=== PATIENT | female | born 1940 | race Caucasian/White ===

== ENCOUNTER → 2017-03-12 | Outpatient (CLI) | payer OTHER ==
[~2017-03-12] MED LIST: ASPI81TA21 PO; CALCTAB7 PO; LISI-725 PO; SIMV20TA2 PO; TRIA75TA53 PO
--- NOTE | 2017-03-12 12:53 | MAMMOGRAPHY REPORT ---
BILATERAL DIGITAL SCREENING MAMMOGRAM WITH CAD: 03/12/2017 CLINICAL HISTORY: Routine screening. Patient has no complaints. TECHNIQUE: Current study was also evaluated with a Computer Aided Detection (CAD) system. Bilatera l CC and MLO views were obtained. COMPARISON: Comparison is made to exams dated: 03/09/2016 mammogram, 03/07/2015 mammogram, 03/06/2014 mammogram, 02/27/2013 mammogram, 02/25/2012 mammogram, and 02/23/2011 mammogram - [facility]. BREAST COMPOSITION: The tissue of both breasts is almost entirely fatty. FINDINGS: No suspicious masses, calcifications, or areas of architectural distortion are noted in e ither breast. There has been no significant interval change compared to prior exams. IMPRESSION: ACR BI-RADS CATEGORY 1: NEGATIVE There is no mammographic evidence of malignancy. A 1 year screening mammogram is recommended. The p atient will receive written notification of the results. Approximately 10% of breast cancers are not detected with mammography. A negative mammographic repor t should not delay biopsy if a clinically suggestive mass is present. Nelly Butler M.D. /:03/12/2017 11:41:57 Certification Officer: Juju MARTINEZ(R)(M), [facility] letter sent: Normal 1/2 BI-RADS Code: ACR BI-RADS Category 1: Negative
== END | disposition home or self-care (01) ==
LOC: C.MAMM 11:01
PROVIDERS: ATTEND Obstetrics & Gynecology
DX: Z12.31 Encounter for screening mammogram for malignant neoplasm of breast (principal)

== ENCOUNTER → 2017-04-01 | Outpatient (CLI) | payer OTHER ==
[2017-04-01 14:33] LABS: BASO % 0.8 %; BASO ABS # 0.05 K/uL (0-0.2); COMPLETE YES; EOS % 3.6 %; HEMATOCRIT 36.9 % (37-47); IG% 0.2 %; LYMPH ABS # 1.48 K/uL (1.2-3.4); MEAN CELL VOLUME 87.6 fL (80-100); MEAN CORPUSCULAR HEMOGLOBIN 29.2 pg (25-34); MEAN CORPUSCULAR HGB CONC 33.3 g/dl (32-36); MEAN PLATELET VOLUME 9.5 fL (7.4-10.4); NEUT % 63.4 %; PLATELET COUNT 275 K/uL (130-400); RED BLOOD COUNT 4.21 M/uL (4.2-5.4); WHITE BLOOD COUNT 6.43 K/uL (4.8-10.8)
[2017-04-01 14:45] LABS: ALKALINE PHOSPHATASE 163 U/L (45-117); ALT/SGPT 36 U/L (12-78); AST/SGOT 21 U/L (15-37); BLOOD UREA NITROGEN 30 mg/dl (7-18); BUN/CREATININE RATIO 21.2 (10-20); CALCIUM 9.4 mg/dl (8.5-10.1); CARBON DIOXIDE 28 mmol/L (21-32); CHLORIDE 102 mmol/L (98-107); GLUCOSE 89 mg/dl (70-99); POTASSIUM 4.9 mmol/L (3.5-5.1); SODIUM 138 mmol/L (136-145)
[2017-04-01 15:20] LABS: CHOLESTEROL 150 mg/dl (0-200); CHOLESTEROL/HDL RATIO 3.1; HDL CHOLESTEROL 48 mg/dl; TRIGLYCERIDES 195 mg/dl (0-150); VERY LOW DENSITY LIPOPROT CALC 39 mg/dl
[2017-04-02 06:42] LABS: ESTIMATED AVERAGE GLUCOSE 131 mg/dl; HA1C FLAG Normal (Normal)
== END | disposition home or self-care (01) ==
LOC: C.LABSPEC 14:12
PROVIDERS: ATTEND Internal Medicine
DX: R73.9 Hyperglycemia, unspecified (principal); I10 Essential (primary) hypertension; E78.5 Hyperlipidemia, unspecified; E04.9 Nontoxic goiter, unspecified; E55.9 Vitamin D deficiency, unspecified

== ENCOUNTER → 2017-05-26 | Outpatient (CLI) | payer OTHER ==
[2017-05-26 11:26] LABS: URINE APPEARANCE CLEAR (CLEAR); URINE BILIRUBIN NEG (NEG); URINE COLOR YELLOW; URINE NITRITE NEG (NEG); URINE SPECIFIC GRAVITY 1.013 (1.000-1.030); UROBILINOGEN NEG (NEG)
[2017-05-26 11:28] LABS: MANUAL MICROSCOPIC REQUIRED? NO; REVIEW REQ? NO
== END | disposition home or self-care (01) ==
LOC: C.LABSPEC 10:48
PROVIDERS: ATTEND Obstetrics & Gynecology
DX: R39.9 Unspecified symptoms and signs involving the genitourinary system (principal); Z01.419 Encounter for gynecological examination (general) (routine) without abnormal findings

== ENCOUNTER → 2017-05-26 | Outpatient (CLI) | payer OTHER | END | disposition home or self-care (01) | LOC: C.PAPS 11:25 | PROVIDERS: ATTEND Obstetrics & Gynecology | DX: Z01.419 Encounter for gynecological examination (general) (routine) without abnormal findings (principal) ==

== ENCOUNTER → 2017-09-24 | Outpatient (CLI) | payer OTHER | END | disposition home or self-care (01) | LOC: C.LABSPEC 12:40 | PROVIDERS: ATTEND Internal Medicine | DX: Z12.11 Encounter for screening for malignant neoplasm of colon (principal) ==

== ENCOUNTER → 2017-10-01 | Outpatient (CLI) | payer OTHER ==
[2017-10-01 13:13] LABS: ESTIMATED AVERAGE GLUCOSE 131 mg/dl; HA1C FLAG Normal (Normal)
[2017-10-01 13:34] LABS: BLOOD UREA NITROGEN 31 mg/dl (7-18); BUN/CREATININE RATIO 20.8 (10-20); CALCIUM 9.8 mg/dl (8.5-10.1); CARBON DIOXIDE 27 mmol/L (21-32); CHLORIDE 102 mmol/L (98-107); CREATININE 1.48 mg/dl (0.60-1.20); GLUCOSE 97 mg/dl (70-99); POTASSIUM 4.4 mmol/L (3.5-5.1); SODIUM 136 mmol/L (136-145)
[2017-10-01 13:38] LABS: CHOLESTEROL 167 mg/dl (0-200); CHOLESTEROL/HDL RATIO 3.3; HDL CHOLESTEROL 50 mg/dl; TRIGLYCERIDES 218 mg/dl (0-150); VERY LOW DENSITY LIPOPROT CALC 44 mg/dl
== END | disposition home or self-care (01) ==
LOC: C.LABSPEC 12:38
PROVIDERS: ATTEND Internal Medicine
DX: R73.9 Hyperglycemia, unspecified (principal); I10 Essential (primary) hypertension; E78.5 Hyperlipidemia, unspecified; E55.9 Vitamin D deficiency, unspecified

== ENCOUNTER 2020-01-20 00:38 | Inpatient (IN) ==
[2020-01-20] MEDS ORDERED: ACETAMINOPHEN 1,000 MG/100 ML VIAL IV STA (00:46)
--- NOTE | 2020-01-20 00:50 | Emergency Department Note ---
History of Present Illness General Chief complaint: Fever Stated complaint: FEVER/COUGH Time Seen by Provider: 01/20/20 00:46 Source: patient, EMS, RN notes reviewed and old records reviewed Mode of arrival: EMS Limitations: no limitations History of Present Illness Provider complaint: fever, shortness of breath Onset (ago): day(s) 2 Location: chest Current Pain Intensity: 0 Associated symptoms: + denies other symptoms Treatments prior to arrival: other (Oxygen) This is an 79-year-old female who presents emergency department with fever of 2 days duration along with shortness of breath. The patient has been in quarantine with the rest of her family. Since that time the patient developed a fever along with altered mental status. Her family called EMS who arrived on scene to find the patient hypoxic 78% on room air. She was placed on oxygen which she is not normally on. Upon arrival to the emergency department the patient has no complaints. Home Medications Home Medications Medication Instructions Recorded Confirmed Type albuterol sulfate [Ventolin HFA] 1 - 2 puff INHALATION DAILY PRN 01/20/20 01/20/20 History amlodipine 2.5 mg PO DAILY 01/20/20 01/20/20 History lisinopril 20 mg PO DAILY 01/20/20 01/20/20 History metoprolol tartrate 50 mg PO BID 01/20/20 01/20/20 History simvastatin 20 mg PO HS 01/20/20 01/20/20 History triamterene-hydrochlorothiazid 1 tab PO DAILY 01/20/20 01/20/20 History Allergies Allergy/AdvReac Type Severity Reaction Status Date / Time amoxicillin AdvReac Hypotension Verified 01/20/20 01:40 Past Med/Surg History Social History Preferred Language: Yi Communication Ability: Effective Beliefs That Will Affect Care: None Current Living Situation: Spouse Other Information That Helps Us Care for You: No Feels Safe at Home: Yes Safety Concerns: Feels Safe At This Time Smoking Status: Unknown if ever smoked Hx Alcohol Use: No Hx Substance Use: No Review of Systems A total of 10 systems reviewed and were otherwise negative Physical Exam Vital Signs Vital Signs - 24 hr 01/20/20 00:38 01/20/20 00:40 01/20/20 00:46 Temperature 39.3 C H Temperature Source Oral Pulse Rate 103 H 103 H Respiratory Rate 23 27 H Blood Pressure 110/46 L Blood Pressure Mean 67 Pulse Oximetry 89 L 94 Oxygen Delivery Method Room Air Nasal Cannula Oxygen Flow Rate 2 Sepsis Recent Fever Within 48 Hours Yes Sepsis New/Unexplained Change in Mental Status Yes Sepsis Action Taken by Nursing Physician Notified Oxygen Flow Rate - Titration Pulse Oximetry Post Tiitration 01/20/20 00:55 01/20/20 01:00 01/20/20 01:30 Temperature Temperature Source Pulse Rate 133 H 164 H Respiratory Rate 29 H 26 H Blood Pressure 90/53 L Blood Pressure Mean 60 Pulse Oximetry 87 L 95 95 Oxygen Delivery Method Nasal Cannula Nasal Cannula Nasal Cannula Oxygen Flow Rate 2 4 4 Sepsis Recent Fever Within 48 Hours Sepsis New/Unexplained Change in Mental Status Sepsis Action Taken by Nursing Oxygen Flow Rate - Titration 4 Pulse Oximetry Post Tiitration 94 01/20/20 01:32 01/20/20 01:45 01/20/20 01:52 Temperature 38.6 C H Temperature Source Oral Pulse Rate 159 H 154 H Respiratory Rate 28 H 21 Blood Pressure 98/44 L Blood Pressure Mean 62 Pulse Oximetry 94 93 Oxygen Delivery Method Nasal Cannula Nasal Cannula Oxygen Flow Rate 4 4 Sepsis Recent Fever Within 48 Hours Sepsis New/Unexplained Change in Mental Status Sepsis Action Taken by Nursing Oxygen Flow Rate - Titration Pulse Oximetry Post Tiitration 01/20/20 02:15 01/20/20 02:30 01/20/20 02:33 Temperature Temperature Source Pulse Rate 135 H 145 H 125 H Respiratory Rate 26 H 25 H 25 H Blood Pressure 83/48 L Blood Pressure Mean 51 Pulse Oximetry 93 93 94 Oxygen Delivery Method Nasal Cannula Nasal Cannula Nasal Cannula Oxygen Flow Rate 4 4 4 Sepsis Recent Fever Within 48 Hours Sepsis New/Unexplained Change in Mental Status Sepsis Action Taken by Nursing Oxygen Flow Rate - Titration Pulse Oximetry Post Tiitration 01/20/20 02:36 01/20/20 02:45 01/20/20 03:01 Temperature 37.4 C Temperature Source Oral Pulse Rate 128 H 143 H Respiratory Rate 29 H 22 Blood Pressure 86/54 L Blood Pressure Mean 63 Pulse Oximetry 93 95 Oxygen Delivery Method Nasal Cannula Nasal Cannula Oxygen Flow Rate 4 4 Sepsis Recent Fever Within 48 Hours Sepsis New/Unexplained Change in Mental Status Sepsis Action Taken by Nursing Oxygen Flow Rate - Titration Pulse Oximetry Post Tiitration 01/20/20 03:15 01/20/20 03:18 01/20/20 03:30 Temperature Temperature Source Pulse Rate 123 H 131 H 124 H Respiratory Rate 32 H 34 H 33 H Blood Pressure 84/55 L Blood Pressure Mean 62 Pulse Oximetry 95 96 91 Oxygen Delivery Method Nasal Cannula Nasal Cannula Nasal Cannula Oxygen Flow Rate 4 4 4 Sepsis Recent Fever Within 48 Hours Sepsis New/Unexplained Change in Mental Status Sepsis Action Taken by Nursing Oxygen Flow Rate - Titration Pulse Oximetry Post Tiitration 01/20/20 03:31 Temperature Temperature Source Pulse Rate 136 H Respiratory Rate 28 H Blood Pressure 116/67 Blood Pressure Mean 89 Pulse Oximetry 93 Oxygen Delivery Method Nasal Cannula Oxygen Flow Rate 4 Sepsis Recent Fever Within 48 Hours Sepsis New/Unexplained Change in Mental Status Sepsis Action Taken by Nursing Oxygen Flow Rate - Titration Pulse Oximetry Post Tiitration GENERAL: Patient is a healthy-appearing well-nourished female HEAD: Normocephalic atraumatic EYES: Ocular movements intact pupils equal and react to light OROPHARYNX mucous membranes are moist no exudates present no erythema or edema present NECK: Supple no nuchal rigidity CHEST: Good equal expansion LUNGS: distant lung sounds CARDIAC: Normal S1 and S2 ABDOMEN: Soft nontender no guarding BACK: No CVA tenderness EXTREMITIES: No pain upon palpation normal muscle strength in all groups no clubbing cyanosis or edema NEURO: Patient is following commands is answering questions appropriately. Alert and oriented x3 Cranial Nerves 2-12 grossly intact Course Administered Medications Norepinephrine Bitartrate 4 mg (/ Dextrose) 254 mls @ 16.669 mls/hr IV .[id number] STA; Protocol Stop: 01/20/20 19:29 Last Admin: 01/20/20 04:20 Dose: 0.05 mcg/kg/min, 16.7 mls/hr Documented by: [id number] Cosigned by: [id number] Discontinued Medications Furosemide (Lasix) 40 mg IV NOW STA Stop: 01/20/20 03:50 Last Admin: 01/20/20 04:05 Dose: 40 mg Documented by: [id number] Acetaminophen (Ofirmev) 1,000 mg in 100 mls @ 400 mls/hr IV NOW STA Stop: 01/20/20 01:00 Last Infusion: 01/20/20 01:18 Dose: 0 mls/hr Documented by: [id number] Admin: 01/20/20 01:03 Dose: 400 mls/hr Documented by: [id number] Magnesium Sulfate/Dextrose (Magnesium Sulfate / D5w) 1 gm in 100 mls @ 100 mls/hr IV ONE ONE Stop: 01/20/20 01:54 Last Infusion: 01/20/20 02:00 Dose: 0 mls/hr Documented by: [id number] Admin: 01/20/20 01:03 Dose: 100 mls/hr Documented by: [id number] Sodium Chloride (Nss 1000ml) 1,000 mls @ 999 mls/hr IV .Q1H1M ONE Stop: 01/20/20 02:29 Last Infusion: 01/20/20 02:38 Dose: 0 mls/hr Documented by: [id number] Admin: 01/20/20 01:43 Dose: 999 mls/hr Documented by: [id number] Levofloxacin/Dextrose (Levaquin/D5w) 750 mg in 150 mls @ 100 mls/hr IV NOW STA Stop: 01/20/20 02:58 Last Infusion: 01/20/20 03:28 Dose: 0 mls/hr Documented by: [id number] Admin: 01/20/20 01:58 Dose: 100 mls/hr Documented by: [id number] Vancomycin HCl (Vancomycin Hcl) 1,000 mg in 270 mls @ 125 mls/hr IV NOW STA Stop: 01/20/20 03:38 Last Infusion: 01/20/20 04:00 Dose: 0 mls/hr Documented by: [id number] Admin: 01/20/20 01:48 Dose: 125 mls/hr Documented by: [id number] Cefepime HCl (Maxipime) 2,000 mg in 20 mls @ 5 mls/min IV NOW STA Stop: 01/20/20 01:32 Last Admin: 01/20/20 01:43 Dose: 5 mls/min Documented by: [id number] Sodium Chloride (Nss 1000ml) 1,000 mls @ 999 mls/hr IV .Q1H1M ONE Stop: 01/20/20 03:04 Last Infusion: 01/20/20 03:39 Dose: 0 mls/hr Documented by: [id number] Admin: 01/20/20 02:38 Dose: 999 mls/hr Documented by: [id number] Sodium Chloride (Nss 1000ml) 500 mls @ 999 mls/hr IV .Q31M ONE Stop: 01/20/20 03:01 Last Infusion: 01/20/20 03:41 Dose: 0 mls/hr Documented by: [id number] Admin: 01/20/20 02:54 Dose: 750 mls/hr Documented by: [id number] Sodium Chloride (Nss 1000ml) 250 mls @ 999 mls/hr IV .Q16M ONE Stop: 01/20/20 02:47 Last Infusion: 01/20/20 03:36 Dose: 0 mls/hr Documented by: [id number] Admin: 01/20/20 03:06 Dose: 500 mls/hr Documented by: [id number] Metoprolol Tartrate (Lopressor) 5 mg IV Q5M PRN PRN Reason: Tachycardia Stop: 02/19/20 03:48 Last Admin: 01/20/20 04:10 Dose: 5 mg Documented by: [id number] Critical Care Time I have personally spent greater than 90 minutes of critical care time in the direct management of this patient. This includes bedside care, interpretation of diagnostic studies, and testing, discussion with consultants, patient, and family members, and other required patient management activities. This 90 minutes is in excess of all separately billable procedures. Medical Decision Making Differential Diagnosis Sepsis, UTI, pneumonia, metabolic, electrolyte abnormalities, cardiac sources, intracerebral event, toxicologic, neurologic, as well as other pathologies. Medical Records Attestation: I reviewed the patient's medical records. Home Medications Current Medication List: was personally reviewed by me Laboratory Data Attestation: I reviewed the patient's lab results. Result diagrams: 01/20/20 00:48 01/20/20 00:48 Lab Results 01/20/20 01/20/20 01/20/20 Range/Units 00:48 00:48 00:48 WBC 7.13 (4.8-10.8) K/uL RBC 3.96 L (4.2-5.4) M/uL Hgb 11.8 L (12.0-16.0) g/dL Hct 35.1 L (37-47) % MCV 88.6 (80-100) fL MCH 29.8 (25-34) pg MCHC 33.6 (32-36) g/dL RDW Std Deviation 45.3 (36.4-46.3) fL RDW Coeff of Anastasiya 13.8 (11.5-14.5) % Plt Count 200 (130-400) K/uL MPV 9.3 (7.4-10.4) fL Immature Gran % (Auto) 0.1 % Neut % (Auto) 81.0 % Lymph % (Auto) 14.0 % [place] % (Auto) 4.6 % Eos % (Auto) 0.0 % Baso % (Auto) 0.3 % Immature Gran # (Auto) 0.01 (0.00-0.02) K/uL Neut # (Auto) 5.77 (1.4-6.5) K/uL Lymph # (Auto) 1.00 L (1.2-3.4) K/uL [place] # (Auto) 0.33 (0.11-0.59) K/uL Eos # (Auto) 0.00 (0-0.5) K/uL Baso # (Auto) 0.02 (0-0.2) K/uL PT 11.4 (9.0-12.0) Seconds INR 1.1 (0.9-1.1) APTT 23.0 (21.0-31.0) Seconds PTT Ratio 0.8 Sodium 136 (136-145) mmol/L Potassium 4.3 (3.5-5.1) mmol/L Chloride 107 (98-107) mmol/L Carbon Dioxide 19 L (21-32) mmol/L Anion Gap 10.0 (3-11) BUN 49 H (7-18) mg/dl Creatinine 2.86 H (0.6-1.2) mg/dl Est Cr Clr Drug Dosing 17.2 ml/min Est GFR ( Amer) 17.2 Est GFR (Non-Af Amer) 14.8 BUN/Creatinine Ratio 17.1 (10-20) Glucose 149 H (70-99) mg/dl Lactate (0.4-2.0) mmol/L Calcium 9.7 (8.5-10.1) mg/dl Magnesium 1.5 L (1.8-2.4) mg/dl Total Bilirubin 0.6 (0.2-1) mg/dl AST 165 H (15-37) U/L ALT 68 (12-78) U/L Alkaline Phosphatase 166 H (45-117) U/L Total Creatine Kinase 6071 H (26-192) U/L CK-MB (CK-2) 14.1 H (0.5-3.6) ng/ml CK/CKMB % Calc 0.2 (0-3.0) Troponin I < 0.015 (0-0.045) ng/ml NT-Pro-B Natriuret Pep 390 (0-1800) pg/ml Total Protein 7.5 (6.4-8.2) gm/dl Albumin 3.7 (3.4-5.0) gm/dl Globulin 3.8 (2.5-4.0) gm/dl Albumin/Globulin Ratio 1.0 (0.9-2) Procalcitonin (0-0.5) ng/ml Random Cortisol mcg/dl Urine Color Urine Appearance (Clear) Urine pH (4.5-7.5) Ur Specific [employer] (1.000-1.030) Urine Protein (Negative) Urine Glucose (UA) (Negative) Urine Ketones (Negative) Urine Blood (Negative) Urine Nitrite (Negative) Urine Bilirubin (Negative) Urine Urobilinogen (Negative) Ur Leukocyte Esterase (Negative) Urine WBC (Auto) (0-5) /hpf Urine RBC (Auto) (0-4) /hpf U Hyaline Cast (Auto) (0-5) /lpf U Epithel Cells (Auto) (0-5) /lpf Urine Bacteria (Auto) (Negative) Granular Casts (0) /lpf Adenovirus (PCR) (NotDetected) B. pertussis DNA (PCR) (NotDetected) B.parapertussis DNA PCR (NotDetected) C. pneumoniae DNA (PCR) (NotDetected) Coronavirus OC43 (PCR) (NotDetected) Coronavirus HKU1 (PCR) (NotDetected) Coronavirus 229E (PCR) (NotDetected) Coronavirus NL63 (PCR) (NotDetected) Human Metapneumovir PCR (NotDetected) Influenza Type A (PCR) (Neg) Influenza Type B (PCR) (Neg) M. pneumoniae (PCR) (NotDetected) Parainfluenza 1 (PCR) (NotDetected) Parainfluenza 2 (PCR) (NotDetected) Parainfluenza 3 (PCR) (NotDetected) Parainfluenza 4 (PCR) (NotDetected) RSV (PCR) (NotDetected) Entero/Rhino (PCR) (NotDetected) 01/20/20 01/20/20 01/20/20 Range/Units 00:48 00:48 00:48 WBC (4.8-10.8) K/uL RBC (4.2-5.4) M/uL Hgb (12.0-16.0) g/dL Hct (37-47) % MCV (80-100) fL MCH (25-34) pg MCHC (32-36) g/dL RDW Std Deviation (36.4-46.3) fL RDW Coeff of Anastasiya (11.5-14.5) % Plt Count (130-400) K/uL MPV (7.4-10.4) fL Immature Gran % (Auto) % Neut % (Auto) % Lymph % (Auto) % [place] % (Auto) % Eos % (Auto) % Baso % (Auto) % Immature Gran # (Auto) (0.00-0.02) K/uL Neut # (Auto) (1.4-6.5) K/uL Lymph # (Auto) (1.2-3.4) K/uL [place] # (Auto) (0.11-0.59) K/uL Eos # (Auto) (0-0.5) K/uL Baso # (Auto) (0-0.2) K/uL PT (9.0-12.0) Seconds INR (0.9-1.1) APTT (21.0-31.0) Seconds PTT Ratio Sodium (136-145) mmol/L Potassium (3.5-5.1) mmol/L Chloride (98-107) mmol/L Carbon Dioxide (21-32) mmol/L Anion Gap (3-11) BUN (7-18) mg/dl Creatinine (0.6-1.2) mg/dl Est Cr Clr Drug Dosing ml/min Est GFR ( Amer) Est GFR (Non-Af Amer) BUN/Creatinine Ratio (10-20) Glucose (70-99) mg/dl Lactate 2.6 H* (0.4-2.0) mmol/L Calcium (8.5-10.1) mg/dl Magnesium (1.8-2.4) mg/dl Total Bilirubin (0.2-1) mg/dl AST (15-37) U/L ALT (12-78) U/L Alkaline Phosphatase (45-117) U/L Total Creatine Kinase (26-192) U/L CK-MB (CK-2) (0.5-3.6) ng/ml CK/CKMB % Calc (0-3.0) Troponin I (0-0.045) ng/ml NT-Pro-B Natriuret Pep (0-1800) pg/ml Total Protein (6.4-8.2) gm/dl Albumin (3.4-5.0) gm/dl Globulin (2.5-4.0) gm/dl Albumin/Globulin Ratio (0.9-2) Procalcitonin 1.50 H (0-0.5) ng/ml Random Cortisol 73.09 mcg/dl Urine Color Urine Appearance (Clear) Urine pH (4.5-7.5) Ur Specific [employer] (1.000-1.030) Urine Protein (Negative) Urine Glucose (UA) (Negative) Urine Ketones (Negative) Urine Blood (Negative) Urine Nitrite (Negative) Urine Bilirubin (Negative) Urine Urobilinogen (Negative) Ur Leukocyte Esterase (Negative) Urine WBC (Auto) (0-5) /hpf Urine RBC (Auto) (0-4) /hpf U Hyaline Cast (Auto) (0-5) /lpf U Epithel Cells (Auto) (0-5) /lpf Urine Bacteria (Auto) (Negative) Granular Casts (0) /lpf Adenovirus (PCR) (NotDetected) B. pertussis DNA (PCR) (NotDetected) B.parapertussis DNA PCR (NotDetected) C. pneumoniae DNA (PCR) (NotDetected) Coronavirus OC43 (PCR) (NotDetected) Coronavirus HKU1 (PCR) (NotDetected) Coronavirus 229E (PCR) (NotDetected) Coronavirus NL63 (PCR) (NotDetected) Human Metapneumovir PCR (NotDetected) Influenza Type A (PCR) (Neg) Influenza Type B (PCR) (Neg) M. pneumoniae (PCR) (NotDetected) Parainfluenza 1 (PCR) (NotDetected) Parainfluenza 2 (PCR) (NotDetected) Parainfluenza 3 (PCR) (NotDetected) Parainfluenza 4 (PCR) (NotDetected) RSV (PCR) (NotDetected) Entero/Rhino (PCR) (NotDetected) 01/20/20 01/20/20 01/20/20 Range/Units 00:55 00:55 02:47 WBC (4.8-10.8) K/uL RBC (4.2-5.4) M/uL Hgb (12.0-16.0) g/dL Hct (37-47) % MCV (80-100) fL MCH (25-34) pg MCHC (32-36) g/dL RDW Std Deviation (36.4-46.3) fL RDW Coeff of Anastasiya (11.5-14.5) % Plt Count (130-400) K/uL MPV (7.4-10.4) fL Immature Gran % (Auto) % Neut % (Auto) % Lymph % (Auto) % [place] % (Auto) % Eos % (Auto) % Baso % (Auto) % Immature Gran # (Auto) (0.00-0.02) K/uL Neut # (Auto) (1.4-6.5) K/uL Lymph # (Auto) (1.2-3.4) K/uL [place] # (Auto) (0.11-0.59) K/uL Eos # (Auto) (0-0.5) K/uL Baso # (Auto) (0-0.2) K/uL PT (9.0-12.0) Seconds INR (0.9-1.1) APTT (21.0-31.0) Seconds PTT Ratio Sodium (136-145) mmol/L Potassium (3.5-5.1) mmol/L Chloride (98-107) mmol/L Carbon Dioxide (21-32) mmol/L Anion Gap (3-11) BUN (7-18) mg/dl Creatinine (0.6-1.2) mg/dl Est Cr Clr Drug Dosing ml/min Est GFR ( Amer) Est GFR (Non-Af Amer) BUN/Creatinine Ratio (10-20) Glucose (70-99) mg/dl Lactate 2.0 (0.4-2.0) mmol/L Calcium (8.5-10.1) mg/dl Magnesium (1.8-2.4) mg/dl Total Bilirubin (0.2-1) mg/dl AST (15-37) U/L ALT (12-78) U/L Alkaline Phosphatase (45-117) U/L Total Creatine Kinase (26-192) U/L CK-MB (CK-2) (0.5-3.6) ng/ml CK/CKMB % Calc (0-3.0) Troponin I (0-0.045) ng/ml NT-Pro-B Natriuret Pep (0-1800) pg/ml Total Protein (6.4-8.2) gm/dl Albumin (3.4-5.0) gm/dl Globulin (2.5-4.0) gm/dl Albumin/Globulin Ratio (0.9-2) Procalcitonin (0-0.5) ng/ml Random Cortisol mcg/dl Urine Color Urine Appearance (Clear) Urine pH (4.5-7.5) Ur Specific [employer] (1.000-1.030) Urine Protein (Negative) Urine Glucose (UA) (Negative) Urine Ketones (Negative) Urine Blood (Negative) Urine Nitrite (Negative) Urine Bilirubin (Negative) Urine Urobilinogen (Negative) Ur Leukocyte Esterase (Negative) Urine WBC (Auto) (0-5) /hpf Urine RBC (Auto) (0-4) /hpf U Hyaline Cast (Auto) (0-5) /lpf U Epithel Cells (Auto) (0-5) /lpf Urine Bacteria (Auto) (Negative) Granular Casts (0) /lpf Adenovirus (PCR) Not Detected (NotDetected) B. pertussis DNA (PCR) Not Detected (NotDetected) B.parapertussis DNA PCR Not Detected (NotDetected) C. pneumoniae DNA (PCR) Not Detected (NotDetected) Coronavirus OC43 (PCR) Not Detected (NotDetected) Coronavirus HKU1 (PCR) Not Detected (NotDetected) Coronavirus 229E (PCR) Not Detected (NotDetected) Coronavirus NL63 (PCR) Not Detected (NotDetected) Human Metapneumovir PCR Not Detected (NotDetected) Influenza Type A (PCR) Neg for Influ A Not Detected (Neg) Influenza Type B (PCR) Neg for Influ B Not Detected (Neg) M. pneumoniae (PCR) Not Detected (NotDetected) Parainfluenza 1 (PCR) Not Detected (NotDetected) Parainfluenza 2 (PCR) Not Detected (NotDetected) Parainfluenza 3 (PCR) Not Detected (NotDetected) Parainfluenza 4 (PCR) Not Detected (NotDetected) RSV (PCR) Not Detected (NotDetected) Entero/Rhino (PCR) Not Detected (NotDetected) 01/20/20 Range/Units 03:30 WBC (4.8-10.8) K/uL RBC (4.2-5.4) M/uL Hgb (12.0-16.0) g/dL Hct (37-47) % MCV (80-100) fL MCH (25-34) pg MCHC (32-36) g/dL RDW Std Deviation (36.4-46.3) fL RDW Coeff of Anastasiya (11.5-14.5) % Plt Count (130-400) K/uL MPV (7.4-10.4) fL Immature Gran % (Auto) % Neut % (Auto) % Lymph % (Auto) % [place] % (Auto) % Eos % (Auto) % Baso % (Auto) % Immature Gran # (Auto) (0.00-0.02) K/uL Neut # (Auto) (1.4-6.5) K/uL Lymph # (Auto) (1.2-3.4) K/uL [place] # (Auto) (0.11-0.59) K/uL Eos # (Auto) (0-0.5) K/uL Baso # (Auto) (0-0.2) K/uL PT (9.0-12.0) Seconds INR (0.9-1.1) APTT (21.0-31.0) Seconds PTT Ratio Sodium (136-145) mmol/L Potassium (3.5-5.1) mmol/L Chloride (98-107) mmol/L Carbon Dioxide (21-32) mmol/L Anion Gap (3-11) BUN (7-18) mg/dl Creatinine (0.6-1.2) mg/dl Est Cr Clr Drug Dosing ml/min Est GFR ( Amer) Est GFR (Non-Af Amer) BUN/Creatinine Ratio (10-20) Glucose (70-99) mg/dl Lactate (0.4-2.0) mmol/L Calcium (8.5-10.1) mg/dl Magnesium (1.8-2.4) mg/dl Total Bilirubin (0.2-1) mg/dl AST (15-37) U/L ALT (12-78) U/L Alkaline Phosphatase (45-117) U/L Total Creatine Kinase (26-192) U/L CK-MB (CK-2) (0.5-3.6) ng/ml CK/CKMB % Calc (0-3.0) Troponin I (0-0.045) ng/ml NT-Pro-B Natriuret Pep (0-1800) pg/ml Total Protein (6.4-8.2) gm/dl Albumin (3.4-5.0) gm/dl Globulin (2.5-4.0) gm/dl Albumin/Globulin Ratio (0.9-2) Procalcitonin (0-0.5) ng/ml Random Cortisol mcg/dl Urine Color Yellow Urine Appearance Cloudy A (Clear) Urine pH 5.0 (4.5-7.5) Ur Specific [employer] 1.019 (1.000-1.030) Urine Protein Negative (Negative) Urine Glucose (UA) Negative (Negative) Urine Ketones Negative (Negative) Urine Blood 2+ H (Negative) Urine Nitrite Negative (Negative) Urine Bilirubin Negative (Negative) Urine Urobilinogen Negative (Negative) Ur Leukocyte Esterase Negative (Negative) Urine WBC (Auto) 1-5 (0-5) /hpf Urine RBC (Auto) 0-4 (0-4) /hpf U Hyaline Cast (Auto) 10-30 H (0-5) /lpf U Epithel Cells (Auto) 20-30 H (0-5) /lpf Urine Bacteria (Auto) 1+ H (Negative) Granular Casts 1-5 H (0) /lpf Adenovirus (PCR) (NotDetected) B. pertussis DNA (PCR) (NotDetected) B.parapertussis DNA PCR (NotDetected) C. pneumoniae DNA (PCR) (NotDetected) Coronavirus OC43 (PCR) (NotDetected) Coronavirus HKU1 (PCR) (NotDetected) Coronavirus 229E (PCR) (NotDetected) Coronavirus NL63 (PCR) (NotDetected) Human Metapneumovir PCR (NotDetected) Influenza Type A (PCR) (Neg) Influenza Type B (PCR) (Neg) M. pneumoniae (PCR) (NotDetected) Parainfluenza 1 (PCR) (NotDetected) Parainfluenza 2 (PCR) (NotDetected) Parainfluenza 3 (PCR) (NotDetected) Parainfluenza 4 (PCR) (NotDetected) RSV (PCR) (NotDetected) Entero/Rhino (PCR) (NotDetected) Imaging Data Attestation: I personally reviewed and interpreted this imaging study as follows: My Impression: 1 view of the chest was interpreted by me shows a infiltrate at the right lower lobe. A repeat chest x-ray is concerning for increasing pulmonary edema ECG Data Attestation: I personally reviewed and interpreted this ECG as follows: Indication: + altered mental status Rate (beats per minute): 106 Rhythm: + sinus tachycardia ECG Intervals/blocks: + Normal QT-c (401) ECG [place]: + Normal ECG ST segments: + ST depression (Lateral) Comparison ECG Date: no prior available Additional Comments: Repeat EKG shows sinus tachycardia with premature supraventricular complex, ST depressions in the lateral leads QTC is 438 ventricular rate is 154 normal axis Blood Pressure Blood Pressure Findings: Low blood pressure MDM Narrative This is an 79-year-old female who presents the emergency department complaining of fever. Upon arrival to the emergency department the patient appears to be septic. Her lactate is elevated. She is hypoxic. She does not have an elevation in her white blood cell count however became hypotensive and tachycardic. Due to this she was given 30 mL's per kilogram of fluid. She does not have a recent Covid exposure and has been at home for the past 2 weeks. However her bio fire test is negative therefore a gould test was sent. The patient remained hypotensive in the emergency department and began coughing up large amounts of pus therefore she was given Lasix along with Lopressor. Repeat examination revealed improvement the patient's symptoms. The patient was started on cefepime Levaquin vancomycin. I did discuss the case with both the intensive care as well as the hospitalist service who agreed to admit the patient. Patient is in agreement with the treatment plan. Impression & Plan Fever, Hypoxia, Acute hypotension Discharge Plan Visit Data Chief Complaint: Fever Stated Complaint: FEVER/COUGH ED Provider: Sanya Hooks Discharge Problem: Fever, Hypoxia, Acute hypotension Discharge Instructions Interventions: ED Discharge Assessment Last Done: 01/20/20 04:02 Discharge Problem: Fever Qualifiers: Fever type: unspecified Qualified Code(s): R50.9 - Fever, unspecified
[2020-01-20] MEDS ORDERED: MAGNESIUM SULFATE / D5W 1 GM/100 ML BAG IV ONE (00:55)
[2020-01-20 01:07] LABS: Basophils # (auto) 0.02 K/uL (0-0.2); Basophils % (auto) 0.3 %; Hematocrit (blood only) 35.1 % (37-47); Hemoglobin 11.8 g/dL (12.0-16.0); Immature Granulocytes # (auto) 0.01 K/uL (0.00-0.02); Immature Granulocytes % (auto) 0.1 %; Mean Corpuscular Hemoglobin 29.8 pg (25-34); Mean Corpuscular Hgb Conc 33.6 g/dL (32-36); Mean Corpuscular Volume 88.6 fL (80-100); Mean Platelet Volume 9.3 fL (7.4-10.4); Monocytes # (auto) 0.33 K/uL (0.11-0.59); Monocytes % (auto) 4.6 %; Neutrophils # (auto) 5.77 K/uL (1.4-6.5); Platelet Count 200 K/uL (130-400); RDW Coefficient of Variation 13.8 % (11.5-14.5); RDW Standard Deviation 45.3 fL (36.4-46.3); Red Blood Count 3.96 M/uL (4.2-5.4); White Blood Count 7.13 K/uL (4.8-10.8)
[2020-01-20 01:16] LABS: INR 1.1 (0.9-1.1); Partial Thromboplastin Ratio 0.8; Prothrombin Time 11.4 Seconds (9.0-12.0)
[2020-01-20 01:25] LABS: Alanine Aminotransferase 68 U/L (12-78); Albumin Level 3.7 gm/dl (3.4-5.0); Aspartate Aminotransferase 165 U/L (15-37); BUN Creatinine Ratio 17.1 (10-20); Blood Urea Nitrogen 49 mg/dl (7-18); Calcium 9.7 mg/dl (8.5-10.1); Carbon Dioxide 19 mmol/L (21-32); Chloride 107 mmol/L (98-107); Creatinine Clr Calc Pharmacy 17.2 ml/min; Est GFR (African American) 17.2; Est GFR (Non-African American) 14.8; Glucose 149 mg/dl (70-99); Magnesium 1.5 mg/dl (1.8-2.4); Potassium 4.3 mmol/L (3.5-5.1); Sodium 136 mmol/L (136-145)
[2020-01-20] MEDS ORDERED: LEVOFLOXACIN/D5W 750 MG/150 ML BAG IV STA (01:29)
[2020-01-20] MEDS ORDERED: SODIUM CHLORIDE 0.9% 1000ML 1,000 ML IV ONE ×2 (01:29→02:04)
[2020-01-20] MEDS ORDERED: CEFEPIME 2,000 MG/20 ML VIAL IV STA (01:29)
[2020-01-20] MEDS ORDERED: VANCOMYCIN HCL 1,000 MG/270 ML BAG IV STA (01:29)
[2020-01-20] MEDS ORDERED: VANCOMYCIN CONSULT ACTIVE PRN ×2 (01:29→04:45)
[2020-01-20 01:40] LABS: Alkaline Phosphatase 166 U/L (45-117); Bilirubin,Total 0.6 mg/dl (0.2-1); Creatine Kinase 6071 U/L (26-192); Creatine Kinase MB 14.1 ng/ml (0.5-3.6); Globulin 3.8 gm/dl (2.5-4.0); Total Protein 7.5 gm/dl (6.4-8.2); Troponin I < 0.015 ng/ml (0-0.045)
[2020-01-20 01:55] LABS: Influenza A virus by PCR Neg for Influ A (Neg); Influenza B virus by PCR Neg for Influ B (Neg)
[2020-01-20 02:13] LABS: Adenovirus PCR Not Detected (NotDetected); Bordetella parapertussis PCR Not Detected (NotDetected); Bordetella pertussis PCR Not Detected (NotDetected); Chlamydia pneumoniae PCR Not Detected (NotDetected); Coronavirus 229E PCR Not Detected (NotDetected); Coronavirus HKU1 PCR Not Detected (NotDetected); Coronavirus NL63 PCR Not Detected (NotDetected); Coronavirus OC43PCR Not Detected (NotDetected); Human Metapneumovirus PCR Not Detected (NotDetected); Influenza A PCR Not Detected (NotDetected); Influenza B PCR Not Detected (NotDetected); Mycoplasma pneumoniae PCR Not Detected (NotDetected); Parainfluenza Virus 1 PCR Not Detected (NotDetected); Parainfluenza Virus 2 PCR Not Detected (NotDetected); Parainfluenza Virus 3 PCR Not Detected (NotDetected); Parainfluenza Virus 4 PCR Not Detected (NotDetected); Respiratory Syncytial VirusPCR Not Detected (NotDetected); Rhinovirus/Enterovirus PCR Not Detected (NotDetected)
[2020-01-20] MEDS ORDERED: SODIUM CHLORIDE 0.9% 1000ML 500 ML IV ONE (02:31)
[2020-01-20] MEDS ORDERED: SODIUM CHLORIDE 0.9% 1000ML 250 ML IV ONE (02:32)
[2020-01-20] MEDS ORDERED: METOPROLOL TARTRATE 1 MG/ML VIAL IV PRN (03:49)
[2020-01-20] MEDS ORDERED: FUROSEMIDE 40 MG/4 ML VIAL IV STA (03:49)
[2020-01-20 03:51] LABS: NT Pro B Type Natriuretic Pept 390 pg/ml (0-1800)
[2020-01-20 03:56] LABS: iSTAT Arterial Blood Gas HCO3 17 meg/L (19-24); iSTAT Arterial Blood Gas pCO2 37 mmHg (35-46); iSTAT Arterial Blood Gas pH 7.27 (7.35-7.45); iSTAT Arterial Blood Gas pO2 72 mmHg (80-95); iSTAT Carbon Dioxide 18 mmol/L (24-31); iSTAT Hematocrit 26 % (37-47); iSTAT Hemoglobin 8.8 g/dl (12.0-16.0); iSTAT Potassium 3.7 mmol/L (3.3-5.0); iSTAT Sodium 139 mmol/L (135-144)
[2020-01-20] MEDS ORDERED: AMIODARONE / D5W 150 MG/100 ML BAG IV STA (04:03)
[2020-01-20] MEDS ORDERED: STAT IV Infusion **Titration per Protocol STA ×2 (04:03)
[2020-01-20] MEDS ORDERED: AMIODARONE IV BOLUS & DRIP IV STA (04:03)
[2020-01-20] MEDS ORDERED: 0.2 MICRON FILTER SET 1 EA IV ONE (04:03)
[2020-01-20] MEDS ORDERED: NOREPINEPHRINE (Adult STAT Only) 4 MG in D5W 250 ML IV STA (04:15)
[2020-01-20 04:25] LABS: Appearance Urine Cloudy (Clear); Bilirubin Urine Negative (Negative); Blood Urine 2+ (Negative); Color Urine Yellow; Epithelial Cell Urine Auto 20-30 /lpf (0-5); Glucose Urine UA Negative (Negative); Ketones Urine Negative (Negative); Leukocyte Esterase Urine Negative (Negative); Nitrite Urine Negative (Negative); Protein Urine Negative (Negative); RBC Urine Automated 0-4 /hpf (0-4); Specific Gravity Urine 1.019 (1.000-1.030); Urobilinogen Urine Negative (Negative)
[2020-01-20] MEDS ORDERED: VANCOMYCIN HCL 750 MG in SODIUM CHLORIDE 0.9% 250 ML IV ONE (04:45)
[2020-01-20] MEDS: NOREPINEPHRINE BIT INJ 8 MG in DEXTROSE 5% 500 ML IV SCH (04:45)
[2020-01-20] MEDS ORDERED: ICU PROTOCOL FOR HYPERGLYCEMIA PRN (04:45)
[2020-01-20] MEDS ORDERED: AMIODARONE 450 MG in D5W 250ML IN *POLYOLEFIN BAG* 241 ML IV SCH ×2 (05:00→11:00)
--- NOTE | 2020-01-20 05:07 | Critical Care Consultation ---
Date of Consultation January 20, 2020 Assessment & Plan (1) Admitted to intensive care unit: Reason Critically Ill: 79-year-old female with acute hypoxic respiratory failure with tachycardia and profound hypotension requiring chemical cardioversion and vasopressor support. NEURO - * CAM ICU: NEGATIVE CARDIAC/VASCULAR - * A. fib with RVR: * Responded well to a total of 5 mg IV metoprolol and 2 separate 2.5 mg pushes. * Converted to normal sinus. * Initially ordered amiodarone which can be held at this time. * Required addition of norepinephrine for hypotension. * Likely contributing to patient's symptoms of shortness of breath and concerning developing infiltrative changes on chest x-ray. * Monitor on telemetry. RESPIRATORY - * Acute hypoxic respiratory failure: * Presents with shortness of breath and hypoxia over the last 48 hours. * Patient significantly febrile on presentation. * Concerning infiltrative changes noted in the right middle lobe. * Progressively worsening of rapid period of time which is certainly of concern given current state of pandemic situation. * Supplemental O2 as needed. * ABG demonstrates respiratory acidosis. GI/NUTRITION - * N.p.o. at this time while on pressors. RENAL/LYTES - * Presumed acute kidney injury: * Received aggressive IV fluid resuscitation in the emergency department. * Judicious use of IV fluids and what appears to be patient who is a degree of volume overloaded. * Patient may actually benefit from volume after she is cardioverted to a normal sinus. * Replace electrolytes as needed. - * Tron[place]o in place - Strict I&Os. ENDO - * No history of diabetes. * BSGs per unit protocol. ISS --> gtt per unit policy. HEME - * Stable H&H. ID - * Sepsis from likely pulmonary source: * Patient presenting with fever, hypoxia, and infiltrative changes on chest x-ray. * Chest x-ray does appear to favor initially a RIGHT basilar infiltrative change, however this did rapidly progressed to associated pulmonary edema. * No reported history of vomiting or recent history of aspiration. * Covered appropriately with antibiotics to this point. * Respiratory PCR negative. * Patient certainly is at low risk for COVID-19 infection as she has had no known recent exposures and has not left her house for 3 weeks. * Will certainly see how her pulmonary status improves or changes after diuresis and initiation of antibiotics. LINES/IV ACCESS - * PIVs x2 * Tron[place]o catheter DVT PROPHYLAXIS - * Heparin * SCDs I have personally spent 45 minutes of critical care time in the direct management of this patient. This is a life/limb threatening event. This includes time spent evaluating patient, direct bedside care, chart review, placing orders, interpretation of diagnostic studies, discussion with consultants, patient, and family members, as well as other required patient management activities. This time is exclusive of all separately billable procedures, and teaching time and separate from and in addition to any other critical care service time. Thank you for allowing us to participate in the care of this patient. Please refer to my attending physician's documentation for any further recommendations. (2) Pneumonia: (3) Acute hypotension: (4) Hypoxia: (5) Fever: (6) Tachycardia: (7) Sepsis: Supervising Physician Co-Signing Physician Notes Patient seen and chart reviewed. Discussed with critical care KAZ. Agree with assessment and plan as noted. 79-year-old female admitted with A. fib and RVR and hypoxemia with fevers. Appears to be consistent with pneumonia. She is being ruled out for coronavirus infection. May have had some diastolic dysfunction exacerbated by her rapid heart rate. She required vasopressors but these are rapidly being weaned off. Plan on continuing antibiotics and following up on results of serological evaluation and response to therapy. When she is off pressors, she can be transferred out of the ICU to the floor. She did present with acute kidney injury and metabolic acidosis. Creatinine is improving. Continue to follow. History of Present Illness Attending Physician: Shelby Vanessa, History of Present Illness Patient is an 79-year-old female with significant past medical history of hypertension and hyperlipidemia who presented to the emergency department via EMS for evaluation of worsening cough and shortness of breath for the last 48 hours. Upon arrival, the patient was noted to be hypotensive, tachycardic, and febrile. She received weight appropriate dose of resuscitative crystalloid fluids. She was hypoxic on room air in the 70s. She did respond to supplemental oxygen therapy. Heart rate was in the 140s. Patient has had no recent travel. She states that she has not left her house for the last 3 weeks. She denies any sick contacts, particularly individuals exposed to COVID-19. She denies any complaints of headaches, body aches, anosmia, dizziness, lig htheadedness, chest pain, palpitations, pleuritic pain, hemoptysis, nausea, or vomiting. She denies any abdominal pain. She denies any recent sick contacts. Allergies Allergy/AdvReac Type Severity Reaction Status Date / Time amoxicillin AdvReac Hypotension Verified 01/20/20 01:40 Home Medications Home Medications Medication Instructions Recorded Confirmed Type albuterol sulfate [Ventolin HFA] 1 - 2 puff INHALATION DAILY PRN 01/20/20 01/20/20 History amlodipine 2.5 mg PO DAILY 01/20/20 01/20/20 History lisinopril 20 mg PO DAILY 01/20/20 01/20/20 History metoprolol tartrate 50 mg PO BID 01/20/20 01/20/20 History simvastatin 20 mg PO HS 01/20/20 01/20/20 History triamterene-hydrochlorothiazid 1 tab PO DAILY 01/20/20 01/20/20 History Patient History Medical History Dyslipidemia Hypertension Social History Preferred Language: Finnish Communication Ability: Effective Beliefs That Will Affect Care: None Current Living Situation: Spouse Feels Safe at Home: Yes Smoking Status: Unknown if ever smoked Hx Alcohol Use: No Hx Substance Use: No Review of Systems Review of Systems: A complete 10 point review of systems was reviewed with the patient with pertinent positives and negatives as per history of present illness. All else were negative. Physical Exam Physical Exam: VITAL SIGNS - Vital signs and nursing notes were reviewed. GENERAL - 79-year-old female appearing her stated age who is mild respiratory distress. Communicates well with provider and answers questions appropriately. SKIN - Without rashes. HEAD - NC/AT. EYES - PERRL with EOMI bilaterally. Sclera anicteric. Palpebral conjunctiva pink and moist with no injection noted. EARS - No deformities of external structures noted on gross examination bilaterally. NOSE - Midline and without cyanosis. No epistaxis or purulent drainage noted. MOUTH/OROPHARYNX - Without perioral cyanosis. Buccal mucosa pink and moist and without leukoplakia. NECK - Neck with FROM. Supple to palpation. No nuchal rigidity. LUNGS -tachypneic. Coarse breath sounds appreciated RIGHT greater than left. Upper airway noises with gurgling from significant secretions. CARDIAC - RRR with S1/S2. No murmur, rubs, or gallops appreciated. ABDOMEN - Abdominal contour obese without pulsations or visible masses. BS normoactive all four quadrants. No tenderness, palpable masses, hepatosplenomegaly, or ascites noted. EXTREMITIES - No clubbing or peripheral cyanosis. No pretibial edema present. +3/5 radial and dorsalis pedis pulses palpated throughout. +5/5 strength noted in UE/LE bilaterally. NEUROLOGIC - Cranial nerves II through XII grossly intact. Sensory intact to light touch throughout. PSYCH - A&Ox3 and cooperates fully with examiner. Pt is very pleasant and interacts well with examiner. Results & Data Results & Data ([facility]) Vital Signs (Past 12 Hours) Vital Signs Temp Pulse Resp BP Pulse Ox Pulse Ox 01/20/20 04:48 90 01/20/20 04:14 91 H 25 H 85/50 L 93 01/20/20 04:12 91 H 27 H 82/48 L 93 01/20/20 04:10 125 H 21 77/58 L 93 01/20/20 04:08 90 29 H 90/52 L 95 01/20/20 04:07 93 H 28 H 90/52 L 93 01/20/20 04:05 112 H 34 H 96/68 L 93 01/20/20 04:04 102 H 28 H 79/50 L 93 01/20/20 04:03 141 H 29 H 79/53 L 93 01/20/20 04:02 37.5 C 149 H 29 H 76/51 L 93 01/20/20 04:01 128 H 28 H 95 01/20/20 03:57 139 H 30 H 94/55 L 95 01/20/20 03:44 125 H 28 H 125/73 95 01/20/20 03:31 136 H 28 H 116/67 93 01/20/20 03:30 124 H 33 H 91 01/20/20 03:18 131 H 34 H 84/55 L 96 01/20/20 03:15 123 H 32 H 95 01/20/20 03:01 143 H 22 86/54 L 95 01/20/20 02:45 128 H 29 H 93 01/20/20 02:36 37.4 C 01/20/20 02:33 125 H 25 H 83/48 L 94 01/20/20 02:30 145 H 25 H 93 01/20/20 02:15 135 H 26 H 93 01/20/20 01:52 38.6 C H 01/20/20 01:45 154 H 21 98/44 L 93 01/20/20 01:32 159 H 28 H 94 01/20/20 01:30 164 H 26 H 90/53 L 95 01/20/20 01:00 133 H 29 H 95 01/20/20 00:55 87 L 01/20/20 00:46 103 H 27 H 01/20/20 00:40 94 01/20/20 00:38 39.3 C H 103 H 23 110/46 L 89 L Coding Level of Care Code Critical Care 1st 30-74 mins Diagnoses Admitted to intensive care unit Z78.9 Pneumonia J18.9 Acute hypotension I95.9 Hypoxia R09.02 Fever R50.9 Fever type: unspecified Tachycardia R00.0 Sepsis A41.9 Sepsis acute organ dysfunction status: unspecified Sepsis type: sepsis due to unspecified organism Time Spent (min) 45 (1) Fever Fever type: unspecified Qualified Code(s): R50.9 - Fever, unspecified (2) Sepsis Sepsis acute organ dysfunction status: unspecified Sepsis type: sepsis due to unspecified organism Qualified Code(s): A41.9 - Sepsis, unspecified organism
--- NOTE | 2020-01-20 05:23 | History & Physical Report ---
Date of Service January 20, 2020 Assessment & Plan (1) Sepsis: 79yo C female presenting with sepsis, febrile/tachycardic/tachypneic/hypoxic requiring supplemental O2. Patient with elevated lactic acid and procalcitonin on admission labs as well as elevated AST, CK and mild lymphopenia. Biofire performed in ER negative to include negative influenza. SARS-CoV test pending. UA does not suggest infection. Blood cultures sent. Initial CXR with possible RLL airspace opacity, seems to have worsened on repeat. Possibly secondary to CHF in setting of tachycardia vs progression of infectious/inflammatory process Patient continues to be hypotensive despite 2L IV NSS. BP presently 85/50 1. Neuro - no focal deficits -continue to monitor 2. CV - tachycardic, hypotensive in setting of presumed infection, possibly Covid-19 -Patient given IV Metoprolol and Lasix in the ER with improvement in HR. BP remains low -Levophed as needed to maintain MAP > 65 -Hold antihypertensive agents 3. Pulm - patient with hypoxic respiratory failure requiring supplemental O2. ?infectious/inflammatory process vs element of CHF -Continue supplemental O2 4. GI - no active issues 5. - Elevated BUN, Cr and CK -IVF as above -Repeat labs -Avoid nephrotoxic agents -Renal dosing where needed 6. Heme - Normochromic/normocytic anemia with Hgb=11.8, Hct=35.1. No leukocytosis but mild lymphopenia -Continue to monitor CBC 7. ID - Presumed sepsis, uncertain source -Follow cultures -Covid-19 testing pending. Patient is to be placed in a negative pressure isolation room. Contact and Airborne precautions -Vancomycin, Aztreonam for empiric coverage (patient has Amoxicillin listed as an allergy with reaction being hypotension) 8. Endo - No active issues 9. F/E/N - patient received IVF in the ER, IV Mg x 1 gm given. NPO for now Ppx - Heparin 5000 u TID Code - Conditional Dispo - Admit to MICU, rule out Covid-19 (2) Hypertension: (3) Dyslipidemia: (4) Tachycardia: Admission and Anticipated Discharge Date Admission Date: January 20, 2020 History of Present Illness Chief Complaint: SOB, fever Primary Care Provider: Paresh Myers MD 79yo C female with history of HTN/HLP presenting with SOB, fever and cough x 2 days. Patient has not traveled. No sick contacts, no known exposure to Covid- 19. EMS reports hypoxic 78% on room air when the arrived. Improvement with supplemental O2 While in the ER she was febrile, tachycardic, hypotensive, tachypneic and hypoxic requiring supplemental O2 BioFire panel and Covid testing sent Remainder of history obtained by ICU team ER Course: Tylenol, Cefepime, Vancomycin, Levaquin, Magnesium x 1gm, NSS x 2L Allergies Allergy/AdvReac Type Severity Reaction Status Date / Time amoxicillin AdvReac Hypotension Verified 01/20/20 01:40 Home Medications Home Medications Medication Instructions Recorded Confirmed Type albuterol sulfate [Ventolin HFA] 1 - 2 puff INHALATION DAILY PRN 01/20/20 01/20/20 History amlodipine 2.5 mg PO DAILY 01/20/20 01/20/20 History lisinopril 20 mg PO DAILY 01/20/20 01/20/20 History metoprolol tartrate 50 mg PO BID 01/20/20 01/20/20 History simvastatin 20 mg PO HS 01/20/20 01/20/20 History triamterene-hydrochlorothiazid 1 tab PO DAILY 01/20/20 01/20/20 History Past Med/Surg History Medical History (Updated 01/20/20 @ 05:05 by Shelby Vanessa DO) Dyslipidemia Hypertension Social History Preferred Language: Mohawk Communication Ability: Effective Beliefs That Will Affect Care: None Current Living Situation: Spouse Other Information That Helps Us Care for You: No Feels Safe at Home: Yes Safety Concerns: Feels Safe At This Time Smoking Status: Unknown if ever smoked Hx Alcohol Use: No Hx Substance Use: No Review of Systems Review of Systems: Other Physical Exam Physical Exam: Exam performed by ICU staff Results & Data Results & Data ([facility]) Vital Signs (Past 12 Hours) Vital Signs Temp Pulse Resp BP Pulse Ox Pulse Ox 01/20/20 04:48 90 01/20/20 04:14 91 H 25 H 85/50 L 93 01/20/20 04:12 91 H 27 H 82/48 L 93 01/20/20 04:10 125 H 21 77/58 L 93 01/20/20 04:08 90 29 H 90/52 L 95 01/20/20 04:07 93 H 28 H 90/52 L 93 01/20/20 04:05 112 H 34 H 96/68 L 93 01/20/20 04:04 102 H 28 H 79/50 L 93 01/20/20 04:03 141 H 29 H 79/53 L 93 01/20/20 04:02 37.5 C 149 H 29 H 76/51 L 93 01/20/20 04:01 128 H 28 H 95 01/20/20 03:57 139 H 30 H 94/55 L 95 01/20/20 03:44 125 H 28 H 125/73 95 01/20/20 03:31 136 H 28 H 116/67 93 01/20/20 03:30 124 H 33 H 91 01/20/20 03:18 131 H 34 H 84/55 L 96 01/20/20 03:15 123 H 32 H 95 01/20/20 03:01 143 H 22 86/54 L 95 01/20/20 02:45 128 H 29 H 93 01/20/20 02:36 37.4 C 01/20/20 02:33 125 H 25 H 83/48 L 94 01/20/20 02:30 145 H 25 H 93 01/20/20 02:15 135 H 26 H 93 01/20/20 01:52 38.6 C H 01/20/20 01:45 154 H 21 98/44 L 93 01/20/20 01:32 159 H 28 H 94 01/20/20 01:30 164 H 26 H 90/53 L 95 01/20/20 01:00 133 H 29 H 95 01/20/20 00:55 87 L 01/20/20 00:46 103 H 27 H 01/20/20 00:40 94 01/20/20 00:38 39.3 C H 103 H 23 110/46 L 89 L Laboratory Results Lab Results 01/20/20 01/20/20 01/20/20 Range/Units 00:48 00:48 00:48 WBC 7.13 (4.8-10.8) K/uL RBC 3.96 L (4.2-5.4) M/uL Hgb 11.8 L (12.0-16.0) g/dL POC Hgb (12.0-16.0) g/dl Hct 35.1 L (37-47) % POC Hct (37-47) % MCV 88.6 (80-100) fL MCH 29.8 (25-34) pg MCHC 33.6 (32-36) g/dL RDW Std Deviation 45.3 (36.4-46.3) fL RDW Coeff of Anastasiya 13.8 (11.5-14.5) % Plt Count 200 (130-400) K/uL MPV 9.3 (7.4-10.4) fL Immature Gran % (Auto) 0.1 % Neut % (Auto) 81.0 % Lymph % (Auto) 14.0 % [place] % (Auto) 4.6 % Eos % (Auto) 0.0 % Baso % (Auto) 0.3 % Immature Gran # (Auto) 0.01 (0.00-0.02) K/uL Neut # (Auto) 5.77 (1.4-6.5) K/uL Lymph # (Auto) 1.00 L (1.2-3.4) K/uL [place] # (Auto) 0.33 (0.11-0.59) K/uL Eos # (Auto) 0.00 (0-0.5) K/uL Baso # (Auto) 0.02 (0-0.2) K/uL PT 11.4 (9.0-12.0) Seconds INR 1.1 (0.9-1.1) APTT 23.0 (21.0-31.0) Seconds PTT Ratio 0.8 POC pH (7.35-7.45) POC pCO2 (35-46) mmHg POC pO2 (80-95) mmHg POC HCO3 (19-24) julianne/L POC Total CO2 (24-31) mmol/L POC Base Excess (-9-1.8) julianne/L POC Sodium (135-144) mmol/L Sodium 136 (136-145) mmol/L POC Potassium (3.3-5.0) mmol/L Potassium 4.3 (3.5-5.1) mmol/L Chloride 107 (98-107) mmol/L Carbon Dioxide 19 L (21-32) mmol/L Anion Gap 10.0 (3-11) BUN 49 H (7-18) mg/dl Creatinine 2.86 H (0.6-1.2) mg/dl Est Cr Clr Drug Dosing 17.2 ml/min Est GFR ( Amer) 17.2 Est GFR (Non-Af Amer) 14.8 BUN/Creatinine Ratio 17.1 (10-20) Glucose 149 H (70-99) mg/dl Lactate (0.4-2.0) mmol/L Calcium 9.7 (8.5-10.1) mg/dl Magnesium 1.5 L (1.8-2.4) mg/dl Total Bilirubin 0.6 (0.2-1) mg/dl AST 165 H (15-37) U/L ALT 68 (12-78) U/L Alkaline Phosphatase 166 H (45-117) U/L Total Creatine Kinase 6071 H (26-192) U/L CK-MB (CK-2) 14.1 H (0.5-3.6) ng/ml CK/CKMB % Calc 0.2 (0-3.0) Troponin I < 0.015 (0-0.045) ng/ml NT-Pro-B Natriuret Pep 390 (0-1800) pg/ml Total Protein 7.5 (6.4-8.2) gm/dl Albumin 3.7 (3.4-5.0) gm/dl Globulin 3.8 (2.5-4.0) gm/dl Albumin/Globulin Ratio 1.0 (0.9-2) Procalcitonin (0-0.5) ng/ml Random Cortisol mcg/dl Urine Color Urine Appearance (Clear) Urine pH (4.5-7.5) Ur Specific Margaret (1.000-1.030) Urine Protein (Negative) Urine Glucose (UA) (Negative) Urine Ketones (Negative) Urine Blood (Negative) Urine Nitrite (Negative) Urine Bilirubin (Negative) Urine Urobilinogen (Negative) Ur Leukocyte Esterase (Negative) Adenovirus (PCR) (NotDetected) B. pertussis DNA (PCR) (NotDetected) B.parapertussis DNA PCR (NotDetected) C. pneumoniae DNA (PCR) (NotDetected) Coronavirus OC43 (PCR) (NotDetected) Coronavirus HKU1 (PCR) (NotDetected) Coronavirus 229E (PCR) (NotDetected) Coronavirus NL63 (PCR) (NotDetected) Human Metapneumovir PCR (NotDetected) Influenza Type A (PCR) (Neg) Influenza Type B (PCR) (Neg) M. pneumoniae (PCR) (NotDetected) Parainfluenza 1 (PCR) (NotDetected) Parainfluenza 2 (PCR) (NotDetected) Parainfluenza 3 (PCR) (NotDetected) Parainfluenza 4 (PCR) (NotDetected) RSV (PCR) (NotDetected) Entero/Rhino (PCR) (NotDetected) 01/20/20 01/20/20 01/20/20 Range/Units 00:48 00:48 00:48 WBC (4.8-10.8) K/uL RBC (4.2-5.4) M/uL Hgb (12.0-16.0) g/dL POC Hgb (12.0-16.0) g/dl Hct (37-47) % POC Hct (37-47) % MCV (80-100) fL MCH (25-34) pg MCHC (32-36) g/dL RDW Std Deviation (36.4-46.3) fL RDW Coeff of Anastasiya (11.5-14.5) % Plt Count (130-400) K/uL MPV (7.4-10.4) fL Immature Gran % (Auto) % Neut % (Auto) % Lymph % (Auto) % [place] % (Auto) % Eos % (Auto) % Baso % (Auto) % Immature Gran # (Auto) (0.00-0.02) K/uL Neut # (Auto) (1.4-6.5) K/uL Lymph # (Auto) (1.2-3.4) K/uL [place] # (Auto) (0.11-0.59) K/uL Eos # (Auto) (0-0.5) K/uL Baso # (Auto) (0-0.2) K/uL PT (9.0-12.0) Seconds INR (0.9-1.1) APTT (21.0-31.0) Seconds PTT Ratio POC pH (7.35-7.45) POC pCO2 (35-46) mmHg POC pO2 (80-95) mmHg POC HCO3 (19-24) julianne/L POC Total CO2 (24-31) mmol/L POC Base Excess (-9-1.8) julianne/L POC Sodium (135-144) mmol/L Sodium (136-145) mmol/L POC Potassium (3.3-5.0) mmol/L Potassium (3.5-5.1) mmol/L Chloride (98-107) mmol/L Carbon Dioxide (21-32) mmol/L Anion Gap (3-11) BUN (7-18) mg/dl Creatinine (0.6-1.2) mg/dl Est Cr Clr Drug Dosing ml/min Est GFR ( Amer) Est GFR (Non-Af Amer) BUN/Creatinine Ratio (10-20) Glucose (70-99) mg/dl Lactate 2.6 H* (0.4-2.0) mmol/L Calcium (8.5-10.1) mg/dl Magnesium (1.8-2.4) mg/dl Total Bilirubin (0.2-1) mg/dl AST (15-37) U/L ALT (12-78) U/L Alkaline Phosphatase (45-117) U/L Total Creatine Kinase (26-192) U/L CK-MB (CK-2) (0.5-3.6) ng/ml CK/CKMB % Calc (0-3.0) Troponin I (0-0.045) ng/ml NT-Pro-B Natriuret Pep (0-1800) pg/ml Total Protein (6.4-8.2) gm/dl Albumin (3.4-5.0) gm/dl Globulin (2.5-4.0) gm/dl Albumin/Globulin Ratio (0.9-2) Procalcitonin 1.50 H (0-0.5) ng/ml Random Cortisol 73.09 mcg/dl Urine Color Urine Appearance (Clear) Urine pH (4.5-7.5) Ur Specific Margaret (1.000-1.030) Urine Protein (Negative) Urine Glucose (UA) (Negative) Urine Ketones (Negative) Urine Blood (Negative) Urine Nitrite (Negative) Urine Bilirubin (Negative) Urine Urobilinogen (Negative) Ur Leukocyte Esterase (Negative) Adenovirus (PCR) (NotDetected) B. pertussis DNA (PCR) (NotDetected) B.parapertussis DNA PCR (NotDetected) C. pneumoniae DNA (PCR) (NotDetected) Coronavirus OC43 (PCR) (NotDetected) Coronavirus HKU1 (PCR) (NotDetected) Coronavirus 229E (PCR) (NotDetected) Coronavirus NL63 (PCR) (NotDetected) Human Metapneumovir PCR (NotDetected) Influenza Type A (PCR) (Neg) Influenza Type B (PCR) (Neg) M. pneumoniae (PCR) (NotDetected) Parainfluenza 1 (PCR) (NotDetected) Parainfluenza 2 (PCR) (NotDetected) Parainfluenza 3 (PCR) (NotDetected) Parainfluenza 4 (PCR) (NotDetected) RSV (PCR) (NotDetected) Entero/Rhino (PCR) (NotDetected) 01/20/20 01/20/20 01/20/20 Range/Units 00:55 00:55 02:47 WBC (4.8-10.8) K/uL RBC (4.2-5.4) M/uL Hgb (12.0-16.0) g/dL POC Hgb (12.0-16.0) g/dl Hct (37-47) % POC Hct (37-47) % MCV (80-100) fL MCH (25-34) pg MCHC (32-36) g/dL RDW Std Deviation (36.4-46.3) fL RDW Coeff of Anastasiya (11.5-14.5) % Plt Count (130-400) K/uL MPV (7.4-10.4) fL Immature Gran % (Auto) % Neut % (Auto) % Lymph % (Auto) % [place] % (Auto) % Eos % (Auto) % Baso % (Auto) % Immature Gran # (Auto) (0.00-0.02) K/uL Neut # (Auto) (1.4-6.5) K/uL Lymph # (Auto) (1.2-3.4) K/uL [place] # (Auto) (0.11-0.59) K/uL Eos # (Auto) (0-0.5) K/uL Baso # (Auto) (0-0.2) K/uL PT (9.0-12.0) Seconds INR (0.9-1.1) APTT (21.0-31.0) Seconds PTT Ratio POC pH (7.35-7.45) POC pCO2 (35-46) mmHg POC pO2 (80-95) mmHg POC HCO3 (19-24) julianne/L POC Total CO2 (24-31) mmol/L POC Base Excess (-9-1.8) julianne/L POC Sodium (135-144) mmol/L Sodium (136-145) mmol/L POC Potassium (3.3-5.0) mmol/L Potassium (3.5-5.1) mmol/L Chloride (98-107) mmol/L Carbon Dioxide (21-32) mmol/L Anion Gap (3-11) BUN (7-18) mg/dl Creatinine (0.6-1.2) mg/dl Est Cr Clr Drug Dosing ml/min Est GFR ( Amer) Est GFR (Non-Af Amer) BUN/Creatinine Ratio (10-20) Glucose (70-99) mg/dl Lactate 2.0 (0.4-2.0) mmol/L Calcium (8.5-10.1) mg/dl Magnesium (1.8-2.4) mg/dl Total Bilirubin (0.2-1) mg/dl AST (15-37) U/L ALT (12-78) U/L Alkaline Phosphatase (45-117) U/L Total Creatine Kinase (26-192) U/L CK-MB (CK-2) (0.5-3.6) ng/ml CK/CKMB % Calc (0-3.0) Troponin I (0-0.045) ng/ml NT-Pro-B Natriuret Pep (0-1800) pg/ml Total Protein (6.4-8.2) gm/dl Albumin (3.4-5.0) gm/dl Globulin (2.5-4.0) gm/dl Albumin/Globulin Ratio (0.9-2) Procalcitonin (0-0.5) ng/ml Random Cortisol mcg/dl Urine Color Urine Appearance (Clear) Urine pH (4.5-7.5) Ur Specific Margaret (1.000-1.030) Urine Protein (Negative) Urine Glucose (UA) (Negative) Urine Ketones (Negative) Urine Blood (Negative) Urine Nitrite (Negative) Urine Bilirubin (Negative) Urine Urobilinogen (Negative) Ur Leukocyte Esterase (Negative) Adenovirus (PCR) Not Detected (NotDetected) B. pertussis DNA (PCR) Not Detected (NotDetected) B.parapertussis DNA PCR Not Detected (NotDetected) C. pneumoniae DNA (PCR) Not Detected (NotDetected) Coronavirus OC43 (PCR) Not Detected (NotDetected) Coronavirus HKU1 (PCR) Not Detected (NotDetected) Coronavirus 229E (PCR) Not Detected (NotDetected) Coronavirus NL63 (PCR) Not Detected (NotDetected) Human Metapneumovir PCR Not Detected (NotDetected) Influenza Type A (PCR) Neg for Influ A Not Detected (Neg) Influenza Type B (PCR) Neg for Influ B Not Detected (Neg) M. pneumoniae (PCR) Not Detected (NotDetected) Parainfluenza 1 (PCR) Not Detected (NotDetected) Parainfluenza 2 (PCR) Not Detected (NotDetected) Parainfluenza 3 (PCR) Not Detected (NotDetected) Parainfluenza 4 (PCR) Not Detected (NotDetected) RSV (PCR) Not Detected (NotDetected) Entero/Rhino (PCR) Not Detected (NotDetected) 01/20/20 01/20/20 Range/Units 03:30 03:40 WBC (4.8-10.8) K/uL RBC (4.2-5.4) M/uL Hgb (12.0-16.0) g/dL POC Hgb 8.8 L (12.0-16.0) g/dl Hct (37-47) % POC Hct 26 L (37-47) % MCV (80-100) fL MCH (25-34) pg MCHC (32-36) g/dL RDW Std Deviation (36.4-46.3) fL RDW Coeff of Anastasiya (11.5-14.5) % Plt Count (130-400) K/uL MPV (7.4-10.4) fL Immature Gran % (Auto) % Neut % (Auto) % Lymph % (Auto) % [place] % (Auto) % Eos % (Auto) % Baso % (Auto) % Immature Gran # (Auto) (0.00-0.02) K/uL Neut # (Auto) (1.4-6.5) K/uL Lymph # (Auto) (1.2-3.4) K/uL [place] # (Auto) (0.11-0.59) K/uL Eos # (Auto) (0-0.5) K/uL Baso # (Auto) (0-0.2) K/uL PT (9.0-12.0) Seconds INR (0.9-1.1) APTT (21.0-31.0) Seconds PTT Ratio POC pH 7.27 L (7.35-7.45) POC pCO2 37 (35-46) mmHg POC pO2 72 L (80-95) mmHg POC HCO3 17 L (19-24) julianne/L POC Total CO2 18 L (24-31) mmol/L POC Base Excess -10.0 L (-9-1.8) julianne/L POC Sodium 139 (135-144) mmol/L Sodium (136-145) mmol/L POC Potassium 3.7 (3.3-5.0) mmol/L Potassium (3.5-5.1) mmol/L Chloride (98-107) mmol/L Carbon Dioxide (21-32) mmol/L Anion Gap (3-11) BUN (7-18) mg/dl Creatinine (0.6-1.2) mg/dl Est Cr Clr Drug Dosing ml/min Est GFR ( Amer) Est GFR (Non-Af Amer) BUN/Creatinine Ratio (10-20) Glucose (70-99) mg/dl Lactate (0.4-2.0) mmol/L Calcium (8.5-10.1) mg/dl Magnesium (1.8-2.4) mg/dl Total Bilirubin (0.2-1) mg/dl AST (15-37) U/L ALT (12-78) U/L Alkaline Phosphatase (45-117) U/L Total Creatine Kinase (26-192) U/L CK-MB (CK-2) (0.5-3.6) ng/ml CK/CKMB % Calc (0-3.0) Troponin I (0-0.045) ng/ml NT-Pro-B Natriuret Pep (0-1800) pg/ml Total Protein (6.4-8.2) gm/dl Albumin (3.4-5.0) gm/dl Globulin (2.5-4.0) gm/dl Albumin/Globulin Ratio (0.9-2) Procalcitonin (0-0.5) ng/ml Random Cortisol mcg/dl Urine Color Yellow Urine Appearance Cloudy A (Clear) Urine pH 5.0 (4.5-7.5) Ur Specific Margaret 1.019 (1.000-1.030) Urine Protein Negative (Negative) Urine Glucose (UA) Negative (Negative) Urine Ketones Negative (Negative) Urine Blood 2+ H (Negative) Urine Nitrite Negative (Negative) Urine Bilirubin Negative (Negative) Urine Urobilinogen Negative (Negative) Ur Leukocyte Esterase Negative (Negative) Adenovirus (PCR) (NotDetected) B. pertussis DNA (PCR) (NotDetected) B.parapertussis DNA PCR (NotDetected) C. pneumoniae DNA (PCR) (NotDetected) Coronavirus OC43 (PCR) (NotDetected) Coronavirus HKU1 (PCR) (NotDetected) Coronavirus 229E (PCR) (NotDetected) Coronavirus NL63 (PCR) (NotDetected) Human Metapneumovir PCR (NotDetected) Influenza Type A (PCR) (Neg) Influenza Type B (PCR) (Neg) M. pneumoniae (PCR) (NotDetected) Parainfluenza 1 (PCR) (NotDetected) Parainfluenza 2 (PCR) (NotDetected) Parainfluenza 3 (PCR) (NotDetected) Parainfluenza 4 (PCR) (NotDetected) RSV (PCR) (NotDetected) Entero/Rhino (PCR) (NotDetected) Diagnostic Findings CXR initially with some possible RLL airspace disease. Repeat CXR from 03:35 with progression of bilateral airspace disease ECG Additional Comments: ST with PACs Code Status & VTE Plan Code Status Conditional code VTE Prophylaxis Plan VTE Prophylaxis will be ordered: Yes PG Care Time/CCT Total # of Minutes Spent Total Time Spent with Patient: Total time spent is greater than 50% in coordination of care (as documented) at patient's floor/unit and/or counseling patient: Coding Level of Care Code 09310 Initial Inpt Care Lvl 3 Diagnoses Sepsis A41.9 Sepsis type: sepsis due to unspecified organism Sepsis acute organ dysfunction status: unspecified Hypertension I10 Dyslipidemia E78.5 Tachycardia R00.0 (1) Sepsis Sepsis type: sepsis due to unspecified organism Sepsis acute organ dysfunction status: unspecified Qualified Code(s): A41.9 - Sepsis, unspecified organism
[2020-01-20 05:29] LABS: Bacteria Urine Automated 1+ (Negative)
[2020-01-20 06:46] LABS: Hematocrit (blood only) 31.9 % (37-47); Hemoglobin 10.6 g/dL (12.0-16.0); Mean Corpuscular Hemoglobin 29.4 pg (25-34); Mean Corpuscular Hgb Conc 33.2 g/dL (32-36); Mean Corpuscular Volume 88.6 fL (80-100); Mean Platelet Volume 9.1 fL (7.4-10.4); Nucleated RBC # (auto) 0.07 K/uL (0-0); Nucleated RBC % (auto) 0.8 %; Platelet Count 212 K/uL (130-400); RDW Coefficient of Variation 13.9 % (11.5-14.5); White Blood Count 8.77 K/uL (4.8-10.8)
[2020-01-20 06:53] LABS: Base Excess ABG -5.9 mEq/L (-9-1.8); HCO3 ABG 18 mmol/L (19-24); Oxygen Saturation ABG 94.6 % (90-95); PCO2 ABG 30 mmHg (35-46); PO2 ABG 73 mmHg (80-95)
--- NOTE | 2020-01-20 06:54 | XRay Report ---
XR chest 1V portable CLINICAL HISTORY: 79 years-old Female presenting with SEPSIS. TECHNIQUE: Portable upright AP view of the chest was obtained. COMPARISON: None. FINDINGS: The patient is slightly [place] rotated. Atherosclerosis of the aortic arch. Cardiac silhouette mildly en larged. Minimal reticular and hazy opacities at the right lung base and minimally on the left. No lar ge effusion or pneumothorax. Degenerative changes of the thoracic spine. Degenerative changes of the glenohumeral joints. Upper abdomen normal. IMPRESSION: 1. Minimal reticular and hazy bibasilar opacities greater on the right. This could represent atelect asis/scarring, aspiration, or infectious infiltrates/pneumonia. ACT 112: Negative or not required by law. Electronically signed by: Mike Almonte M.D. 01/20/2020 6:52 AM
[2020-01-20 06:56] LABS: Allen Test Pos (Pos)
[2020-01-20] MEDS: HEPARIN SOD 5,000 UNIT/0.5 ML VIAL SQ SCH ×3 (06:57→21:11)
[2020-01-20 07:11] LABS: Basophils # (auto) 0.02 K/uL (0-0.2); Basophils % (auto) 0.2 %; Immature Granulocytes # (auto) 0.02 K/uL (0.00-0.02); Immature Granulocytes % (auto) 0.2 %; Lymphocytes # (auto) 0.78 K/uL (1.2-3.4); Lymphocytes % (auto) 8.9 %; Monocytes % (auto) 9.1 %; Neutrophils # (auto) 7.15 K/uL (1.4-6.5); Neutrophils % (auto) 81.6 %
[2020-01-20 07:13] LABS: D Dimer 4990 ug/L FEU (0-500)
[2020-01-20 07:17] LABS: BUN Creatinine Ratio 17.6 (10-20); Bilirubin Direct 0.3 mg/dl (0-0.2); Calcium 8.3 mg/dl (8.5-10.1); Creatinine Clr Calc Pharmacy 19.2 ml/min; Est GFR (Non-African American) 17.3; Potassium 3.7 mmol/L (3.5-5.1)
[2020-01-20 07:32] LABS: Bilirubin,Total 0.6 mg/dl (0.2-1); Thyroid Stimulating Hormone 0.408 uIu/ml (0.300-4.500); Total Protein 6.6 gm/dl (6.4-8.2)
[2020-01-20] MEDS: AZTREONAM 1,000 MG in DEXTROSE 5% 100 ML IV SCH ×2 (08:06→20:07)
--- NOTE | 2020-01-20 08:08 | XRay Report ---
XR chest 1V portable CLINICAL HISTORY: 79 years-old Female presenting with hypoxia, volume overload, flulike symptoms. TECHNIQUE: Portable upright AP view of the chest was obtained. COMPARISON: 01/20/2020 at 1:17 AM. FINDINGS: Atherosclerosis of the aortic arch. Cardiac silhouette enlarged. Interval increase in vascular promin ence. Interstitial prominence also increased. Increased bibasilar hazy opacities, which are now confl uent, right greater than left. No large effusion or pneumothorax. Degenerative changes of the thoraci c spine. Degenerative changes of the left glenohumeral joint. Upper abdomen normal. IMPRESSION: 1. Cardiomegaly with worsening volume overload and congestive change. 2. Interval worsening of bibasilar infiltrates, which could represent edema, aspiration, or multifoc al atypical pneumonia. Follow-up recommended. ACT 112: Negative or not required by law. Electronically signed by: Mike Almonte M.D. 01/20/2020 8:06 AM
[2020-01-20] MEDS ORDERED: AMIODARONE RATE CHANGE ONE (10:04)
--- NOTE | 2020-01-20 10:16 | Electrocardiogram Report ---
Test Reason : Blood Pressure : / mmHG Vent. Rate : 106 BPM Atrial Rate : 106 BPM P-R Int : 128 ms QRS Dur : 070 ms QT Int : 302 ms P-R-T Axes : 040 023 029 degrees QTc Int : 401 ms Sinus tachycardia Junctional ST depression, probably normal Borderline ECG No previous ECGs available Confirmed by Martin Titus ([id number]) on 01/20/2020 10:15:36 AM Referred By: REFERRED SELF Confirmed By:Martin Titus
--- NOTE | 2020-01-20 11:11 | Pharmacy Report ---
Pharmacy Abx Dose Short Note - Date of Service January 20, 2020 - Assessment & Plan Assessment/Plan 79 year old F started on Vancomycin empirically for possible sepsis secondary to pulmonary source. Given LD of 1750mg (20mg/kg) x1. No previous renal data to determine baseline renal function. Currently estimated 1/2 life is >24 hours. Ordered Random level with AM labs tomorrow to help assess dosing. MRSA swab negative. Pharmacy will continue to follow and will adjust dose/frequency as necessary. Thank you.
[2020-01-20] MEDS: ACETAMINOPHEN 325 MG TAB PO PRN (11:57)
[2020-01-20] MEDS ORDERED: METOPROLOL TARTRATE 1 MG/ML VIAL IV STA (23:55)
[2020-01-20] MEDS ORDERED: METOPROLOL TARTRATE 1 MG/ML VIAL IV ONE (23:58)
[2020-01-21] MEDS ORDERED: METOPROLOL TARTRATE 1 MG/ML VIAL IV STA ×4 (00:06→00:46)
[2020-01-21] MEDS ORDERED: SODIUM CHLORIDE 0.9% 1000ML 250 ML IV ONE ×2 (00:16→00:26)
[2020-01-21] MEDS: ACETAMINOPHEN 325 MG TAB PO PRN ×2 (00:32→18:07)
[2020-01-21] MEDS ORDERED: STAT IV Infusion **Titration per Protocol STA (00:52)
[2020-01-21] MEDS ORDERED: AMIODARONE IV BOLUS & DRIP IV STA (00:52)
[2020-01-21] MEDS ORDERED: 0.2 MICRON FILTER SET 1 EA IV ONE (00:52)
[2020-01-21] MEDS ORDERED: AMIODARONE / D5W 150 MG/100 ML BAG IV STA (00:52)
[2020-01-21 01:01] LABS: Basophils # (auto) 0.02 K/uL (0-0.2); Basophils % (auto) 0.4 %; Eosinophils # (auto) 0.05 K/uL (0-0.5); Hemoglobin 9.9 g/dL (12.0-16.0); Immature Granulocytes # (auto) 0.01 K/uL (0.00-0.02); Immature Granulocytes % (auto) 0.2 %; Lymphocytes # (auto) 1.01 K/uL (1.2-3.4); Lymphocytes % (auto) 19.2 %; Mean Corpuscular Hemoglobin 30.1 pg (25-34); Mean Corpuscular Hgb Conc 34.1 g/dL (32-36); Mean Corpuscular Volume 88.1 fL (80-100); Mean Platelet Volume 9.3 fL (7.4-10.4); Monocytes # (auto) 0.52 K/uL (0.11-0.59); Monocytes % (auto) 9.9 %; Neutrophils # (auto) 3.64 K/uL (1.4-6.5); Neutrophils % (auto) 69.3 %; Nucleated RBC # (auto) 0.38 K/uL (0-0); Nucleated RBC % (auto) 7.3 %; Platelet Count 155 K/uL (130-400); RDW Coefficient of Variation 14.1 % (11.5-14.5); RDW Standard Deviation 46.1 fL (36.4-46.3); Red Blood Count 3.29 M/uL (4.2-5.4); White Blood Count 5.25 K/uL (4.8-10.8)
[2020-01-21 01:20] LABS: Albumin Level 2.7 gm/dl (3.4-5.0); BUN Creatinine Ratio 20.9 (10-20); Calcium 8.5 mg/dl (8.5-10.1); Creatinine Clr Calc Pharmacy 21.8 ml/min; Est GFR (African American) 23.3; Est GFR (Non-African American) 20.1; Magnesium 1.7 mg/dl (1.8-2.4); Potassium 3.5 mmol/L (3.5-5.1)
[2020-01-21] MEDS ORDERED: POTASSIUM CHLORIDE 20 MEQ TABCR PO STA (01:20)
[2020-01-21] MEDS ORDERED: MAGNESIUM SULFATE / D5W 1 GM/100 ML BAG IV ONE (01:20)
[2020-01-21 01:26] LABS: Polychromasia 1+
[2020-01-21] MEDS: POTASSIUM CHLORIDE / WTR 10 MEQ/100 ML PLCT IV SCH ×2 (01:44→02:49)
--- NOTE | 2020-01-21 01:51 | Communication Note ---
Date of Service: January 21, 2020 Was approached by nursing staff and informed the patient had flipped into A. fib with a rapid rate into the 140s. Given the current state of pandemic and as we are continuing to actively rule out this patient for COVID-19 infection, I did assess the patient in the from the anteroom. Patient remained saturating well on room air. She appears asymptomatic. Blood pressure is tolerable in the 120s systolically. Patient responded well to IV metoprolol yesterday. She received escalating doses of IV metoprolol per my direction. I did treat the patient with small 250 mL boluses of normal saline as the patient has had little to no p.o. intake and little to no fluids and has appeared to diuresis a moderate amount. This coupled with her state of sinus rhythm for several hours throughout the day, question of the patient does have degree of hypovolemia. After 500 cc of normal saline with a total of 10 mg IV metoprolol, the patient did have a decline in her blood pressure into the low 80s with maps just above 60. At this point, I was not comfortable providing increasing doses of metoprolol as having seen yesterday morning, the patient did become significantly hypotensive requiring addition of levo fed. At this point, I did elect to place the patient on amiodarone for rate control as she maintained heart rates in the 120s to occasional 130s. While she remained relatively hemodynamically stable, the patient is likely experiencing diastolic failure with acute changes in her heart rate. Because of this, I did feel that it was prudent to rate control the patient is close to normal as possible. Patient did have improvement with amiodarone as well as electrolyte replacement. Patient has levo fed to use if necessary. Otherwise, the patient has done well and is now rate controlled with great oxygen saturations on room air. I have personally spent 42 minutes of critical care time in the direct management of this patient. This is a life/limb threatening event. This includes time spent evaluating patient, direct bedside care, chart review, placing orders, interpretation of diagnostic studies, discussion with consultants, patie nt, and family members, as well as other required patient management activities. This time is exclusive of all separately billable procedures, and teaching time and separate from and in addition to any other critical care service time. Coding Level of Care Code Critical Care 1st 30-74 mins Time Spent (min) 42
[2020-01-21 02:07] LABS: Bilirubin Direct 0.2 mg/dl (0-0.2); Bilirubin,Total 0.4 mg/dl (0.2-1); Phosphorus 2.6 mg/dl (2.5-4.9); Total Protein 6.3 gm/dl (6.4-8.2)
[2020-01-21] MEDS: AMIODARONE 450 MG in D5W 250ML IN *POLYOLEFIN BAG* 241 ML IV SCH ×2 (02:23→10:51)
[2020-01-21] MEDS: HEPARIN SOD 5,000 UNIT/0.5 ML VIAL SQ SCH ×2 (05:13→13:06)
[2020-01-21] MEDS ORDERED: AMIODARONE RATE CHANGE ONE (06:52)
[2020-01-21] MEDS: AZTREONAM 1,000 MG in DEXTROSE 5% 100 ML IV SCH ×2 (08:35→20:46)
--- NOTE | 2020-01-21 08:43 | XRay Report ---
XR chest 1V portable CLINICAL HISTORY: f/u COMPARISON STUDY: Chest radiograph January 20, 2020 3:35 AM. FINDINGS: Patient is rotated. Small right and trace left pleural effusions are noted. Bibasilar opaci ties persist. Interstitial thickening has slightly improved. Widening of the right paratracheal strip e is unchanged. This is likely due to vessels. There is mild cardiomegaly. 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 There is no pneumothorax. IMPRESSION: 1. Small right and trace left pleural effusions with bibasilar opacities that may reflect pneumonia o r atelectasis. Radiographic follow-up is recommended. 2. Mild improvement in pulmonary edema. ACT 112: Negative or not required by law. Electronically signed by: John Bishop M.D. 01/21/2020 8:41 AM
--- NOTE | 2020-01-21 09:58 | Electrocardiogram Report ---
Test Reason : Blood Pressure : / mmHG Vent. Rate : 118 BPM Atrial Rate : 118 BPM P-R Int : 154 ms QRS Dur : 070 ms QT Int : 274 ms P-R-T Axes : 083 025 044 degrees QTc Int : 384 ms Sinus tachycardia The first four beats may be a short run of atrial tachycardia Confirmed by Martin Titus ([id number]) on 01/21/2020 9:58:07 AM Referred By: REFERRED SELF Confirmed By:Martin Titus
[2020-01-21] MEDS ORDERED: DIGOXIN 250 MCG in SYRINGE 9 ML IV ONE ×2 (10:30→14:30)
--- NOTE | 2020-01-21 10:56 | Critical Care Progress Note ---
Date of Service January 21, 2020 Assessment & Plan (1) Admitted to intensive care unit: Reason Critically Ill: 79-year-old female with acute hypoxic respiratory failure with tachycardia respiratory distress and hypotension Reason Critically Ill: 79-year-old female with acute hypoxic respiratory failure with tachycardia and profound hypotension requiring chemical cardioversion and vasopressor support. Recommendations: NEURO - CAM ICU: NEGATIVE CARDIAC/VASCULAR - Hypotension now resolved. Atrial fibrillation with rapid ventricular response. On amiodarone. Cardiology consultation obtained. Defer additional management to them in the hospitalist service. Defer anticoagulation to hospitalist and cardiology RESPIRATORY - Hypoxemic respiratory failure: Now resolved. Incentive spirometry as tolerated GI/NUTRITION - Defer to hospitalist service. RENAL/LYTES - Serum creatinine slightly better today. Continue to follow closely - [place] in place - Strict I&Os. ENDO - Glycemic control per protocol HEME - Stable H&H. ID - Presumptive pneumonia. Blood cultures pending. No sputum culture obtained. White count was normal. Procalcitonin was elevated on presentation is now increased over 75. Currently on aztreonam. White count remains normal. LINES/IV ACCESS - PIVs x2 [place] catheter DVT PROPHYLAXIS - Heparin SCDs Discussed with the hospitalist service. The patient appears appropriately to transfer back to their service and out of the ICU. Will sign off at this point time. Feel free to contact us if we can be of additional assistance. (2) Pneumonia: (3) Hypoxia: Admission and Anticipated Discharge Date Admission Date: January 20, 2020 Subjective Patient developed A. fib with RVR. Initiated on amiodarone. Received a few doses of metoprolol and small IV fluid bolus. No significant progressive respiratory issues. Review of Systems Review of Systems: See Dr. Rubi's note Physical Exam Physical Exam: Deferred as we are conserving PPE. Please refer to exam by Dr. Rubi Results & Data Results & Data ([facility]) Vital Signs (Past 12 Hours) Vital Signs Temp Pulse Pulse Resp BP BP Pulse Ox 01/21/20 10:25 134 H 01/21/20 08:00 36.9 C 60 120 H 20 121/62 95 01/21/20 04:00 36.4 C L 60 27 H 105/57 L 94 01/21/20 03:45 59 L 24 94 01/21/20 03:30 57 L 23 93/45 L 94 01/21/20 03:15 62 22 93 01/21/20 03:00 68 32 H 98/49 L 95 01/21/20 02:45 68 21 94 01/21/20 02:30 62 17 93/48 L 94 01/21/20 02:15 62 21 94 01/21/20 02:01 65 22 95/46 L 93 01/21/20 02:00 64 24 93 01/21/20 01:52 69 25 H 132/66 93 01/21/20 01:45 78 31 H 93 01/21/20 01:35 75 27 H 90/43 L 91 01/21/20 01:30 69 25 H 87/48 L 90 01/21/20 01:29 74 24 96/52 L 91 01/21/20 01:25 91 H 25 H 99/50 L 91 01/21/20 01:20 104 H 26 H 90/59 L 91 01/21/20 01:16 112 H 26 H 93 01/21/20 01:14 123 H 25 H 99/63 L 92 01/21/20 01:00 104 H 23 94/66 L 92 01/21/20 00:56 115 H 01/21/20 00:55 120 H 01/21/20 00:54 116 H 24 92/66 L 93 01/21/20 00:50 115 H 27 H 95/56 L 93 01/21/20 00:45 126 H 28 H 92 01/21/20 00:43 115 H 24 110/61 93 01/21/20 00:40 113 H 23 101/59 L 93 01/21/20 00:30 113 H 22 101/64 92 01/21/20 00:26 125 H 01/21/20 00:25 133 H 01/21/20 00:23 114 H 24 99/68 L 93 01/21/20 00:18 134 H 29 H 95/71 L 93 01/21/20 00:15 120 H 26 H 93 01/21/20 00:11 37.7 C H 139 H 25 H 104/65 93 01/21/20 00:04 111 H 23 117/62 94 01/21/20 00:00 150 H 24 112/63 92 01/20/20 23:45 79 24 92 01/20/20 23:30 76 24 129/50 L 94 01/20/20 23:15 77 24 94 01/20/20 23:00 74 24 110/49 L 93 Laboratory Results 01/21/20 00:36 01/21/20 00:36 Diagnostic Findings Chest x-ray from today was independently reviewed. There is some hazy opacity atelectasis of the bilateral bases. Lung volumes are slightly low. Coding Level of Care Code 07638 Subseq Hosp Care Lvl 2 Diagnoses Admitted to intensive care unit Z78.9 Pneumonia J18.9 Hypoxia R09.02
--- NOTE | 2020-01-21 14:05 | Hospitalist Progress Note ---
Date of Service January 21, 2020 Assessment & Plan (1) Atrial fibrillation: new onset, difficult to control HR in the 160's at times blood pressure very sensitive to metoprolol IV, caused hypotension now on Amiodarone drip added Digoxin 250mcg IV x 2 doses today, plan for low dose PO tomorrow will start Eliquis 2.5mg BID for anticoagulation will get echo once she is out of COVID isolation to preserve PPE will consult cardiology once out of isolation, discussed with Dr. Lane today (2) Sepsis: due to right lower lobe pneumonia WBC normal, no fever, less cough, less dyspnea, no longer hypoxic continue Aztreonam due to long list of allergies blood cultures, urine culture with no growth keep on PCU due to atrial fibrillation (3) Pneumonia: infiltrate in right lower lobe felt to be bacterial infection, responding well to Aztreonam coughing up purulent sputum, less amount and less frequency breathing comfortably on room air COVID testing sent, still pending, want to remove precautions as soon as po ssible no clear risk factors for COVID (4) Fever: resolved, due to bacterial pneumonia resolved with treatment (5) Hypoxia: acute hypoxic respiratory failure, resolved with treatment breathing room air comfortably (6) Acute hypotension: due to dehydration, sepsis, likely atrial fibrillation with RVR was also driving some hypotension due to poor filling off of Levophed on 01/20 BP preserved (7) Chronic kidney disease: stage III or IV, unsure of baseline Cr has come down from 2.5 to 2.2 since admission eating and drinking well, no further IV fluids monitor UO dose medications appropriately (8) Hypertension: (9) Dyslipidemia: Admission and Anticipated Discharge Date Admission Date: January 20, 2020 Subjective patient had atrial fibrillation with RVR over night, she did not have any symptoms HR up into the 160's at times, given 2 separate 250mL boluses, little improvement BP was low, still on Levophed Bolused with Amiodarone and then drip started, some improvement in HR this morning then back into the 160's patient with no symptoms, no chest pain, no dyspnea, no palpitations she confirms no history of atrial fibrillation respiratory mcleod, her symptoms are improving, she is coughing up phlegm but less amounts, less frequent breathing much better, off of oxygen, no fever reviewed risk factors for COVID 19, she has been at home for three weeks, no exposure to known COVID case or person who traveled COVID results still pending, will check again this afternoon reviewed labs, WBC 5k, Hb 9.9, plts 155k, Cr down a little at 2.22, electrolytes stable discussed with Dr. Renner, now that she is off of Levophed he will sign off discussed with Dr. Lane over the phone, for her HR he suggested loading with Digoxin 250mcg twice today, check levels can start PO tomorrow morning she has been quite sensitive to metoprolol causing hypotension she is eating and drinking well, says she feels "great! I can whistle again" Review of Systems Review of Systems: All systems reviewed & are unremarkable except as noted in HPI & below Constitutional: + fatigue and + weakness; no fever, no chills and no sweats Respiratory: + cough, + dyspnea on exertion and + sputum production; no dyspnea, no hemoptysis and no wheezing Cardiovascular: no chest pain, no palpitations, no syncope and no edema Gastrointestinal: no abdominal pain, no nausea, no vomiting, no constipation and no diarrhea/loose stools Genitourinary: + problem reported ([place] in place) Physical Exam Constitutional: WD/WN, vitals as above Eyes: PERRL, conjunctivae normal, anicteric sclerae ENMT: external ear and nose normal, oropharynx normal Neck: trachea midline, no thyromegaly Respiratory: normal respiratory effort and + cough; no respiratory distress Auscultation: + crackles (right base); no rhonchi and no wheezes Cardiovascular: Rate/Rhythm: + tachycardic and + irregularly irregular Heart Sounds: normal S1 and normal S2; no murmur Extremities: normal capillary refill; no edema Gastrointestinal (Abdomen): normal bowel sounds, soft, nontender, no hepatosplenomegaly Musculoskeletal: Head/Neck/Chest: normocephalic and head atraumatic Extremities: + abnormal strength (weakness in legs); no cyanosis, no clubbing and no petechiae Skin: no rashes, warm and dry Neurologic: patellar DTR's 2+ bilat, sensation intact and PERRL, EOMI, accommodation nl, no face palsy, no dysarthria Psychiatric: A+Ox3, euthymic affect Lymphatic: no cervical or axillary lymphadenopathy Results & Data Results & Data ([facility]) Vital Signs (Past 12 Hours) Vital Signs Temp Pulse Pulse Resp BP BP Pulse Ox 01/21/20 12:00 37.5 C 112 H 25 H 107/45 L 93 01/21/20 10:25 134 H 01/21/20 10:00 36.8 C 138 H 20 106/39 L 95 01/21/20 08:00 36.9 C 60 120 H 20 121/62 95 01/21/20 04:00 36.4 C L 60 27 H 105/57 L 94 01/21/20 03:45 59 L 24 94 01/21/20 03:30 57 L 23 93/45 L 94 01/21/20 03:15 62 22 93 01/21/20 03:00 68 32 H 98/49 L 95 01/21/20 02:45 68 21 94 01/21/20 02:30 62 17 93/48 L 94 01/21/20 02:15 62 21 94 Laboratory Results Laboratory Results - last 24 hr 01/20/20 01/20/20 01/21/20 14:00 14:00 00:36 WBC 5.25 RBC 3.29 L Hgb 9.9 L Hct 29.0 L MCV 88.1 MCH 30.1 MCHC 34.1 RDW Std Deviation 46.1 RDW Coeff of Anastasiya 14.1 Plt Count 155 MPV 9.3 Immature Gran % (Auto) 0.2 Neut % (Auto) 69.3 Lymph % (Auto) 19.2 [place] % (Auto) 9.9 Eos % (Auto) 1.0 Baso % (Auto) 0.4 Immature Gran # (Auto) 0.01 Neut # (Auto) 3.64 Lymph # (Auto) 1.01 L [place] # (Auto) 0.52 Eos # (Auto) 0.05 Baso # (Auto) 0.02 Absolute Nucleated RBC 0.38 H Nucleated RBC % (auto) 7.3 Polychromasia 1+ Sodium Potassium Chloride Carbon Dioxide Anion Gap BUN Creatinine Est Cr Clr Drug Dosing Est GFR ( Amer) Est GFR (Non-Af Amer) BUN/Creatinine Ratio Glucose Calcium Phosphorus Magnesium Total Bilirubin Direct Bilirubin AST ALT Alkaline Phosphatase Total Creatine Kinase Total Protein Albumin Procalcitonin Ur Random Creatinine 96.2 Ur Random Sodium 43 01/21/20 01/21/20 00:36 00:36 WBC RBC Hgb Hct MCV MCH MCHC RDW Std Deviation RDW Coeff of Anastasiya Plt Count MPV Immature Gran % (Auto) Neut % (Auto) Lymph % (Auto) [place] % (Auto) Eos % (Auto) Baso % (Auto) Immature Gran # (Auto) Neut # (Auto) Lymph # (Auto) Oxford # (Auto) Eos # (Auto) Baso # (Auto) Absolute Nucleated RBC Nucleated RBC % (auto) Polychromasia Sodium 139 Potassium 3.5 Chloride 108 H Carbon Dioxide 21 Anion Gap 10.0 BUN 46 H Creatinine 2.22 H D Est Cr Clr Drug Dosing 21.8 Est GFR ( Amer) 23.3 Est GFR (Non-Af Amer) 20.1 BUN/Creatinine Ratio 20.9 H Glucose 100 H Calcium 8.5 Phosphorus 2.6 Magnesium 1.7 L Total Bilirubin 0.4 Direct Bilirubin 0.2 AST 137 H ALT 75 Alkaline Phosphatase 145 H Total Creatine Kinase 2984 H Total Protein 6.3 L Albumin 2.7 L Procalcitonin 75.11 H Ur Random Creatinine Ur Random Sodium Microbiology 01/20/20 03:30 Urine,Clean Catch Urine Culture - Preliminary No growth - Less than 1,000 colonies/mL, Final report to follow. 01/20/20 00:48 Blood Aerobic Blood Culture - Preliminary No growth in Aerobic bottle after 24 hours. 01/20/20 00:48 Blood Anaerobic Blood Culture - Preliminary No growth in Anaerobic bottle after 24 hours. 01/20/20 00:48 Blood Aerobic Blood Culture - Preliminary No growth in Aerobic bottle after 24 hours. 01/20/20 00:48 Blood Anaerobic Blood Culture - Preliminary No growth in Anaerobic bottle after 24 hours. Medications Administered Current Inpatient Medications Acetaminophen (Tylenol) 650 mg PO Q4H PRN PRN Reason: Fever Stop: 02/19/20 11:40 Last Admin: 01/21/20 00:32 Dose: 650 mg Documented by: Heparin Sodium (Porcine) (Heparin Sodium (Porcine)) 5,000 units SQ Q8 JANY Stop: 02/19/20 05:59 Last Admin: 01/21/20 13:06 Dose: 5,000 units Documented by: Norepinephrine Bitartrate 8 mg (/ Dextrose) 508 mls @ 0 mls/hr IV .Q0M JANY; Protocol Stop: 02/19/20 06:29 Last Titration: 01/21/20 07:45 Dose: 0 mcg/kg/min, 0 mls/hr Documented by: Aztreonam 1,000 mg/ Dextrose 110 mls @ 100 mls/hr IV Q12H [facility]; Protocol Stop: 01/22/20 08:59 Last Infusion: 01/21/20 09:41 Dose: Infused Documented by: Amiodarone HCl 450 mg/ (Dextrose) 250 mls @ 33.333 mls/hr IV .Q7H30M JANY; Protocol Stop: 02/20/20 01:01 Last Admin: 01/21/20 10:51 Dose: 0.5 mg/min, 16.7 mls/hr Documented by: Digoxin 250 mcg/ Syringe 10 mls @ 2 mls/min IV TODAY@1430 ONE Stop: 01/21/20 14:34 Miscellaneous (Icu Protocol For Hyperglycemia) 1 ea N/A PRN PRN; Protocol PRN Reason: Hyperglycemia Protocol Stop: 01/22/20 04:44 PG Care Time/CCT Total # of Minutes Spent Total Time Spent with Patient: Total time spent is greater than 50% in coordination of care (as documented) at patient's floor/unit and/or counseling patient: Coding Level of Care Code 09260 Subseq Hosp Care Lvl 3 Diagnoses Atrial fibrillation I48.91 Sepsis A41.9 Sepsis type: sepsis due to unspecified organism Sepsis acute organ dysfunction status: unspecified Pneumonia J18.9 Fever R50.9 Fever type: unspecified Hypoxia R09.02 Acute hypotension I95.9 Chronic kidney disease N18.9 Hypertension I10 Dyslipidemia E78.5 (1) Sepsis Sepsis type: sepsis due to unspecified organism Sepsis acute organ dysfunction status: unspecified Qualified Code(s): A41.9 - Sepsis, unspecified organism (2) Fever Fever type: unspecified Qualified Code(s): R50.9 - Fever, unspecified
[2020-01-21] MEDS: APIXABAN 2.5 MG TAB PO SCH (20:45)
[2020-01-21] MEDS: ACETAMINOPHEN 500 MG TAB PO SCH (20:46)
[2020-01-22] MEDS: AMIODARONE 450 MG in D5W 250ML IN *POLYOLEFIN BAG* 241 ML IV SCH ×4 (01:02→15:17)
[2020-01-22] MEDS: NOREPINEPHRINE BIT INJ 8 MG in DEXTROSE 5% 500 ML IV SCH ×7 (07:02→07:50)
[2020-01-22 07:13] LABS: Creatinine Clr Calc Pharmacy 28.8 ml/min; Est GFR (African American) 33.4; Est GFR (Non-African American) 28.8
[2020-01-22] MEDS: APIXABAN 2.5 MG TAB PO SCH ×2 (07:38→20:56)
[2020-01-22] MEDS: ACETAMINOPHEN 325 MG TAB PO PRN (09:13)
[2020-01-22] MEDS: AZTREONAM 1,000 MG in DEXTROSE 5% 100 ML IV SCH (09:31)
--- NOTE | 2020-01-22 10:56 | Cardiology Consultation ---
Date of Consultation January 22, 2020 Assessment & Plan (1) Atrial fibrillation: She continues to have brief episodes of paroxysmal atrial fibrillation, the rate is somewhat variable but overall reasonably well controlled. She does not seem to be aware of whether she is in it or not, including on admission when the rate was very fast. It is possible it is related to her acute presentation but is also possible that she has atrial fibrillation. We will need to do some type of monitoring to confirm that what she has improved. In the meantime we will need to treat it with rate control and anticoagulation. I agree with the current treatment of intravenous amiodarone, it seems to be working relatively well at the moment. (2) Anticoagulant long-term use: I agree with the use of anticoagulation, I agree with the use of Eliquis and I would dose it based on her kidney function (based on her weight she would be on the higher dose, based on her age on the lower dose, if her creatinine is over 1.5 we should use a lower dose, if it improves to less than 1.5 should she should be on the higher dose. Historically, going back as far as 2016, her creatinine is right around 1.5 so she may end up staying on the lower dose. Once we determine whether she has asymptomatic atrial fibrillation ongoing basis we can determine whether to continue it over the long run. History of Present Illness Attending Physician: Meghana Jennings MD History of Present Illness This is an 79-year-old woman who presents with sepsis, she presented hypotensive and tachycardic and in hypoxic respiratory failure for which she required oxygen. She was also observed to go in and out of atrial fibrillation which initially was very rapid, 160 bpm at times. Metoprolol caused hypotension and she was started on amiodarone. She was also started on Eliquis at a reduced dose due to age and kidney function. I did not go into examine her due to the COVID-19 isolation, however I was able to talk to her on the intercom. She has no knowledge of having atrial fibrillation in the past, or any other cardiac abnormality other than a heart murmur when she was young. Here she is not aware of the atrial fibrillation, she knows she has it because she has been told but she does not feel it in terms of palpitations or other symptoms. Allergies Allergy/AdvReac Type Severity Reaction Status Date / Time Penicillins Allergy Unknown Verified 01/22/20 08:56 Sulfa (Sulfonamide Allergy Unknown Verified 01/22/20 08:56 Antibiotics) amoxicillin AdvReac Hypotension Verified 01/22/20 07:55 Home Medications Home Medications Medication Instructions Recorded Confirmed Type Aspirin Enteric Coated (Ecotrin Or 81 mg PO DAILY #0 tab 04/07/12 History Generic) CALCIUM CARBONATE-VITAMIN D W/ 1 tab PO DAILY #0 tab 04/07/12 History (CALTRATE 600 PLUS) LISINOPRIL (ZESTRIL) 20 mg PO DAILY #0 tab 04/07/12 History SIMVASTATIN (ZOCOR) 20 mg PO QPM #0 tab 04/07/12 History Triamterene/Hctz (Maxzide 1 tab PO DAILY #0 tab 04/07/12 History 75MG/50MG) albuterol sulfate [Ventolin HFA] 1 - 2 puff INHALATION DAILY PRN 01/20/20 01/20/20 History amlodipine 2.5 mg PO DAILY 01/20/20 01/20/20 History lisinopril 20 mg PO DAILY 01/20/20 01/20/20 History metoprolol tartrate 50 mg PO BID 01/20/20 01/20/20 History simvastatin 20 mg PO HS 01/20/20 01/20/20 History triamterene-hydrochlorothiazid 1 tab PO DAILY 01/20/20 01/20/20 History Patient History Medical History Dyslipidemia Hypertension Social History Preferred Language: [place] Communication Ability: Effective Beliefs That Will Affect Care: None Current Living Situation: Spouse Feels Safe at Home: Yes Smoking Status: Unknown if ever smoked Hx Alcohol Use: No Hx Substance Use: No Review of Systems Review of Systems: All systems reviewed & are unremarkable except as noted in HPI & below Physical Exam Physical Exam: Exam was not performed due to the presence of COVID-19 isolation Results & Data ([place]) Vital Signs (Past 12 Hours) Vital Signs Temp Pulse Pulse Pulse Resp BP BP 01/22/20 09:00 37.7 C H 88 18 125/52 L 01/22/20 08:00 37.4 C 84 93 H 20 135/62 01/22/20 07:00 37.4 C 82 18 136/67 01/22/20 05:31 68 20 101/53 L 01/22/20 05:30 63 19 01/22/20 05:15 76 26 H 01/22/20 05:00 86 25 H 114/61 01/22/20 04:45 77 20 01/22/20 04:30 68 20 126/59 L 01/22/20 04:15 75 18 01/22/20 04:00 82 26 H 110/57 L 01/22/20 03:45 74 17 01/22/20 03:30 86 16 118/59 L 01/22/20 03:15 73 24 01/22/20 03:00 64 20 115/54 L 01/22/20 02:45 91 H 23 01/22/20 02:30 90 21 108/53 L 01/22/20 02:15 65 21 01/22/20 02:00 63 18 104/60 01/22/20 01:45 82 27 H 01/22/20 01:30 82 21 121/53 L 01/22/20 01:15 73 26 H 01/22/20 01:00 77 25 H 112/56 L 01/22/20 00:45 79 21 01/22/20 00:30 89 28 H 105/54 L 01/22/20 00:15 77 23 01/22/20 00:00 84 24 112/54 L 01/21/20 23:45 82 25 H 01/21/20 23:30 77 19 102/49 L 01/21/20 23:15 81 24 01/21/20 23:00 68 21 104/47 L Pulse Ox Pulse Ox 01/22/20 09:00 95 01/22/20 08:00 94 01/22/20 07:00 95 01/22/20 05:31 97 01/22/20 05:30 96 01/22/20 05:15 98 01/22/20 05:00 95 01/22/20 04:45 95 01/22/20 04:30 95 01/22/20 04:15 94 01/22/20 04:00 96 95 01/22/20 03:45 96 01/22/20 03:30 95 01/22/20 03:15 96 01/22/20 03:00 97 01/22/20 02:45 94 01/22/20 02:30 96 01/22/20 02:15 94 01/22/20 02:00 96 01/22/20 01:45 93 01/22/20 01:30 93 01/22/20 01:15 93 01/22/20 01:00 95 01/22/20 00:45 96 01/22/20 00:30 95 01/22/20 00:15 94 01/22/20 00:00 95 01/21/20 23:45 94 01/21/20 23:30 95 01/21/20 23:15 94 01/21/20 23:00 92 Laboratory Results Comprehensive Metabolic Panel 01/22/20 Range/Units 06:32 Creatinine 1.65 H D (0.6-1.2) mg/dl Intake and Output 01/21/20 01/22/20 01/22/20 22:59 06:59 14:59 Intake Total 150 / 1166.745 445.670 / 1166.745 110 / 110 Output Total 1150 / 3450 1150 / 3450 Balance -1000 / -2283.255 -704.330 / -2283.255 110 / 110 Intake: IV 445.670 / 626.745 110 / 110 Cordarone 450 mg In Dextrose 5% 335.670 / 400.243 Polyolefin Container 241 ml @ 1 MG/MIN 33.333 mls/hr IV . Q7H30M JANY Rx#:[id number] Azactam 1,000 mg In D5 100 ml @ 110 / 220 110 / 110 100 mls/hr IV Q12H JANY Rx#: [id number] Levophed Inj 8 mg In D5w 500 ml 0 / 0 @ 0 MCG/KG/MIN IV .Q0M JANY Rx# :[id number] Oral 150 / 540 Output: Urine Amount (Catheter) 1150 / 3450 1150 / 3450 [place]/Indwelling 1150 / 3450 1150 / 3450 Other: Weight 81.7 kg Diagnostic Findings Her presenting electrocardiogram on January 20, 2020 at a little after midnight showed sinus tachycardia at 106 bpm, she did have some upsloping ST depression. A repeat electrocardiogram done just a few minutes later shows predominantly sinus rhythm although the initial part of the tracing shows a rapid atrial fibrillation with a heart rate of over 200 bpm for [address] depression is present. An echocardiogram will be performed once her COVID-19 status is defined. PG Care Time/CCT Total # of Minutes Spent Total Time Spent with Patient: Total time spent is greater than 50% in coordination of care (as documented) at patient's floor/unit and/or counseling patient: Coding Level of Care Code 86627 Initial Inpt Care Lvl 2 Diagnoses Atrial fibrillation I48.91 Anticoagulant long-term use Z79.01
--- NOTE | 2020-01-22 11:34 | Hospitalist Progress Note ---
Date of Service January 22, 2020 Assessment & Plan (1) Atrial fibrillation: -new onset, difficult to control HR in the 160's at times blood pressure very sensitive to metoprolol IV, caused hypotension now on Amiodarone drip and loaded with digoxin--> much improved-continue both for now -started Eliquis 2.5mg BID for anticoagulation -will consider echo once she is out of COVID isolation to preserve PPE -appreciate Cardiology consult -continue tele monitoring (2) Sepsis: due to right lower lobe pneumonia WBC normal, no fever, less cough, less dyspnea, no longer hypoxic Overall much improved Received Vanco x 2 doses and Azactam since admission MRSA swab negative and Vanco dcd -convert to IV cefepime for coverage of Pseudomaonas, Gram positive, and gram neg PNA blood cultures, urine culture with no growth keep on PCU due to atrial fibrillation (3) Pneumonia: Infiltrate in right lower lobe felt to be bacterial infection given Procal up to 75, responding well to Aztreonam and vanco--> convert to IV Cefepime as above coughing up less purulent sputum breathing comfortably on room air COVID testing sent and now returned as NEGATIVE remove precautions no clear risk factors for COVID -added albuterol INH prn (4) Hypertension: BPs were low, now improved with rate control -holding home Dyazide, lisinopril, and metoprolol (5) Dyslipidemia: holding home statin for rhabdo (6) Fever: resolved, due to bacterial pneumonia resolved with treatment (7) Hypoxia: acute hypoxic respiratory failure, resolved with treatment breathing room air comfortably (8) Acute hypotension: due to dehydration, sepsis, likely atrial fibrillation with RVR was also driving some hypotension due to poor filling off of Levophed on 01/20 BP now much improved (9) Chronic kidney disease: stage III Cr has come down from 2.5 to 2.2 now down to 1.65 since admission which is her baseline eating and drinking well, no further IV fluids monitor UO dose medications appropriately (10) Rhabdomyolysis: CK 6000 on admission and now trending downward, secondary to acute infection? Follow CK in AM po hydration (11) DVT prophylaxis: Eliquis Dispo-continued stay-downgrade from ICU status to PCU status Admission and Anticipated Discharge Date Admission Date: January 20, 2020 Subjective Pt feeling so much better today. Reports she has no further SOB, very minimal cough, no longer coughing up brown sputum. She continues to go in and out of Afib/flutter with rates to the 150s briefly but overall much improved rates and amount of burden of Afib since yesterday. Denies chest pain, nausea, no abd pain. Discussed her case with Cardiology Review of Systems Review of Systems: All systems reviewed & are unremarkable except as noted in HPI & below Physical Exam Constitutional: WD/WN, vitals as above Eyes: + anicteric sclerae ENMT: external ear and nose normal, oropharynx normal Neck: trachea midline, no thyromegaly Respiratory: Auscultation: + diminished lung sounds (at right lower lung field); no crackles and no wheezes Cardiovascular: Rate/Rhythm: regular rate and + irregularly irregular Heart Sounds: no murmur Extremities: no edema Chest (Breasts): Chest: normal inspection of chest Gastrointestinal (Abdomen): normal bowel sounds, soft, nontender, no hepatosplenomegaly Musculoskeletal: Extremities: extremities normal to inspection; no cyanosis and no clubbing Skin: no rashes, warm and dry Neurologic: moves all extremities and awake; no focal motor deficits Psychiatric: A+Ox3, euthymic affect Lymphatic: no lymphedema Results & Data Results & Data ([facility]) Vital Signs (Past 12 Hours) Vital Signs Temp Pulse Pulse Pulse Resp BP BP 01/22/20 09:00 37.7 C H 88 18 125/52 L 01/22/20 08:00 37.4 C 84 93 H 20 135/62 01/22/20 07:00 37.4 C 82 18 136/67 01/22/20 05:31 68 20 101/53 L 01/22/20 05:30 63 19 01/22/20 05:15 76 26 H 01/22/20 05:00 86 25 H 114/61 01/22/20 04:45 77 20 01/22/20 04:30 68 20 126/59 L 01/22/20 04:15 75 18 01/22/20 04:00 82 26 H 110/57 L 01/22/20 03:45 74 17 01/22/20 03:30 86 16 118/59 L 01/22/20 03:15 73 24 01/22/20 03:00 64 20 115/54 L 04/06/20 02:45 91 H 23 01/22/20 02:30 90 21 108/53 L 01/22/20 02:15 65 21 01/22/20 02:00 63 18 104/60 01/22/20 01:45 82 27 H 01/22/20 01:30 82 21 121/53 L 01/22/20 01:15 73 26 H 01/22/20 01:00 77 25 H 112/56 L 01/22/20 00:45 79 21 01/22/20 00:30 89 28 H 105/54 L 01/22/20 00:15 77 23 01/22/20 00:00 84 24 112/54 L 01/21/20 23:45 82 25 H Pulse Ox Pulse Ox 01/22/20 09:00 95 01/22/20 08:00 94 01/22/20 07:00 95 01/22/20 05:31 97 01/22/20 05:30 96 01/22/20 05:15 98 01/22/20 05:00 95 01/22/20 04:45 95 01/22/20 04:30 95 01/22/20 04:15 94 01/22/20 04:00 96 95 01/22/20 03:45 96 01/22/20 03:30 95 01/22/20 03:15 96 01/22/20 03:00 97 01/22/20 02:45 94 01/22/20 02:30 96 01/22/20 02:15 94 01/22/20 02:00 96 01/22/20 01:45 93 01/22/20 01:30 93 01/22/20 01:15 93 01/22/20 01:00 95 01/22/20 00:45 96 01/22/20 00:30 95 01/22/20 00:15 94 01/22/20 00:00 95 01/21/20 23:45 94 Laboratory Results 01/22/20 01/20/20 Range/Units 06:32 00:55 Creatinine 1.65 H D (0.6-1.2) mg/dl Est Cr Clr Drug Dosing 28.8 ml/min Est GFR ( Amer) 33.4 Est GFR (Non-Af Amer) 28.8 Coronavirus (PCR) NOT DETECTED (NOT DETECTED) COVID-19 Pt Symptomatic YES COVID-19 Source NASOPHARYNGEAL SARS Virus RNA (PCR) NEGATIVE (NEGATIVE) SARS-CoV-2 RNA (RT-PCR) NEGATIVE (NEGATIVE) PG Care Time/CCT Total # of Minutes Spent Total Time Spent with Patient: Total time spent is greater than 50% in coordination of care (as documented) at patient's floor/unit and/or counseling patient: Coding Level of Care Code 55824 Subseq Hosp Care Lvl 3 Diagnoses Atrial fibrillation I48.91 Sepsis A41.9 Sepsis acute organ dysfunction status: unspecified Sepsis type: sepsis due to unspecified organism Pneumonia J18.9 Hypertension I10 Dyslipidemia E78.5 Fever R50.9 Fever type: unspecified Hypoxia R09.02 Acute hypotension I95.9 Chronic kidney disease N18.9 Rhabdomyolysis M62.82 DVT prophylaxis Z29.9 (1) Fever Fever type: unspecified Qualified Code(s): R50.9 - Fever, unspecified (2) Sepsis Sepsis acute organ dysfunction status: unspecified Sepsis type: sepsis due to unspecified organism Qualified Code(s): A41.9 - Sepsis, unspecified organism
[2020-01-22] MEDS ORDERED: ALBUTEROL HFA 8 GM INHALER INH PRN (12:50)
[2020-01-22] MEDS: DOCUSATE SODIUM 100 MG CAP PO SCH ×2 (13:27→20:56)
[2020-01-22] MEDS ORDERED: CEFDINIR 300 MG CAP PO SCH (13:30)
[2020-01-22] MEDS ORDERED: CEFEPIME 2,000 MG in SYRINGE 7.5 ML IV SCH (14:00)
[2020-01-22] MEDS: DIGOXIN 0.125 MG TAB PO SCH (15:00)
[2020-01-22 15:14] LABS: COVID-19 Patient Symptomatic? YES; PAN-SARS Coronavirus RNA NEGATIVE (NEGATIVE); SARS CoV2 RNA (COVID-19) NEGATIVE (NEGATIVE); SARS Coronavirus RNA Source NASOPHARYNGEAL
[2020-01-22] MEDS: ACETAMINOPHEN 500 MG TAB PO SCH (20:56)
[2020-01-23] MEDS: AMIODARONE 450 MG in D5W 250ML IN *POLYOLEFIN BAG* 241 ML IV SCH ×2 (06:26→07:41)
[2020-01-23 06:28] LABS: Basophils # (auto) 0.03 K/uL (0-0.2); Basophils % (auto) 0.5 %; Eosinophils % (auto) 3.2 %; Hematocrit (blood only) 30.2 % (37-47); Immature Granulocytes # (auto) 0.06 K/uL (0.00-0.02); Lymphocytes # (auto) 1.18 K/uL (1.2-3.4); Lymphocytes % (auto) 18.8 %; Mean Corpuscular Hemoglobin 29.3 pg (25-34); Mean Corpuscular Hgb Conc 33.1 g/dL (32-36); Mean Corpuscular Volume 88.6 fL (80-100); Monocytes # (auto) 0.45 K/uL (0.11-0.59); Monocytes % (auto) 7.2 %; Neutrophils # (auto) 4.36 K/uL (1.4-6.5); Neutrophils % (auto) 69.3 %; Platelet Count 208 K/uL (130-400); RDW Coefficient of Variation 14.4 % (11.5-14.5); RDW Standard Deviation 46.8 fL (36.4-46.3); Red Blood Count 3.41 M/uL (4.2-5.4); White Blood Count 6.28 K/uL (4.8-10.8)
[2020-01-23 07:01] LABS: Albumin Level 2.7 gm/dl (3.4-5.0); BUN Creatinine Ratio 22.4 (10-20); Calcium 8.9 mg/dl (8.5-10.1); Est GFR (African American) 43.3; Est GFR (Non-African American) 37.4; Magnesium 1.7 mg/dl (1.8-2.4); Potassium 3.4 mmol/L (3.5-5.1)
[2020-01-23 07:04] LABS: Albumin Globulin Ratio 0.7 (0.9-2); Bilirubin,Total 0.4 mg/dl (0.2-1); Globulin 4.1 gm/dl (2.5-4.0); Total Protein 6.8 gm/dl (6.4-8.2)
[2020-01-23] MEDS: APIXABAN 2.5 MG TAB PO SCH (07:37)
[2020-01-23] MEDS: DOCUSATE SODIUM 100 MG CAP PO SCH ×2 (07:37→20:06)
--- NOTE | 2020-01-23 08:21 | Cardiology Progress Note ---
Date of Service January 23, 2020 Assessment & Plan (1) Atrial fibrillation: She has had resolution of her arrhythmia over the last 24 hours, whether this is due to amiodarone accumulation or improvement following her illness is not clear. Since she was asymptomatic with that I am concerned that perhaps she has a background history of atrial fibrillation and we will need to exclude that in the future. Although there are several approaches that could be taken I would recommend discontinuation of amiodarone now and continued monitoring while she is here in the hospital and probably for a month as an outpatient unless she has recurrent atrial fibrillation. If she has recurrent atrial fibrillation with discontinuation of the amiodarone that I would probably assume that it has been present in the past. That is assuming that her cardiac ultrasound (which we can now get) is unremarkable. I am going to continue her digoxin for now and I am going to add a beta-yann for rate control as noted below under hypertension, she was on this at home. (2) Anticoagulant long-term use: I agree with the use of anticoagulation, I agree with the use of Eliquis and I would dose it based on her kidney function which has now improved so that her creatinine is less than 1.5. Given her weight and her improved creatinine she should be on the 5 mg dose. I would continue anticoagulation until we are confident that she does not have atrial fibrillation. I will increase her dose today to the 5 mg twice a day dose. (3) Hypertension: She has a history of hypertension but here her blood pressure was not elevated initially, probably due to her illness. Her blood pressure has been elevated over the last 24 hours, probably consistent with her improvement. She is on amlodipine, lisinopril and metoprolol tartrate at home as well as Dyazide. Here she is not on blood pressure medications. I suspect she will need them. I am going to restart her metoprolol which will help with rate control if she goes back into atrial fibrillation. Admission and Anticipated Discharge Date Admission Date: January 20, 2020 Subjective Now that the patient is off of COVID-19 isolation I was able to interview her in person and examined her. She confirms that she has no history of atrial fibrillation but also confirms that she did not feel it here in the hospital when she had it. She is familiar with atrial fibrillation as her mother had it, her mother was a nurse. Currently she feels quite well. She is feeling better than on admission, she is not having palpitations, she remains on amiodarone. Physical Exam Physical Exam: Constitutional: Alert, cooperative and in no distress. HEENT: Unremarkable Neck: No jugular venous distention, carotid pulses are normal and equal bilaterally without bruits. Pulmonary: Clear to auscultation bilaterally. Cardiac: Regular rhythm with no murmur, gallop or rub. Abdomen: Soft, nontender with normal bowel sounds. Extremities: No edema. Distal pulses intact. Neurologic: No focal findings. Gait is steady. Skin: No rash, ecchymoses or petechiae. Results & Data ([facility]) Vital Signs (Past 12 Hours) Vital Signs Temp Pulse Pulse Pulse Resp BP Pulse Ox 01/23/20 08:00 73 01/23/20 07:39 36.7 C 70 19 150/76 H 96 01/23/20 04:05 36.7 C 73 147/69 H 94 01/23/20 00:00 69 01/22/20 23:36 36.6 C 71 18 153/72 H 95 Laboratory Results Cardiac Enzymes 01/23/20 Range/Units 05:58 AST 145 H (15-37) U/L CBC 01/23/20 Range/Units 05:58 WBC 6.28 (4.8-10.8) K/uL RBC 3.41 L (4.2-5.4) M/uL Hgb 10.0 L (12.0-16.0) g/dL Hct 30.2 L (37-47) % Plt Count 208 (130-400) K/uL Neut # (Auto) 4.36 (1.4-6.5) K/uL Lymph # (Auto) 1.18 L (1.2-3.4) K/uL [place] # (Auto) 0.45 (0.11-0.59) K/uL Eos # (Auto) 0.20 (0-0.5) K/uL Baso # (Auto) 0.03 (0-0.2) K/uL Comprehensive Metabolic Panel 01/23/20 Range/Units 05:58 Sodium 139 (136-145) mmol/L Potassium 3.4 L (3.5-5.1) mmol/L Chloride 106 (98-107) mmol/L Carbon Dioxide 25 (21-32) mmol/L BUN 30 H (7-18) mg/dl Creatinine 1.33 H D (0.6-1.2) mg/dl Glucose 95 (70-99) mg/dl Calcium 8.9 (8.5-10.1) mg/dl AST 145 H (15-37) U/L ALT 158 H (12-78) U/L Alkaline Phosphatase 258 H (45-117) U/L Total Protein 6.8 (6.4-8.2) gm/dl Albumin 2.7 L (3.4-5.0) gm/dl Intake and Output 01/22/20 01/23/20 01/23/20 22:59 06:59 14:59 Intake Total 487.218 / 1527.218 350 / 1527.218 20.875 / 20.875 Output Total 601 / 1051 450 / 1051 Balance -113.782 / 476.218 -100 / 476.218 20.875 / 20.875 Intake: IV 137.218 / 497.218 250 / 497.218 20.875 / 20.875 Cordarone 450 mg In Dextrose 5% 137.218 / 387.218 250 / 387.218 20.875 / 20.875 Polyolefin Container 241 ml @ 1 MG/MIN 33.333 mls/hr IV . Q7H30M [facility] Rx#:[id number] Oral 350 / 1030 100 / 1030 Output: Urine Amount (Catheter) 600 / 1050 450 / 1050 [place]/Indwelling 600 / 1050 450 / 1050 # Bowel Movements Other: Weight 82.7 kg Diagnostic Findings Telemetry: Sinus rhythm, no atrial fibrillation in about 24 hours. PG Care Time/CCT Total # of Minutes Spent Total Time Spent with Patient: Total time spent is greater than 50% in coordination of care (as documented) at patient's floor/unit and/or counseling patient: Coding Level of Care Code 17987 Subseq Hosp Care Lvl 3 Diagnoses Atrial fibrillation I48.91 Anticoagulant long-term use Z79.01 Hypertension I10
[2020-01-23] MEDS: CEFEPIME 2,000 MG in SYRINGE 7.5 ML IV SCH ×2 (08:45→20:12)
[2020-01-23] MEDS ORDERED: APIXABAN 2.5 MG TAB PO ONE (09:00)
[2020-01-23] MEDS ORDERED: POTASSIUM CHLORIDE 20 MEQ TABCR PO ONE (09:00)
--- NOTE | 2020-01-23 10:05 | XRay Report ---
XR chest 2V PA/lateral CLINICAL HISTORY: Pneumonia. Follow-up examination. COMPARISON STUDY: 01/31/2020 FINDINGS: The cardiac and mediastinal contours remain stable. There are improving bibasilar airspace opacities. Trace pleural effusions are suspected. There is no failure. Arthritic changes are present within the shoulders.[ IMPRESSION: 1. Persistent but improving bibasilar airspace opacities 2. No evidence of failure 3. Trace pleural effusions ACT 112: Negative or not required by law. Electronically signed by: Tom Holly M.D. 01/23/2020 10:04 AM
[2020-01-23] MEDS: METOPROLOL TARTRATE 50 MG TAB PO SCH ×2 (10:07→20:07)
--- NOTE | 2020-01-23 10:42 | Hospitalist Progress Note ---
Date of Service January 23, 2020 Assessment & Plan (1) Atrial fibrillation: -new onset, difficult to control HR in the 160's at times blood pressure very sensitive to metoprolol IV, caused hypotension requiring levophed for 24 hours Secondary to acute illness but is not aware of her arrhythmia so may be occurring outside of the hospital now resolved and remains in NSR since starting on Amiodarone drip and loaded with digoxin -started Eliquis for anticoagulation and now that renal function is improved--> increased today to 5mg po bid -dc IV amiodarone as per Cardio rec -continue po digoxin -will now check echo as she is out of COVID isolation -appreciate Cardiology consult -continue tele monitoring and if has recurrent Afib either here or on outpt 1 month event monitor, then would reinstitute amiodarone (2) Sepsis: due to right lower lobe pneumonia WBC normal, no further fever, almost resolved cough, hypoxia resolved Overall much improved Received Vanco x 2 doses and Azactam since admission, then hanged to Cefepime on 01/21 for coverage of gram negative PNA--> Pseudomaonas, Gram positive, and gram neg PNA MRSA swab negative and Vanco dcd blood cultures, urine culture with no growth CXR 01/22 significantly improved with decreasing infiltrates and effusion keep on PCU due to atrial fibrillation -Procal coming down to 22 today from 75 (3) Pneumonia: Infiltrate in right lower lobe as above COVID testing sent and now returned as NEGATIVE -continued albuterol INH prn (4) Hypertension: BPs were low requiring levophed, now improved with rate/rhythm control -continue holding home Dyazide, lisinopril -now restarting home metoprolol 50mg po bid (5) Dyslipidemia: holding home statin for rhabdo (6) Fever: resolved, due to bacterial pneumonia resolved with treatment (7) Hypoxia: acute hypoxic respiratory failure, resolved with treatment breathing room air comfortably (8) Acute hypotension: due to dehydration, sepsis, likely atrial fibrillation with RVR was also driving some hypotension due to poor filling off of Levophed on 01/20 BP now much improved (9) Chronic kidney disease: stage III Cr has come down from 2.5 to 1.33 since admission which is her baseline eating and drinking well, no further IV fluids monitor UO dose medications appropriately -dc [place] today (10) Rhabdomyolysis: CK 6000 on admission and now continues to be trending downward to 683, secondary to acute infection? Follow CK in AM po hydration continues AST/ALT also elevated which may be from rhabdo-follow LFTs (11) Elevated LFTs: AST/ALT/Alk phos all elevated but stable to improved from previous Could be from rhabdo, sepsis -follow LFTs (12) DVT prophylaxis: Eliquis Dispo-continued stay on PCU status PT/OT evals today, may be ready for discharge in the next 1-2 days Admission and Anticipated Discharge Date Admission Date: January 20, 2020 Anticipated date of discharge: 01/24/20 Subjective Feeling "great." Denies any SOB, no CP. Only very minimal cough. Denies headache or lightheadedness, no abd pain, no nausea, no diarrhea. having normal BMs. Appetite is good. Tele with NSR since yesterday, much improved, no further Afib/flutter. Review of Systems Review of Systems: All systems reviewed & are unremarkable except as noted in HPI & below Physical Exam Constitutional: WD/WN, vitals as above Eyes: + anicteric sclerae ENMT: external ear and nose normal, oropharynx normal Neck: trachea midline, no thyromegaly Respiratory: Auscultation: lungs clear to auscultation bilaterally; no crackles, no rhonchi and no wheezes Cardiovascular: RRR, no murmur, no edema Chest (Breasts): Chest: normal inspection of chest Gastrointestinal (Abdomen): normal bowel sounds, soft, nontender, no hepatosplenomegaly Musculoskeletal: Extremities: extremities normal to inspection; no cyanosis and no clubbing Skin: no rashes, warm and dry Neurologic: moves all extremities and awake; no focal motor deficits Psychiatric: A+Ox3, euthymic affect Lymphatic: no lymphedema Results & Data Results & Data ([facility]) Vital Signs (Past 12 Hours) Vital Signs Temp Pulse Pulse Pulse Resp BP Pulse Ox 01/23/20 08:00 73 01/23/20 07:39 36.7 C 70 19 150/76 H 96 01/23/20 04:05 36.7 C 73 147/69 H 94 01/23/20 00:00 69 01/22/20 23:36 36.6 C 71 18 153/72 H 95 Laboratory Results 01/23/20 01/23/20 01/23/20 Range/Units 05:58 05:58 05:58 WBC 6.28 (4.8-10.8) K/uL RBC 3.41 L (4.2-5.4) M/uL Hgb 10.0 L (12.0-16.0) g/dL Hct 30.2 L (37-47) % MCV 88.6 (80-100) fL MCH 29.3 (25-34) pg MCHC 33.1 (32-36) g/dL RDW Std Deviation 46.8 H (36.4-46.3) fL RDW Coeff of Anastasiya 14.4 (11.5-14.5) % Plt Count 208 (130-400) K/uL MPV 9.0 (7.4-10.4) fL Immature Gran % (Auto) 1.0 % Neut % (Auto) 69.3 % Lymph % (Auto) 18.8 % [place] % (Auto) 7.2 % Eos % (Auto) 3.2 % Baso % (Auto) 0.5 % Immature Gran # (Auto) 0.06 H (0.00-0.02) K/uL Neut # (Auto) 4.36 (1.4-6.5) K/uL Lymph # (Auto) 1.18 L (1.2-3.4) K/uL [place] # (Auto) 0.45 (0.11-0.59) K/uL Eos # (Auto) 0.20 (0-0.5) K/uL Baso # (Auto) 0.03 (0-0.2) K/uL Sodium 139 (136-145) mmol/L Potassium 3.4 L (3.5-5.1) mmol/L Chloride 106 (98-107) mmol/L Carbon Dioxide 25 (21-32) mmol/L Anion Gap 8.0 (3-11) BUN 30 H (7-18) mg/dl Creatinine 1.33 H D (0.6-1.2) mg/dl Est Cr Clr Drug Dosing 36.0 ml/min Est GFR ( Amer) 43.3 Est GFR (Non-Af Amer) 37.4 BUN/Creatinine Ratio 22.4 H (10-20) Glucose 95 (70-99) mg/dl Calcium 8.9 (8.5-10.1) mg/dl Magnesium 1.7 L (1.8-2.4) mg/dl Total Bilirubin 0.4 (0.2-1) mg/dl AST 145 H (15-37) U/L ALT 158 H (12-78) U/L Alkaline Phosphatase 258 H (45-117) U/L Total Creatine Kinase 683 H (26-192) U/L Total Protein 6.8 (6.4-8.2) gm/dl Albumin 2.7 L (3.4-5.0) gm/dl Globulin 4.1 H (2.5-4.0) gm/dl Albumin/Globulin Ratio 0.7 L (0.9-2) Procalcitonin 22.25 H (0-0.5) ng/ml Coronavirus (PCR) (NOT DETECTED) COVID-19 Pt Symptomatic COVID-19 Source SARS Virus RNA (PCR) (NEGATIVE) SARS-CoV-2 RNA (RT-PCR) (NEGATIVE) 01/20/20 Range/Units 00:55 WBC (4.8-10.8) K/uL RBC (4.2-5.4) M/uL Hgb (12.0-16.0) g/dL Hct (37-47) % MCV (80-100) fL MCH (25-34) pg MCHC (32-36) g/dL RDW Std Deviation (36.4-46.3) fL RDW Coeff of Anastasiya (11.5-14.5) % Plt Count (130-400) K/uL MPV (7.4-10.4) fL Immature Gran % (Auto) % Neut % (Auto) % Lymph % (Auto) % [place] % (Auto) % Eos % (Auto) % Baso % (Auto) % Immature Gran # (Auto) (0.00-0.02) K/uL Neut # (Auto) (1.4-6.5) K/uL Lymph # (Auto) (1.2-3.4) K/uL [place] # (Auto) (0.11-0.59) K/uL Eos # (Auto) (0-0.5) K/uL Baso # (Auto) (0-0.2) K/uL Sodium (136-145) mmol/L Potassium (3.5-5.1) mmol/L Chloride (98-107) mmol/L Carbon Dioxide (21-32) mmol/L Anion Gap (3-11) BUN (7-18) mg/dl Creatinine (0.6-1.2) mg/dl Est Cr Clr Drug Dosing ml/min Est GFR ( Amer) Est GFR (Non-Af Amer) BUN/Creatinine Ratio (10-20) Glucose (70-99) mg/dl Calcium (8.5-10.1) mg/dl Magnesium (1.8-2.4) mg/dl Total Bilirubin (0.2-1) mg/dl AST (15-37) U/L ALT (12-78) U/L Alkaline Phosphatase (45-117) U/L Total Creatine Kinase (26-192) U/L Total Protein (6.4-8.2) gm/dl Albumin (3.4-5.0) gm/dl Globulin (2.5-4.0) gm/dl Albumin/Globulin Ratio (0.9-2) Procalcitonin (0-0.5) ng/ml Coronavirus (PCR) NOT DETECTED (NOT DETECTED) COVID-19 Pt Symptomatic YES COVID-19 Source NASOPHARYNGEAL SARS Virus RNA (PCR) NEGATIVE (NEGATIVE) SARS-CoV-2 RNA (RT-PCR) NEGATIVE (NEGATIVE) Diagnostic Findings CXR image personally reviewed and agree with the following report: XR chest 2V PA/lateral CLINICAL HISTORY: Pneumonia. Follow-up examination. COMPARISON STUDY: 01/31/2020 FINDINGS: The cardiac and mediastinal contours remain stable. There are improving bibasilar airspace opacities. Trace pleural effusions are suspected. There is no failure. Arthritic changes are present within the shoulders.[ IMPRESSION: 1. Persistent but improving bibasilar airspace opacities 2. No evidence of failure 3. Trace pleural effusions PG Care Time/CCT Total # of Minutes Spent Total Time Spent with Patient: Total time spent is greater than 50% in coordination of care (as documented) at patient's floor/unit and/or counseling patient: Coding Level of Care Code 12708 Subseq Hosp Care Lvl 3 Diagnoses Atrial fibrillation I48.91 Sepsis A41.9 Sepsis type: sepsis due to unspecified organism Sepsis acute organ dysfunction status: unspecified Pneumonia J18.9 Hypertension I10 Dyslipidemia E78.5 Fever R50.9 Fever type: unspecified Hypoxia R09.02 Acute hypotension I95.9 Chronic kidney disease N18.9 Rhabdomyolysis M62.82 Elevated LFTs R79.89 DVT prophylaxis Z29.9 (1) Sepsis Sepsis type: sepsis due to unspecified organism Sepsis acute organ dysfunction status: unspecified Qualified Code(s): A41.9 - Sepsis, unspecified organism (2) Fever Fever type: unspecified Qualified Code(s): R50.9 - Fever, unspecified
[2020-01-23] MEDS: MAGNESIUM SULFATE / D5W 1 GM/100 ML BAG IV SCH ×2 (11:20→12:04)
--- NOTE | 2020-01-23 14:15 | XCELERA ---
[id number] \\[id number]
[2020-01-23] MEDS: DIGOXIN 0.125 MG TAB PO SCH (16:01)
[2020-01-23] MEDS: ACETAMINOPHEN 500 MG TAB PO SCH (20:07)
[2020-01-23] MEDS: APIXABAN 5 MG TABLET PO SCH (20:07)
[2020-01-24 06:31] LABS: Basophils # (auto) 0.03 K/uL (0-0.2); Basophils % (auto) 0.5 %; Eosinophils # (auto) 0.28 K/uL (0-0.5); Eosinophils % (auto) 4.3 %; Hematocrit (blood only) 30.8 % (37-47); Hemoglobin 10.3 g/dL (12.0-16.0); Immature Granulocytes # (auto) 0.16 K/uL (0.00-0.02); Immature Granulocytes % (auto) 2.5 %; Lymphocytes # (auto) 1.45 K/uL (1.2-3.4); Lymphocytes % (auto) 22.5 %; Mean Corpuscular Hemoglobin 29.4 pg (25-34); Mean Corpuscular Hgb Conc 33.4 g/dL (32-36); Mean Platelet Volume 8.9 fL (7.4-10.4); Monocytes # (auto) 0.69 K/uL (0.11-0.59); Monocytes % (auto) 10.7 %; Neutrophils # (auto) 3.84 K/uL (1.4-6.5); Neutrophils % (auto) 59.5 %; Platelet Count 228 K/uL (130-400); RDW Coefficient of Variation 14.4 % (11.5-14.5); RDW Standard Deviation 46.2 fL (36.4-46.3); White Blood Count 6.45 K/uL (4.8-10.8)
[2020-01-24 07:11] LABS: Albumin Level 2.6 gm/dl (3.4-5.0); BUN Creatinine Ratio 25.9 (10-20); Bilirubin Direct 0.1 mg/dl (0-0.2); Calcium 9.2 mg/dl (8.5-10.1); Creatinine Clr Calc Pharmacy 40.6 ml/min; Est GFR (African American) 50.1; Est GFR (Non-African American) 43.2; Potassium 3.8 mmol/L (3.5-5.1)
[2020-01-24 07:14] LABS: Bilirubin,Total 0.5 mg/dl (0.2-1); Total Protein 6.8 gm/dl (6.4-8.2)
[2020-01-24] MEDS: APIXABAN 5 MG TABLET PO SCH (07:39)
[2020-01-24] MEDS: DOCUSATE SODIUM 100 MG CAP PO SCH (07:39)
[2020-01-24] MEDS: METOPROLOL TARTRATE 50 MG TAB PO SCH (07:39)
--- NOTE | 2020-01-24 08:32 | Cardiology Progress Note ---
Date of Service January 24, 2020 Assessment & Plan (1) Atrial fibrillation: She has had resolution of her arrhythmia over the last several days but was amiodarone for a number of days. That was discontinued yesterday and generally arrhythmias returned quite quickly since she was only on it for a few days and did not receive a proper loading dose. I suspect therefore that she does not have much of an atrial fibrillation burden at this point, but I still cannot exclude the possibility that she has it from time to time. I think we do need to monitor for atrial fibrillation. She has not had a stroke so I do not think an implantable loop recorder is necessary, I am going to start with an event recorder which we can send to her home. I will see her (assuming the office is open) in about 6 weeks and we can review the results of that and decide if any further evaluation or treatment is necessary. She is on her outpatient dose of metoprolol, I do not know how effective that is going to be for rate control until she has episodes of atrial fibrillation, which she may not. I am going to discontinue her digoxin however. (2) Anticoagulant long-term use: I agree with the use of anticoagulation for the moment, she clearly had atrial fibrillation on initial presentation and may have it as a background. Until we have excluded that I would continue anticoagulation unless she has a problem with it. I agree with the use of Eliquis and I would dose it based on her kidney function which has now improved so that her creatinine is less than 1.5. Given her weight and her improved creatinine she should be on the 5 mg dose. (3) Hypertension: She has a history of hypertension but here her blood pressure was not elevated initially, probably due to her illness. Her blood pressure has been elevated over the last 48 hours, probably consistent with her improvement. She is on amlodipine, lisinopril and metoprolol tartrate at home as well as Dyazide. Here she is back on her outpatient metoprolol. I suspect she will need some of her additional outpatient medications Admission and Anticipated Discharge Date Admission Date: January 20, 2020 Anticipated date of discharge: 01/24/20 Subjective She is feeling well today, she is sitting at her bedside and does not have any specific complaints. She would like to go home. Physical Exam Physical Exam: Constitutional: Alert, cooperative and in no distress. HEENT: Unremarkable Neck: No jugular venous distention, carotid pulses are normal and equal bilaterally without bruits. Pulmonary: Clear to auscultation bilaterally. Cardiac: Regular rhythm with no murmur, gallop or rub. Abdomen: Soft, nontender with normal bowel sounds. Extremities: No edema. Distal pulses intact. Neurologic: No focal findings. Gait is steady. Skin: No rash, ecchymoses or petechiae. Results & Data ([facility]) Vital Signs (Past 12 Hours) Vital Signs Temp Pulse Pulse Pulse Resp BP Pulse Ox 01/24/20 08:00 67 01/24/20 07:04 36.6 C 68 22 157/64 H 97 01/24/20 03:43 36.6 C 70 19 152/71 H 96 01/24/20 00:08 36.8 C 60 18 151/67 H 95 01/24/20 00:00 55 L Laboratory Results Cardiac Enzymes 01/24/20 Range/Units 06:16 AST 103 H (15-37) U/L CBC 01/24/20 Range/Units 06:16 WBC 6.45 (4.8-10.8) K/uL RBC 3.50 L (4.2-5.4) M/uL Hgb 10.3 L (12.0-16.0) g/dL Hct 30.8 L (37-47) % Plt Count 228 (130-400) K/uL Neut # (Auto) 3.84 (1.4-6.5) K/uL Lymph # (Auto) 1.45 (1.2-3.4) K/uL Karnes # (Auto) 0.69 H (0.11-0.59) K/uL Eos # (Auto) 0.28 (0-0.5) K/uL Baso # (Auto) 0.03 (0-0.2) K/uL Comprehensive Metabolic Panel 01/24/20 Range/Units 06:16 Sodium 138 (136-145) mmol/L Potassium 3.8 (3.5-5.1) mmol/L Chloride 107 (98-107) mmol/L Carbon Dioxide 26 (21-32) mmol/L BUN 31 H (7-18) mg/dl Creatinine 1.18 (0.6-1.2) mg/dl Glucose 92 (70-99) mg/dl Calcium 9.2 (8.5-10.1) mg/dl Direct Bilirubin 0.1 (0-0.2) mg/dl AST 103 H (15-37) U/L ALT 137 H (12-78) U/L Alkaline Phosphatase 272 H (45-117) U/L Total Protein 6.8 (6.4-8.2) gm/dl Albumin 2.6 L (3.4-5.0) gm/dl Intake and Output 01/23/20 01/24/20 01/24/20 22:59 06:59 14:59 Intake Total 550 / 1514.845 200 / 1514.845 Output Total 100 / 401 1 / 401 Balance 450 / 1113.845 199 / 1113.845 Intake: Oral 550 / 1280 200 / 1280 Output: Urine 100 / 100 # Bowel Movements Other: # Unmeasured Voids 1 Weight 83.1 kg Diagnostic Findings Telemetry: I reviewed telemetry, she is reported to have atrial fibrillation however every episode I looked at is clearly artifact (her heart rate does not change, the baseline is wavy and looks like atrial fibrillation but the ventricular response does not). Yesterday she had periods of sinus rhythm with frequent premature atrial beats and brief (2 or 3 beats) runs of atrial tachycardia. I do not believe she has had atrial fibrillation since discontinuation of amiodarone. ECG 01/23/2020: Normal, NSR Echo 01/23/2020: Normal, LVEF normal, no valve disease PG Care Time/CCT Total # of Minutes Spent Total Time Spent with Patient: Total time spent is greater than 50% in coordination of care (as documented) at patient's floor/unit and/or counseling patient: Coding Level of Care Code 36367 Subseq Hosp Care Lvl 3 Diagnoses Atrial fibrillation I48.91 Anticoagulant long-term use Z79.01 Hypertension I10
[2020-01-24] MEDS ORDERED: POTASSIUM CHLORIDE 20 MEQ TABCR PO STA (08:34)
[2020-01-24] MEDS ORDERED: lisinopriL 20 MG TAB PO SCH (09:00)
[2020-01-24] MEDS: CEFEPIME 2,000 MG in SYRINGE 7.5 ML IV SCH (09:07)
--- NOTE | 2020-01-24 11:22 | Discharge Summary ---
Date of Service January 24, 2020 Admission HPI Per Admitting Provider 79yo C female with history of HTN/HLP presenting with SOB, fever and cough x 2 days. Patient has not traveled. No sick contacts, no known exposure to Covid- 19. EMS reports hypoxic 78% on room air when the arrived. Improvement with supplemental O2 While in the ER she was febrile, tachycardic, hypotensive, tachypneic and hypoxic requiring supplemental O2 Bio[employer] panel and Covid testing sent Remainder of history obtained by ICU team ER Course: Tylenol, Cefepime, Vancomycin, Levaquin, Magnesium x 1gm, NSS x 2L Principal Diagnosis Pneumonia, Sepsis, Rapid atrial fibrillation Acute respiratory failure with hypoxia Discharge Exam Constitutional WD/WN, vitals as above Eyes + anicteric sclerae ENMT external ear and nose normal, oropharynx normal Neck trachea midline, no thyromegaly Respiratory Auscultation: lungs clear to auscultation bilaterally; no crackles, no rhonchi and no wheezes Cardiovascular RRR, no murmur, no edema Extremities: no edema Chest (Breasts) Chest: normal inspection of chest Gastrointestinal (Abdomen) normal bowel sounds, soft, nontender, no hepatosplenomegaly Musculoskeletal Extremities: extremities normal to inspection; no cyanosis and no clubbing Skin no rashes, warm and dry Neurologic moves all extremities and awake; no focal motor deficits Psychiatric A+Ox3, euthymic affect Lymphatic no lymphedema Discharge Data Allergies Allergy/AdvReac Type Severity Reaction Status Date / Time Penicillins Allergy Unknown Verified 01/22/20 08:56 Sulfa (Sulfonamide Allergy Unknown Verified 01/22/20 08:56 Antibiotics) amoxicillin AdvReac Hypotension Verified 01/22/20 07:55 Consultations 01/20/20 01:42 ED Decision to Admit Stat 01/20/20 04:45 Consult Case Management - Discharge Planning Routine Consult Spotter Driver Routine 01/22/20 09:20 Consult Cardiology Routine Ordered Studies CXR x 4 ECHO Hospital Course (1) Atrial fibrillation: -new onset, difficult to control initially HR in the 160's initially blood pressure was very sensitive to metoprolol IV, caused hypotension requiring levophed for 24 hours Secondary to acute illness but is not aware of her arrhythmia so may be occurring outside of the hospital now resolved and remains in NSR since starting on Amiodarone drip and loaded with digoxin -started Eliquis for anticoagulation -continue 5mg po bid -dcd IV amiodarone as per Cardio rec -also placed on po digoxin however Cardiology decided to also discontinue this prior upon discharge -ECHO with normal LVEF and no significant valvular abnormalities -appreciate Cardiology consult -plan is for outpatient 30 day event monitor after discharge to assess Afib burden--> if has recurrent Afib, then would reinstitute amiodarone po as outpt as per Cardiology -needs outpatient f/u with Cardiology in 6 weeks as per their notes -continue home dose of metoprolol (2) Sepsis: due to right lower lobe pneumonia WBC normal, no further fever, cough, hypoxia resolved Overall much improved Received Vanco x 2 doses and Azactam since admission, then hanged to Cefepime on 01/21 for coverage of gram negative PNA--> Pseudomaonas, Gram positive, and gram neg PNA MRSA swab negative and Vanco dcd blood cultures, urine culture with no growth CXR 01/22 significantly improved with decreasing infiltrates and effusion -Procal continued to trend downward from 75 D/c to home to finish out a course of po cefdinir -follow CXR in 4 weeks to ensure resolution (3) Pneumonia: Infiltrate in right lower lobe as above COVID testing sent and now returned as NEGATIVE -continued albuterol INH prn (4) Hypertension: BPs were low requiring levophed, now improved with rate/rhythm control -ok to restart home Dyazide, lisinopril on discharge -continue home metoprolol 50mg po bid (5) Dyslipidemia: held home statin for rhabdo--> ok to restart (6) Fever: resolved, due to bacterial pneumonia resolved with treatment (7) Hypoxia: acute hypoxic respiratory failure, resolved with treatment breathing room air comfortably (8) Acute hypotension: due to dehydration, sepsis, likely atrial fibrillation with RVR was also driving some hypotension due to poor filling off of Levophed on 01/20 BP now much improved (9) Chronic kidney disease: stage III Cr has come down from 2.5 to 1.1 since admission which is her baseline eating and drinking well, no further IV fluids dose medications appropriately (10) Rhabdomyolysis: CK 6000 on admission and now continues to be trending downward to 300, secondary to acute infection? po hydration now, resolving AST/ALT also elevated which may be from rhabdo-follow LFTs after discharge but overall much improved (11) Elevated LFTs: AST/ALT/Alk phos all elevated but stable to improved from previous Could be from rhabdo, sepsis -follow LFTs after discharge (12) DVT prophylaxis: Eliquis Dispo-stable for discharge, is ambulatory, much improved Home with home health Total Time Total Time Spent Total Time Spent (In Minutes): 40 min Total Time Includes: Examination of the Patient, Discharge Planning, Medication Reconciliation and Communication With Other Providers (Cardiology) Discharge Plan Discharge Items Patient Disposition: Home - Home Health Services Reason For Visit: HYPOTENSION, HYPOXIA, PUI COVID RULE OUT Discharge Diagnosis: Pneumonia,sepsis, Rapid atrial fibrillation, Acute respiratory failure with hypoxia Condition on Discharge: Good Activity: As commented below Lifting: Gradually increase as tolerated Bathing: No limitations Exercise/Sports: Gradually increase as tolerated Exercise Comment: with home PT/OT Non-emergency contact: Primary Care Provider and Retort Unloader Call non-emergency contact if: you have any medication questions and your symptoms worsen Follow-up/Referrals: Juanito Claudio MD [Physician] - (Please follow up within 2-3 weeks. ) Paresh Myers MD [Primary Care Provider] - (Please follow up within [address] Priscila Santos's office to see if he wants you to come in to be seen.) Diet: Heart Healthy Addtl Attending Provider Instructions: Please finish out the course of antibiotics for your pneumonia with cefdinir 300mg twice a day for 3 more days. For your rapid, irregular heartbeat called atrial fibrillation--> this was controlled with medications to convert you back to a normal rhythm and control your heart rate. You will continue your usual home metoprolol dose and were started on digoxin once daily. You were also started on a blood thinner to reduce your risk of stroke-this is called Eliquis. The machine ii trimmer will be sending you a heart monitor to wear for a few weeks to see if you have recurrence of your abnormal heart rhythm. Your liver tests were abnormal from your illness but are improving at the time of discharge. Please have blood work checked on Wednesday to ensure the liver tests have completely returned to normal. Pending Studies at Discharge: Yes (Final Blood Cultures) Stand-Alone Forms: My [facility] [employer] Medications and DC Order Prescriptions: New Eliquis 5 mg Tablet 5 mg PO BID Qty: 60 RF: 0 digoxin 125 mcg (0.125 mg) tablet 62.5 mcg PO DAILY Qty: 15 RF: 0 cefdinir 300 mg capsule 300 mg PO BID Qty: 6 RF: 0 Continued CALCIUM CARBONATE-VITAMIN D W/ (CALTRATE 600 PLUS) 1 TAB tablet 1 tab PO DAILY Qty: 0 RF: 0 lisinopril 20 mg Tablet 20 mg PO DAILY RF: 0 amlodipine 2.5 mg Tablet 2.5 mg PO DAILY RF: 0 simvastatin 20 mg Tablet 20 mg PO HS RF: 0 albuterol sulfate [Ventolin HFA] 90 mcg/actuation Hfa Aerosol Inhaler 1 - 2 puff INHALATION DAILY PRN (Reason: sob/wheezing) RF: 0 triamterene-hydrochlorothiazid 75-50 mg Tablet 1 tab PO DAILY RF: 0 metoprolol tartrate 50 mg Tablet 50 mg PO BID RF: 0 Discontinued Aspirin Enteric Coated (Ecotrin Or Generic) 81 MG tablet 81 mg PO DAILY Qty: 0 RF: 0 Discharge Orders: Discharge Order (Routine); Ordered 01/24/20 Ordered By: Meghana Jennings Admission Data Admit Date/Time: 01/20/20 03:38 Attending Provider: Meghana Jennings Admit Provider: Shelby Vanessa Primary Care Provider: Paresh Myers Other Providers: Shelby Vanessa ; Julio C Gonsales ; Juanito Claudio ; [facility] Other Interventions: Discharge Summary Assessment (RN) Last Done: 01/24/20 11:00 DC Date/Time DO NOT enter until pt leaves facility: 01/24/20 13:10 Coding Level of Care Code D/C Day Management >30 mins Diagnoses Atrial fibrillation I48.91 Sepsis A41.9 Sepsis acute organ dysfunction status: unspecified Sepsis type: sepsis due to unspecified organism Pneumonia J18.9 Hypertension I10 Dyslipidemia E78.5 Fever R50.9 Fever type: unspecified Hypoxia R09.02 Acute hypotension I95.9 Chronic kidney disease N18.9 Rhabdomyolysis M62.82 Elevated LFTs R79.89 DVT prophylaxis Z29.9
--- NOTE | 2020-01-24 14:41 | Electrocardiogram Report ---
Test Reason : Blood Pressure : / mmHG Vent. Rate : 079 BPM Atrial Rate : 079 BPM P-R Int : 146 ms QRS Dur : 080 ms QT Int : 380 ms P-R-T Axes : 017 001 019 degrees QTc Int : 435 ms Normal sinus rhythm Normal ECG No previous ECGs available Confirmed by Juanito Claudio ([id number]) on 01/24/2020 2:41:14 PM Referred By: REFERRED SELF Confirmed By:Juanito Claudio
== END 2020-01-24 13:10 | disposition home health service (06) | DRG 871 ==
LOC: ED 00:38 → MERGE 03:38 → SUATTDRO 03:38 → 2E 03:38 → 2S 01-22 14:19

== ENCOUNTER 2021-08-20 16:20 | Inpatient (IN) ==
--- NOTE | 2021-08-20 16:54 | Emergency Department Note ---
History of Present Illness General Chief complaint: Fall Time Seen by Provider: 08/20/21 16:28 History of Present Illness Maximum Pain Intensity: 5 81-year-old female presents to the ED with a chief complaint of a fall. The patient states that she was using her walker and lost her balance and fell onto the sidewalk. She is on Eliquis chronically for A. fib. The patient states that she did not lose consciousness. She thinks that she bumped her head on the ground. She complains of some left hip pain. Denies headaches. No neck pain or back pain. No other complaints. Home Medications Medication Instructions Recorded Confirmed Type albuterol sulfate 90 mcg/actuation 1 - 2 puff INHALATION DAILY PRN 01/20/20 08/20/21 History aerosol inhaler (Ventolin HFA) amlodipine 2.5 mg tablet 2.5 mg PO DAILY 01/20/20 08/20/21 History lisinopril 20 mg tablet 20 mg PO BID 01/20/20 08/20/21 History metoprolol tartrate 50 mg tablet 50 mg PO BID 01/20/20 08/20/21 History simvastatin 20 mg tablet 20 mg PO HS 01/20/20 08/20/21 History acetaminophen 500 mg tablet 250 mg PO ONCE PRN tab 02/13/20 08/20/21 History (Tylenol Extra Strength) apixaban 5 mg tablet (Eliquis) 5 mg PO BID #60 tab 02/13/21 08/20/21 Rx calcium carbonate 600 mg(1,500 1 tab PO DAILY 08/20/21 08/20/21 History mg)-vitamin D3 800 unit chewable tablet (Caltrate 600 plus D) triamterene 75 1 tab PO DAILY 08/20/21 08/20/21 History mg-hydrochlorothiazide 50 mg tablet Allergies Allergy/AdvReac Type Severity Reaction Status Date / Time Penicillins Allergy Unknown Verified 08/20/21 18:18 Sulfa (Sulfonamide Allergy Unknown Verified 08/20/21 18:18 Antibiotics) amoxicillin AdvReac Hypotension Verified 08/20/21 18:18 Past Med/Surg History Medical History (Updated 08/20/21 @ 20:08 by CYRIL Martin) Dyslipidemia Hypertension Social History Smoking Status: Never smoker Hx Alcohol Use: No Hx Substance Use: No Preferred Language: Kazakh Communication Ability: Effective Beliefs That Will Affect Care: None Current Living Situation: Spouse Feels Safe at Home: Yes Assistive Devices: Walker Review of Systems A total of 10 systems reviewed and were otherwise negative Physical Exam Vital Signs Vital Signs - 24 hr 08/20/21 16:26 08/20/21 16:28 08/20/21 17:49 Temperature 36.9 C Temperature Source Temporal Artery Scan Pulse Rate 121 H Pulse Rate [Apical] 132 H 149 H Respiratory Rate 20 17 Respiratory Effort / Characteristics Non-Labored Spontaneous Respiratory Depth Normal Respiratory Pattern Regular Blood Pressure 183/121 H Blood Pressure [Left Arm] 183/121 H 151/120 H Blood Pressure Mean 141 Blood Pressure Mean [Left Arm] 141 130 Blood Pressure Position Semi-fowlers Blood Pressure Position [Left Arm] Semi-fowlers Pulse Oximetry 93 93 93 Oxygen Delivery Method Room Air Room Air Sepsis Recent Fever Within 48 Hours No Sepsis New/Unexplained Change in Mental Status No Sepsis Action Taken by Nursing No Action Required 08/20/21 18:39 08/20/21 18:52 08/20/21 19:15 Temperature Temperature Source Pulse Rate 138 H 152 H Pulse Rate [Apical] 120 H Respiratory Rate 12 Respiratory Effort / Characteristics Respiratory Depth Respiratory Pattern Blood Pressure 151/120 H 133/106 H Blood Pressure [Left Arm] 155/88 H Blood Pressure Mean Blood Pressure Mean [Left Arm] 110 Blood Pressure Position Blood Pressure Position [Left Arm] Semi-fowlers Pulse Oximetry 94 Oxygen Delivery Method Room Air Sepsis Recent Fever Within 48 Hours Sepsis New/Unexplained Change in Mental Status Sepsis Action Taken by Nursing CONSTITUTIONAL/VITAL SIGNS: Reviewed / noted above. GENERAL: Non-toxic in appearance. INTEGUMENTARY: Warm, dry, and [place]. HEAD: Normocephalic. EYES: without scleral icterus or trauma. ENT/OROPHARYNX: clear and moist. LYMPHADENOPATHY/NECK: Is supple without lymphadenopathy or meningismus. RESPIRATORY: Clear to auscultation bilaterally. No increased work of breathing. CARDIOVASCULAR: Regular rate and rhythm. GI/ABDOMEN: Soft and nontender. No organomegaly or pulsatile mass. EXTREMITIES: Warm and well perfused. There is mild discomfort with palpation the left hip region. No obvious ecchymosis. No deformity. Range of motion w ith minimal discomfort. BACK: No CVA tenderness. NEUROLOGICAL: Intact without focal deficits. PSYCHIATRIC: normal affect. MUSCULOSKELETAL: Normally developed with good muscle tone. TRIAGE NURSING DOCUMENTATION REVIEWED. Course Administered Medications Sodium Chloride (Nss 1000ml) 1,000 mls @ 150 mls/hr IV .[id number] JANY Stop: 08/21/21 00:24 Last Admin: 08/20/21 18:34 Dose: 150 mls/hr Documented by: [id number] Magnesium Sulfate/Dextrose (Magnesium Sulfate / D5w) 1 gm in 100 mls @ 50 mls/hr IV Q2H JANY Stop: 08/21/21 01:59 Last Admin: 08/20/21 19:28 Dose: 50 mls/hr Documented by: [id number] Metoprolol Tartrate (Metoprolol Tartrate 1 Mg/Ml Vial) 5 mg IV Q5M PRN PRN Reason: Tachycardia Stop: 09/19/21 18:18 Last Admin: 08/20/21 19:15 Dose: 5 mg Documented by: [id number] Admin: 08/20/21 18:39 Dose: 5 mg Documented by: [id number] Discontinued Medications Acetaminophen (Acetaminophen 500 Mg Tab) 500 mg PO NOW STA Stop: 08/20/21 17:11 Last Admin: 08/20/21 17:50 Dose: 500 mg Documented by: [id number] Critical Care Time Critical Care Time: Yes Total Critical Care Time: 30 I have personally spent 30 minutes of critical care time in the direct ma nagement of this patient. This includes bedside care, interpretation of diagnostic studies, and testing, discussion with consultants, patient, and family members, and other required patient management activities. This 30 minutes is in excess of all separately billable procedures. Medical Decision Making Differential Diagnosis Differential includes close head injury, intracranial bleed, facial trauma, cervical spine trauma, chest and thoracic trauma, abdominal and intra-abdominal trauma, spine neurologic trauma, extremity trauma. Medical Records Attestation: I reviewed the patient's medical records. Home Medications Current Medication List: was personally reviewed by me Laboratory Data Result diagrams: 08/20/21 18:10 08/20/21 18:10 Lab Results 08/20/21 08/20/21 08/20/21 Range/Units 18:10 18:10 18:10 WBC 9.26 (4.8-10.8) K/uL RBC 4.52 (4.2-5.4) M/uL Hgb 13.7 (12.0-16.0) g/dL Hct 38.3 (37-47) % MCV 84.7 (80-100) fL MCH 30.3 (25-34) pg MCHC 35.8 (32-36) g/dL RDW Std Deviation 42.1 (36.4-46.3) fL RDW Coeff of Anastasiya 13.5 (11.5-14.5) % Plt Count 239 (130-400) K/uL MPV 8.6 (7.4-10.4) fL Immature Gran % (Auto) 0.4 % Neut % (Auto) 77.5 % Lymph % (Auto) 11.7 % Armstrong % (Auto) 9.3 % Eos % (Auto) 0.9 % Baso % (Auto) 0.2 % Neut # (Auto) 7.18 H (1.4-6.5) K/uL Lymph # (Auto) 1.08 L (1.2-3.4) K/uL Armstrong # (Auto) 0.86 H (0.11-0.59) K/uL Eos # (Auto) 0.08 (0-0.5) K/uL Baso # (Auto) 0.02 (0-0.2) K/uL Immature Gran # (Auto) 0.04 H (0.00-0.02) K/uL PT 9.8 (9.0-12.0) Seconds INR 1.0 (0.9-1.1) APTT 28.2 (21.0-31.0) Seconds PTT Ratio 1.1 Sodium 130 L (136-145) mmol/L Potassium 4.4 (3.5-5.1) mmol/L Chloride 96 L (98-107) mmol/L Carbon Dioxide 27 (21-32) mmol/L Anion Gap 7.0 (3-11) BUN 22 H (7-18) mg/dl Creatinine 1.15 (0.6-1.2) mg/dl Est Cr Clr Drug Dosing 39.9 ml/min Est GFR ( Amer) 51.0 ml/min Est GFR (Non-Af Amer) 44.0 ml/min BUN/Creatinine Ratio 18.8 (10-20) Glucose 106 H (70-99) mg/dl Calcium 10.2 H (8.5-10.1) mg/dl Magnesium 1.6 L (1.8-2.4) mg/dl Total Bilirubin 0.4 (0.2-1) mg/dl AST 48 H (15-37) U/L ALT 47 (12-78) U/L Alkaline Phosphatase 180 H (45-117) U/L Total Protein 8.2 (6.4-8.2) gm/dl Albumin 4.0 (3.4-5.0) gm/dl Globulin 4.2 H (2.5-4.0) gm/dl Albumin/Globulin Ratio 1.0 (0.9-2) Urine Color Urine Appearance (Clear) Urine pH (4.5-7.5) Ur Specific [place] (1.000-1.030) Urine Protein (Negative) Urine Glucose (UA) (Negative) Urine Ketones (Negative) Urine Blood (Negative) Urine Nitrite (Negative) Urine Bilirubin (Negative) Urine Urobilinogen (Negative) Ur Leukocyte Esterase (Negative) Urine WBC (Auto) (0-5) /hpf Urine RBC (Auto) (0-4) /hpf U Hyaline Cast (Auto) (0-5) /lpf U Epithel Cells (Auto) (0-5) /lpf Urine Bacteria (Auto) (Negative) COVID-19 Eval Order SARS-CoV-2 (PCR) (Negative) Blood Type Antibody Screen 08/20/21 08/20/21 08/20/21 Range/Units 18:18 18:20 18:28 WBC (4.8-10.8) K/uL RBC (4.2-5.4) M/uL Hgb (12.0-16.0) g/dL Hct (37-47) % MCV (80-100) fL MCH (25-34) pg MCHC (32-36) g/dL RDW Std Deviation (36.4-46.3) fL RDW Coeff of Anastasiya (11.5-14.5) % Plt Count (130-400) K/uL MPV (7.4-10.4) fL Immature Gran % (Auto) % Neut % (Auto) % Lymph % (Auto) % Armstrong % (Auto) % Eos % (Auto) % Baso % (Auto) % Neut # (Auto) (1.4-6.5) K/uL Lymph # (Auto) (1.2-3.4) K/uL Armstrong # (Auto) (0.11-0.59) K/uL Eos # (Auto) (0-0.5) K/uL Baso # (Auto) (0-0.2) K/uL Immature Gran # (Auto) (0.00-0.02) K/uL PT (9.0-12.0) Seconds INR (0.9-1.1) APTT (21.0-31.0) Seconds PTT Ratio Sodium (136-145) mmol/L Potassium (3.5-5.1) mmol/L Chloride (98-107) mmol/L Carbon Dioxide (21-32) mmol/L Anion Gap (3-11) BUN (7-18) mg/dl Creatinine (0.6-1.2) mg/dl Est Cr Clr Drug Dosing ml/min Est GFR ( Amer) ml/min Est GFR (Non-Af Amer) ml/min BUN/Creatinine Ratio (10-20) Glucose (70-99) mg/dl Calcium (8.5-10.1) mg/dl Magnesium (1.8-2.4) mg/dl Total Bilirubin (0.2-1) mg/dl AST (15-37) U/L ALT (12-78) U/L Alkaline Phosphatase (45-117) U/L Total Protein (6.4-8.2) gm/dl Albumin (3.4-5.0) gm/dl Globulin (2.5-4.0) gm/dl Albumin/Globulin Ratio (0.9-2) Urine Color Yellow Urine Appearance Clear (Clear) Urine pH 7.5 (4.5-7.5) Ur Specific [place] 1.008 (1.000-1.030) Urine Protein Negative (Negative) Urine Glucose (UA) Negative (Negative) Urine Ketones Negative (Negative) Urine Blood Trace H (Negative) Urine Nitrite Negative (Negative) Urine Bilirubin Negative (Negative) Urine Urobilinogen Negative (Negative) Ur Leukocyte Esterase Negative (Negative) Urine WBC (Auto) 1-5 (0-5) /hpf Urine RBC (Auto) 0-4 (0-4) /hpf U Hyaline Cast (Auto) 0 (0-5) /lpf U Epithel Cells (Auto) 0-5 (0-5) /lpf Urine Bacteria (Auto) Negative (Negative) COVID-19 Eval Order Covid19 at [facility] SARS-CoV-2 (PCR) (Negative) Blood Type O Positive Antibody Screen NEGATIVE 08/20/21 Range/Units 18:28 WBC (4.8-10.8) K/uL RBC (4.2-5.4) M/uL Hgb (12.0-16.0) g/dL Hct (37-47) % MCV (80-100) fL MCH (25-34) pg MCHC (32-36) g/dL RDW Std Deviation (36.4-46.3) fL RDW Coeff of Anastasiya (11.5-14.5) % Plt Count (130-400) K/uL MPV (7.4-10.4) fL Immature Gran % (Auto) % Neut % (Auto) % Lymph % (Auto) % Armstrong % (Auto) % Eos % (Auto) % Baso % (Auto) % Neut # (Auto) (1.4-6.5) K/uL Lymph # (Auto) (1.2-3.4) K/uL Armstrong # (Auto) (0.11-0.59) K/uL Eos # (Auto) (0-0.5) K/uL Baso # (Auto) (0-0.2) K/uL Immature Gran # (Auto) (0.00-0.02) K/uL PT (9.0-12.0) Seconds INR (0.9-1.1) APTT (21.0-31.0) Seconds PTT Ratio Sodium (136-145) mmol/L Potassium (3.5-5.1) mmol/L Chloride (98-107) mmol/L Carbon Dioxide (21-32) mmol/L Anion Gap (3-11) BUN (7-18) mg/dl Creatinine (0.6-1.2) mg/dl Est Cr Clr Drug Dosing ml/min Est GFR ( Amer) ml/min Est GFR (Non-Af Amer) ml/min BUN/Creatinine Ratio (10-20) Glucose (70-99) mg/dl Calcium (8.5-10.1) mg/dl Magnesium (1.8-2.4) mg/dl Total Bilirubin (0.2-1) mg/dl AST (15-37) U/L ALT (12-78) U/L Alkaline Phosphatase (45-117) U/L Total Protein (6.4-8.2) gm/dl Albumin (3.4-5.0) gm/dl Globulin (2.5-4.0) gm/dl Albumin/Globulin Ratio (0.9-2) Urine Color Urine Appearance (Clear) Urine pH (4.5-7.5) Ur Specific [place] (1.000-1.030) Urine Protein (Negative) Urine Glucose (UA) (Negative) Urine Ketones (Negative) Urine Blood (Negative) Urine Nitrite (Negative) Urine Bilirubin (Negative) Urine Urobilinogen (Negative) Ur Leukocyte Esterase (Negative) Urine WBC (Auto) (0-5) /hpf Urine RBC (Auto) (0-4) /hpf U Hyaline Cast (Auto) (0-5) /lpf U Epithel Cells (Auto) (0-5) /lpf Urine Bacteria (Auto) (Negative) COVID-19 Eval Order SARS-CoV-2 (PCR) NEGATIVE (Negative) Blood Type Antibody Screen Imaging Data Radiologist's Impression: Head CT 08/20/21 16:[address] DOSE: 537.48 mGy.cm HISTORY: fall, on Eliquis TECHNIQUE: Multiaxial CT images of the head were performed without the use of intravenous contrast. Automated exposure control was utilized for this study. A dose lowering technique was utilized adhering to the principles of ALARA. Comparison: None. Findings: Complete opacification of the visualized left maxillary sinus, left anterior ethmoid air cells, and left frontal sinus. Partial opacification of the right sphenoid sinus. The mastoid air cells are clear. The calvarium and skull base are intact. The ventricles and sulci are within normal limits. There is no mass, hematoma, midline shift, or acute infarct. Impression: No acute intracranial abnormality. Chronic sinus disease as described above. ACT 112: Negative or not required by law. Electronically signed by: Gio Grant M.D. 08/20/2021 5:18 PM Hip/Pelvis X-Ray 08/20/21 16:51 XR hip LT 2V w pelvis CLINICAL HISTORY: fall, left hip pain COMPARISON STUDY: None. FINDINGS: Slightly impacted subcapital left femoral neck fracture. No dislocation. The visualized pelvic bones and right hip are intact. IMPRESSION: Slightly impacted subcapital left femoral neck fracture. ACT 112: Negative or not required by law. Electronically signed by: Gio Grant M.D. 08/20/2021 5:30 PM Chest X-Ray 08/20/21 17:42 XR chest 1V portable HISTORY: Hip fracture. Fall. COMPARISON: Chest 01/23/2020. FINDINGS: The lungs are clear. Cardiac silhouette is normal in size. No pleural effusions. No pneumothorax. Stable prominence of the central pulmonary arteries. Degenerative changes again noted within the shoulders. No acute fractures within the visualized osseous structures of the chest. IMPRESSION: No acute process. ACT 112: Negative or not required by law. Electronically signed by: Gio Grant M.D. 08/20/2021 6:48 PM ECG Data Additional Comments: Twelve-lead EKG: Per my interpretation there is atrial fibrillation at a rate of around 150. No ST elevation. No PVCs. Normal QTC. MDM Narrative Patient presents after a fall on EliYaSabe with some left hip pain and bumping her head. Her vital signs reveal hypertension and tachycardia. She is in no distress clinically. Mild left hip tenderness and discomfort on movement. No obvious trauma to the head noted. X-ray shows a slightly impacted subcapital left femoral neck fracture. Chest x-ray was negative for acute disease. EKG shows rapid A. fib. CBC and chemistry panel was unremarkable. The patient was treated with IV Lopressor 5 mg x 5. She was also given some p.o. Tylenol for her discomfort. She did not want any thing stronger. The heart rate did improve with the Lopressor. IV magnesium was ordered by the hospitalist krishna robles. She has been seen by them for further inpatient evaluation and care. Impression & Plan Fall, Acute pain of left hip, Atrial fibrillation with RVR Discharge Plan Visit Data Chief Complaint: Fall ED Provider: Sanya Nicole Discharge Problem: Fall, Acute pain of left hip, Atrial fibrillation with RVR Patient Disposition: Being Evaluated by Hospitalist Forms Stand Alone Forms: My [facility] Prescriptions Prescriptions: No Action Eliquis 5 mg tablet 5 mg PO BID Qty: 60 RF: 11 Hold Instructions: No documented atrial fibrillation acetaminophen [Tylenol Extra Strength] 500 mg tablet 250 mg PO ONCE PRN (Reason: Pain) RF: 0 lisinopril 20 mg Tablet 20 mg PO BID RF: 0 amlodipine 2.5 mg Tablet 2.5 mg PO DAILY RF: 0 simvastatin 20 mg Tablet 20 mg PO HS RF: 0 albuterol sulfate [Ventolin HFA] 90 mcg/actuation Hfa Aerosol Inhaler 1 - 2 puff INHALATION DAILY PRN (Reason: sob/wheezing) RF: 0 metoprolol tartrate 50 mg Tablet 50 mg PO BID RF: 0 Caltrate 600 plus D 600 mg (1,500 mg)-800 unit Tablet,Chewable 1 tab PO DAILY RF: 0 triamterene-hydrochlorothiazid 75-50 mg tablet 1 tab PO DAILY RF: 0 Referrals Referrals: Paresh Myers MD [Primary Care Provider] -
[2021-08-20] MEDS ORDERED: ACETAMINOPHEN 500 MG TAB PO STA (17:10)
--- NOTE | 2021-08-20 17:20 | CT Scan Report ---
HEAD CT NONCONTRAST CT DOSE: 537.48 mGy.cm HISTORY: fall, on Eliquis TECHNIQUE: Multiaxial CT images of the head were performed without the use of intravenous contrast. A utomated exposure control was utilized for this study. A dose lowering technique was utilized adheri ng to the principles of ALARA. Comparison: None. Findings: Complete opacification of the visualized left maxillary sinus, left anterior ethmoid air ce lls, and left frontal sinus. Partial opacification of the right sphenoid sinus. The mastoid air cells are clear. The calvarium and skull base are intact. The ventricles and sulci are within normal limit s. There is no mass, hematoma, midline shift, or acute infarct. Impression: No acute intracranial abnormality. Chronic sinus disease as described above. ACT 112: Negative or not required by law. Electronically signed by: Gio Grant M.D. 08/20/2021 5:18 PM
--- NOTE | 2021-08-20 17:31 | XRay Report ---
XR hip LT 2V w pelvis CLINICAL HISTORY: fall, left hip pain COMPARISON STUDY: None. FINDINGS: Slightly impacted subcapital left femoral neck fracture. No dislocation. The visualized pel raisa bones and right hip are intact. IMPRESSION: Slightly impacted subcapital left femoral neck fracture. ACT 112: Negative or not required by law. Electronically signed by: Gio Grant M.D. 08/20/2021 5:30 PM
[2021-08-20] MEDS ORDERED: SODIUM CHLORIDE 0.9% 1000ML 1,000 ML IV SCH (17:45)
[2021-08-20 18:20] LABS: Basophils # (auto) 0.02 K/uL (0-0.2); Basophils % (auto) 0.2 %; Eosinophils # (auto) 0.08 K/uL (0-0.5); Eosinophils % (auto) 0.9 %; Hematocrit (blood only) 38.3 % (37-47); Hemoglobin 13.7 g/dL (12.0-16.0); Immature Granulocytes # (auto) 0.04 K/uL (0.00-0.02); Immature Granulocytes % (auto) 0.4 %; Lymphocytes # (auto) 1.08 K/uL (1.2-3.4); Lymphocytes % (auto) 11.7 %; Mean Corpuscular Hemoglobin 30.3 pg (25-34); Mean Corpuscular Hgb Conc 35.8 g/dL (32-36); Mean Corpuscular Volume 84.7 fL (80-100); Mean Platelet Volume 8.6 fL (7.4-10.4); Monocytes # (auto) 0.86 K/uL (0.11-0.59); Monocytes % (auto) 9.3 %; Neutrophils # (auto) 7.18 K/uL (1.4-6.5); Neutrophils % (auto) 77.5 %; Platelet Count 239 K/uL (130-400); RDW Coefficient of Variation 13.5 % (11.5-14.5); RDW Standard Deviation 42.1 fL (36.4-46.3); Red Blood Count 4.52 M/uL (4.2-5.4); White Blood Count 9.26 K/uL (4.8-10.8)
[2021-08-20 18:36] LABS: Partial Thromboplastin Ratio 1.1; Partial Thromboplastin Time 28.2 Seconds (21.0-31.0); Prothrombin Time 9.8 Seconds (9.0-12.0)
[2021-08-20 18:37] LABS: BUN Creatinine Ratio 18.8 (10-20); Calcium 10.2 mg/dl (8.5-10.1); Creatinine Clr Calc Pharmacy 39.9 ml/min; Potassium 4.4 mmol/L (3.5-5.1)
[2021-08-20 18:39] LABS: Bilirubin,Total 0.4 mg/dl (0.2-1); Globulin 4.2 gm/dl (2.5-4.0); Total Protein 8.2 gm/dl (6.4-8.2)
[2021-08-20] MEDS: METOPROLOL TARTRATE 1 MG/ML VIAL IV PRN ×2 (18:39→19:15)
[2021-08-20 18:41] LABS: Appearance Urine Clear (Clear); Bacteria Urine Automated Negative (Negative); Bilirubin Urine Negative (Negative); Blood Urine Trace (Negative); Cast Urine Automated 0 /lpf (0-5); Color Urine Yellow; Epithelial Cell Urine Auto 0-5 /lpf (0-5); Glucose Urine UA Negative (Negative); Ketones Urine Negative (Negative); Leukocyte Esterase Urine Negative (Negative); Nitrite Urine Negative (Negative); Protein Urine Negative (Negative); RBC Urine Automated 0-4 /hpf (0-4); Specific Gravity Urine 1.008 (1.000-1.030); Urobilinogen Urine Negative (Negative); pH Urine 7.5 (4.5-7.5)
--- NOTE | 2021-08-20 18:49 | XRay Report ---
XR chest 1V portable HISTORY: Hip fracture. Fall. COMPARISON: Chest 01/23/2020. FINDINGS: The lungs are clear. Cardiac silhouette is normal in size. No pleural effusions. No pneumot horax. Stable prominence of the central pulmonary arteries. Degenerative changes again noted within t he shoulders. No acute fractures within the visualized osseous structures of the chest. IMPRESSION: No acute process. ACT 112: Negative or not required by law. Electronically signed by: Gio Grant M.D. 08/20/2021 6:48 PM
[2021-08-20 18:59] LABS: Magnesium 1.6 mg/dl (1.8-2.4)
--- NOTE | 2021-08-20 19:26 | History & Physical Report ---
Date of Service August 20, 2021 Assessment & Plan (1) Acute pain of left hip: Plan: Slightly impacted subcapital left femoral neck fracture. No dislocation. The visualized pelvic bones and right hip are intact - [facility] orthopaedics consulted - Anesthesia consulted - Continue with pain control - NPO after midnight - Once rate controlled should be low risk for surgical correction (2) 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: Plan: LEFT (3) Fall: Plan: On to left hip (4) Atrial fibrillation: Plan: Afib with RVR- review with paroxysmal afib - Stress response appears to trigger her AFIB episodes as well - Magnesium 1.6- replete - Metoprolol 5mg IV q2hrs PRN HR >110 - follow with Metoprolol tartrate 50mg PO now - Continue Metoprolol tartrate 50mg PO BID - If HR continues to be elevated following the above consider Diltiazem or Amiodarone as she is anticoagulated Patient converted back to NSR at 2029 (5) Anticoagulant long-term use: Plan: As above- on Eliquis last dose at 0900 - Hold until surgical evaluaion and if correction of fracture is pursued, hold until hemostasis ensured (6) Hypertension: Plan: Well controlled normally - Hold Triamterene HCTZ for tonight with hyponatremia and mild hypovolemia - Continue with amlodopine - Contine Metoprolol - Continue Lisinopril (7) Chronic kidney disease: Plan: CKD IIIa - Production Artist at baseline - follow with daily BMP (8) Hyponatremia: Plan: Hypovolemic hyponatremic appearing - decrease oral intake today with continued diuretic use - Hold Triamterene/HCTZ for today - restart when more euvolemic and hyponatremia corrected - NA 130- mild no symptoms (9) Hypomagnesemia: Plan: Mag 1.6 - replete with 3GM IV - follow daily - Keep ~2.0 with Afib History of Present Illness Chief Complaint: fall, left hip pain Primary Care Provider: Paresh Myers MD 81 YOF with past medical history: Afib (on Eliquis), HTN, HLD, CKD III, Pneumonia in January 2020 with ICU admission, obesity. Patient comes to the emergency room today after suffering a fall at home. The patient was walking in to the house following grocery shopping behind her and he accidentally bumped into her, she then fell on to her left side on the concrete. She had minimal pain to her hip she says, but because she was on the Eliquis she called EMS. In the EMD she had minimal pain with movement. She had a X-ray of her pelvis and left hip, that revealed Slightly impacted subcapital left femoral neck fracture. Currently her pain is controlled and there is no dislocation or malpositioning. Her HR is in afib with RVR 120-140, she was given 2 doses of IV metoprolol with minimal effect. Her magnesium is 1.6 so will replace and continue with rate controlling agents. Patient will be admitted for pain control, will hold her Apixaban, Orthopaedics consult, and rate control. Patient history of Afib noted on admission in 02/04 following admission for sepsis and PNA. She was rate controlled with amiodarone and started on Eliquis- subsequently converted back to NSR and was discharged on 30 day event monitor. This was reviewed predominantly NSR with afib events and controlled HR while on her Metoprolol 50mg PO BID. She was then placed back on Eliquis for anticoagulation. Her last dose of Eliquis was on 08/20/21 in the morning. She does walk with a cane and uses a walker when it rains or is wet outside. She denies any chest pain or palpitations when she is walking or doing her physical therapy. She is able to go up 4-5 steps but stops secondary to her ankle pain that she has following ankle surgery repair in 2019. She denies any dyspnea at rest or with any exertion or orthopnea. She had an ECHO done in 02/04 with EF 60- 65% normal LV function and ventricular wall thickness and no valve abnormalities. Her asthma is well controlled and she reports using her inhaler 1-2 times per week. Her perioperative risk of perioperative myocardial infraction or cardiac arrest of 0.22%, and Revised Cardiac Risk assessment of [place], Pulmonary edema, VFib/cardiac arrest is 0.4%. Patient has had her COVID vaccination and her COVID test on admission is: NEGATIVE Allergies Allergy/AdvReac Type Severity Reaction Status Date / Time Penicillins Allergy Unknown Verified 08/20/21 18:18 Sulfa (Sulfonamide Allergy Unknown Verified 08/20/21 18:18 Antibiotics) amoxicillin AdvReac Hypotension Verified 08/20/21 18:18 Home Medications Medication Instructions Recorded Confirmed Type albuterol sulfate 90 mcg/actuation 1 - 2 puff INHALATION DAILY PRN 01/20/20 08/20/21 History aerosol inhaler (Ventolin HFA) amlodipine 2.5 mg tablet 2.5 mg PO DAILY 01/20/20 08/20/21 History lisinopril 20 mg tablet 20 mg PO BID 01/20/20 08/20/21 History metoprolol tartrate 50 mg tablet 50 mg PO BID 01/20/20 08/20/21 History simvastatin 20 mg tablet 20 mg PO HS 01/20/20 08/20/21 History acetaminophen 500 mg tablet 250 mg PO ONCE PRN tab 02/13/20 08/20/21 History (Tylenol Extra Strength) apixaban 5 mg tablet (Eliquis) 5 mg PO BID #60 tab 02/13/21 08/20/21 Rx calcium carbonate 600 mg(1,500 1 tab PO DAILY 08/20/21 08/20/21 History mg)-vitamin D3 800 unit chewable tablet (Caltrate 600 plus D) triamterene 75 1 tab PO DAILY 08/20/21 08/20/21 History mg-hydrochlorothiazide 50 mg tablet Past Med/Surg History Medical History (Updated 08/20/21 @ 23:02 by Mohamud Rocha) Anticoagulant long-term use Atrial fibrillation Chronic kidney disease Dyslipidemia Hypertension Surgical History (Updated 08/20/21 @ 23:00 by Mohamud Rocha) H/O wisdom tooth extraction History of tonsillectomy Family History Other Diabetes Hypertension Social History (Updated 08/20/21 @ 22:55 by Mohamud Rocha) Smoking Status: Never smoker Hx Alcohol Use: No Hx Substance Use: No Preferred Language: Wolof Communication Ability: Effective Conference Concierge Required: No Beliefs That Will Affect Care: None marital status: Current Living Situation: Spouse Current Living Situation Comment: [place] current occupational status: retired 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 [place] Other Information That Helps Us Care for You: No Feels Safe at Home: Yes Safety Concerns: Feels Safe At This Time Assistive Devices: Cane, Glasses and Walker Review of Systems Review of Systems: REVIEW OF SYSTEMS: Constitutional: No fever, sweats or chills Eyes: No diplopia, no worsening or blurred vision ENT: normal hearing, no trouble swallowing Respiratory: No cough, sputum, dyspnea at rest or on exertion Cardiovascular: No chest pain, tightness or palpitations Abdomen: No pain, nausea, vomiting, diarrhea or constipation Musculoskeletal: (+) left hip pain and ankle pain, joint pain, calf pain, swelling Neurologic: (+) balance problems walks with cane/walker, No weakness, numbness/tingling, or Psychiatric: No anxiety or depression Skin: No rash or itch Physical Exam Physical Exam: PHYSICAL EXAM: General: awake, alert, no apparent distress Head: Normocephalic, atraumatic ENT: PERRL, EOMI, no pharyngeal exudate, mucous membranes moist Neuro: AAO x 3, speech clear and appropriate, strength intact bilaterally 5/5, sensation intact and equal all extremities and dermatomes, no pronator drift Chest: equal rise and fall of the chest, no accessory muscle use, no heaves or thrills, Clear to auscultation, on room air, Cardiac: irregular rate and rhythm, telemetry reviewed- afib with RVR, skin warm dry, cap refill <3 seconds, peripheral pulses +2 no JVD, no murmur, no edema GI: NABS x 4 quadrants, soft, nontender to palpation, no rebound, guarding or tenderness : Spontaneously voiding, no pain, no CVA tenderness, Extremities: left hip pain, currently controlled mild left leg shortening- strong pulses and normal sensation throughout Psych: Normal mood and affect Skin: no rash or erythema Results & Data Results & Data ([facility]) Vital Signs (Past 12 Hours) Vital Signs Temp Pulse Pulse Resp BP BP Pulse Ox 08/20/21 19:15 152 H 133/106 H 08/20/21 18:52 120 H 12 155/88 H 94 08/20/21 18:39 138 H 151/120 H 08/20/21 17:49 149 H 17 151/120 H 93 08/20/21 16:28 36.9 C 121 H 20 183/121 H 93 08/20/21 16:26 132 H 183/121 H 93 Laboratory Results Abnormal lab results 08/20/21 08/20/21 08/20/21 Range/Units 18:10 18:10 18:20 Neut # (Auto) 7.18 H (1.4-6.5) K/uL Lymph # (Auto) 1.08 L (1.2-3.4) K/uL [place] # (Auto) 0.86 H (0.11-0.59) K/uL Immature Gran # (Auto) 0.04 H (0.00-0.02) K/uL Sodium 130 L (136-145) mmol/L Chloride 96 L (98-107) mmol/L BUN 22 H (7-18) mg/dl Glucose 106 H (70-99) mg/dl Calcium 10.2 H (8.5-10.1) mg/dl Magnesium 1.6 L (1.8-2.4) mg/dl AST 48 H (15-37) U/L Alkaline Phosphatase 180 H (45-117) U/L Globulin 4.2 H (2.5-4.0) gm/dl Urine Blood Trace H (Negative) Diagnostic Findings Head CT 08/20/21 16:[address] DOSE: 537.48 mGy.cm HISTORY: fall, on Eliquis TECHNIQUE: Multiaxial CT images of the head were performed without the use of intravenous contrast. Automated exposure control was utilized for this study. A dose lowering technique was utilized adhering to the principles of ALARA. Comparison: None. Findings: Complete opacification of the visualized left maxillary sinus, left anterior ethmoid air cells, and left frontal sinus. Partial opacification of the right sphenoid sinus. The mastoid air cells are clear. The calvarium and skull base are intact. The ventricles and sulci are within normal limits. There is no mass, hematoma, midline shift, or acute infarct. Impression: No acute intracranial abnormality. Chronic sinus disease as described above. ACT 112: Negative or not required by law. Electronically signed by: Gio Grant M.D. 08/20/2021 5:18 PM Hip/Pelvis X-Ray 08/20/21 16:51 XR hip LT 2V w pelvis CLINICAL HISTORY: fall, left hip pain COMPARISON STUDY: None. FINDINGS: Slightly impacted subcapital left femoral neck fracture. No dislocation. The visualized pelvic bones and right hip are intact. IMPRESSION: Slightly impacted subcapital left femoral neck fracture. ACT 112: Negative or not required by law. Electronically signed by: Gio Grant M.D. 08/20/2021 5:30 PM Chest X-Ray 08/20/21 17:42 XR chest 1V portable HISTORY: Hip fracture. Fall. COMPARISON: Chest 01/23/2020. FINDINGS: The lungs are clear. Cardiac silhouette is normal in size. No pleural effusions. No pneumothorax. Stable prominence of the central pulmonary arteries. Degenerative changes again noted within the shoulders. No acute fractures within the visualized osseous structures of the chest. IMPRESSION: No acute process. ACT 112: Negative or not required by law. Electronically signed by: Gio Grant M.D. 08/20/2021 6:48 PM Medications Administered Sodium Chloride (Nss 1000ml) 1,000 mls @ 150 mls/hr IV .Q6H40M JANY Stop: 08/21/21 00:24 Last Admin: 08/20/21 18:34 Dose: 150 mls/hr Documented by: [id number] Magnesium Sulfate/Dextrose (Magnesium Sulfate / D5w) 1 gm in 100 mls @ 50 mls/hr IV Q2H JANY Stop: 08/21/21 01:59 Last Admin: 08/20/21 19:28 Dose: 50 mls/hr Documented by: [id number] Metoprolol Tartrate (Metoprolol Tartrate 1 Mg/Ml Vial) 5 mg IV Q5M PRN PRN Reason: Tachycardia Stop: 09/19/21 18:18 Last Admin: 08/20/21 19:15 Dose: 5 mg Documented by: [id number] Admin: 08/20/21 18:39 Dose: 5 mg Documented by: [id number] Discontinued Medications Acetaminophen (Acetaminophen 500 Mg Tab) 500 mg PO NOW STA Stop: 08/20/21 17:11 Last Admin: 08/20/21 17:50 Dose: 500 mg Documented by: [id number] Home Medications albuterol sulfate 90 mcg/actuation aerosol inhaler (Ventolin HFA) 1 - 2 puff INHALATION DAILY PRN 01/20/20 [History Confirmed 08/20/21] amlodipine 2.5 mg tablet 2.5 mg PO DAILY 01/20/20 [History Confirmed 08/20/21] lisinopril 20 mg tablet 20 mg PO BID 01/20/20 [History Confirmed 08/20/21] metoprolol tartrate 50 mg tablet 50 mg PO BID 01/20/20 [History Confirmed 08/20/21] simvastatin 20 mg tablet 20 mg PO HS 01/20/20 [History Confirmed 08/20/21] acetaminophen 500 mg tablet (Tylenol Extra Strength) 250 mg PO ONCE PRN tab 02/13/20 [History Confirmed 08/20/21] apixaban 5 mg tablet (Eliquis) 5 mg PO BID #60 tab 02/13/21 [Rx Confirmed 08/20/21] calcium carbonate 600 mg(1,500 mg)-vitamin D3 800 unit chewable tablet (Caltrate 600 plus D) 1 tab PO DAILY 08/20/21 [History Confirmed 08/20/21] triamterene 75 mg-hydrochlorothiazide 50 mg tablet 1 tab PO DAILY 08/20/21 [History Confirmed 08/20/21] Active Medications Sodium Chloride (Nss 1000ml) 1,000 mls @ 150 mls/hr IV .Q6H40M JANY Stop: 08/21/21 00:24 Last Admin: 08/20/21 18:34 Dose: 150 mls/hr Documented by: Magnesium Sulfate/Dextrose (Magnesium Sulfate / D5w) 1 gm in 100 mls @ 50 mls/hr IV Q2H JANY Stop: 08/21/21 01:59 Last Admin: 08/20/21 19:28 Dose: 50 mls/hr Documented by: Metoprolol Tartrate (Metoprolol Tartrate 1 Mg/Ml Vial) 5 mg IV Q5M PRN PRN Reason: Tachycardia Stop: 09/19/21 18:18 Last Admin: 08/20/21 19:15 Dose: 5 mg Documented by: ECG Additional Comments: Atrial fibrillation with rapid ventricular response ST & T wave abnormality, consider inferior ischemia Abnormal ECG When compared with ECG of 23-JAN-2020 08:48, Significant changes have occurred 2030: Normal sinus rhythm Normal ECG When compared with ECG of 20-AUG-2021 18:10, (unconfirmed) Sinus rhythm has replaced Atrial fibrillation Vent. rate has decreased BY 77 BPM Non-specific change in ST segment in Inferior leads ST no longer depressed in Lateral leads T wave inversion no longer evident in Inferior leads Nonspecific T wave abnormality no longer evident in Lateral leads Code Status & VTE Plan Code Status CODE: FULL VTE: SCDs, hold on chemoprophylaxis until surgical evaluation VTE Prophylaxis Plan VTE Prophylaxis will be ordered: Yes Supervising Physician Co-Signing Physician Notes Attending Attestation & Admit Note: Pt seen/examined, chart reviewed, admission care plan d/w CYRIL Pichardo. I agree w/ the keane components of his documentation. Pleasant 81yo female with PAF on chronic eliquis (last dose this AM), HTN, hyperlipidemia - presents after having had a fall at home. Accidental, no presyncope or syncope, no cp/dyspnea/palpitations at time of event. Upon presentation in ER was found in rapid a.fib. x-rays c/w left hip fracture. PMH/PSH/allergies/meds/sochx/famhx - reviewed vitals -tachy, BP high, O2 sats lows 90s gen - obese, NAD eyes - strabismus R eye mouth - Mm slightly dry neck - no JVD heart - tachy, s1 s2, irregular lungs - cta b/l abd - slightly distended but NT, BS+ ext - left leg is mildly shortened and externally rotated; no peripheral edema; pulses 2+ b/l labs and imaging reviewed EKG - rapid a.fib A/P: 1. L hip fracture s/p fall 2. rapid a.fib 3. hypomagnesemia - likely 2nd to chronic HCTZ use 4. hyponatremia - likely 2nd to chronic HCTZ use 5. spontaneous conversion of rapid a.fib to NSR while awaiting admission in ER 6. HTN #1 - [facility] ortho consult; NPO after MN - but even if surgery was performed tomorrow afternoon it would still be <36 hours since her last dose (take AM of 08/20) and I'm uncertain, given 1/2 life of 12 hours of Eliquis, if OR is advisable then. Defer timing of ORIF to ortho/anesthesia. Check 25-OH vit D in am. Pain control, [place], fluids, bedrest. #2 - resolved. Keep mag near 2, K near 4. Cont BB. Hold Eliquis. #3 - replace, repeat level am. #4 - hydrate, hold HCTZ, bmp am. Mohamud Rocha MD PG Care Time/CCT Total # of Minutes Spent Total Time Spent with Patient: Total time spent is greater than 50% in coordination of care (as documented) at patient's floor/unit and/or counseling patient: Coding Level of Care Code 12570 Initial Inpt Care Lvl 3 Diagnoses Acute pain of left hip M25.552 Fall W19.XXXA Encounter type: initial encounter Atrial fibrillation I48.0 Atrial fibrillation type: paroxysmal Anticoagulant long-term use Z79.01 Hypertension I10 Hypertension type: essential hypertension Chronic kidney disease N18.9 Hyponatremia E87.1 Hypomagnesemia E83.42 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 M80.059A (1) Atrial fibrillation Atrial fibrillation type: paroxysmal Qualified Code(s): I48.0 - Paroxysmal atrial fibrillation (2) Hypertension Hypertension type: essential hypertension Qualified Code(s): I10 - Essential (primary) hypertension (3) Fall Encounter type: initial encounter Qualified Code(s): W19.XXXA - Unspecified fall, initial encounter
[2021-08-20] MEDS: MAGNESIUM SULFATE / D5W 1 GM/100 ML BAG IV SCH ×2 (19:28→20:44)
[2021-08-20] MEDS ORDERED: dilTIAZem HCl 5 MG/ML 5 ML VIAL IV STA (19:58)
[2021-08-20] MEDS ORDERED: LACTATED RINGER'S 1,000 ML IV ONE (20:07)
[2021-08-20] MEDS ORDERED: METOPROLOL TARTRATE 50 MG TAB PO STA (20:29)
[2021-08-20] MEDS ORDERED: NALOXONE HCL 0.4 MG/1 ML VIAL/CARP IV PRN (22:12)
[2021-08-20] MEDS ORDERED: oxyCODONE HCL IR 5 MG TAB (IMMEDIATE RELEASE) ONE (22:42)
[2021-08-20] MEDS ORDERED: MoRPHine SULFATE 2 MG/ML CARP IV PRN (23:00)
[2021-08-20] MEDS ORDERED: ALBUTEROL HFA 8 GM INHALER INH PRN (23:00)
[2021-08-20] MEDS ORDERED: bisacodyL 10 MG SUPP PR PRN (23:00)
[2021-08-20] MEDS: lisinopril 20 MG TAB PO SCH (23:36)
[2021-08-20] MEDS: DOCUSATE SODIUM/SENNA 50/8.6MG TAB PO SCH (23:36)
[2021-08-20] MEDS: SIMVASTATIN 20 MG TAB PO SCH (23:36)
[2021-08-21] MEDS: MAGNESIUM SULFATE / D5W 1 GM/100 ML BAG IV SCH (00:25)
[2021-08-21] MEDS: oxyCODONE HCL IR 5 MG TAB (IMMEDIATE RELEASE) PO PRN ×3 (04:57→18:14)
[2021-08-21 06:28] LABS: Basophils # (auto) 0.02 K/uL (0-0.2); Basophils % (auto) 0.3 %; Eosinophils # (auto) 0.17 K/uL (0-0.5); Eosinophils % (auto) 2.2 %; Hematocrit (blood only) 35.4 % (37-47); Hemoglobin 12.2 g/dL (12.0-16.0); Immature Granulocytes # (auto) 0.01 K/uL (0.00-0.02); Immature Granulocytes % (auto) 0.1 %; Lymphocytes # (auto) 0.87 K/uL (1.2-3.4); Lymphocytes % (auto) 11.4 %; Mean Corpuscular Hemoglobin 29.6 pg (25-34); Mean Corpuscular Hgb Conc 34.5 g/dL (32-36); Mean Corpuscular Volume 85.9 fL (80-100); Mean Platelet Volume 8.5 fL (7.4-10.4); Monocytes # (auto) 0.45 K/uL (0.11-0.59); Monocytes % (auto) 5.9 %; Neutrophils # (auto) 6.09 K/uL (1.4-6.5); Neutrophils % (auto) 80.1 %; Platelet Count 217 K/uL (130-400); RDW Coefficient of Variation 13.4 % (11.5-14.5); RDW Standard Deviation 42.5 fL (36.4-46.3); Red Blood Count 4.12 M/uL (4.2-5.4); White Blood Count 7.61 K/uL (4.8-10.8)
[2021-08-21 06:55] LABS: BUN Creatinine Ratio 18.5 (10-20); Est GFR (African American) 62.6 ml/min; Magnesium 2.2 mg/dl (1.8-2.4); Potassium 3.6 mmol/L (3.5-5.1)
[2021-08-21] MEDS: amLODIPine BESYLATE 5 MG TAB PO SCH (08:56)
[2021-08-21] MEDS: METOPROLOL TARTRATE 50 MG TAB PO SCH ×2 (08:56→20:55)
[2021-08-21] MEDS: lisinopril 20 MG TAB PO SCH ×2 (08:56→20:55)
--- NOTE | 2021-08-21 10:47 | Electrocardiogram Report ---
Test Reason : Blood Pressure : / mmHG Vent. Rate : 157 BPM Atrial Rate : 144 BPM P-R Int : 000 ms QRS Dur : 062 ms QT Int : 254 ms P-R-T Axes : 000 012 -62 degrees QTc Int : 410 ms Poor data quality, interpretation may be adversely affected Atrial fibrillation with rapid ventricular response Abnormal ECG Confirmed by Norbert Eden ([id number]) on 08/21/2021 10:46:56 AM Referred By: REFERRED SELF Confirmed By:Ankit Eden
--- NOTE | 2021-08-21 10:53 | Electrocardiogram Report ---
Test Reason : Blood Pressure : / mmHG Vent. Rate : 064 BPM Atrial Rate : 064 BPM P-R Int : 168 ms QRS Dur : 082 ms QT Int : 412 ms P-R-T Axes : 061 007 016 degrees QTc Int : 425 ms Poor data quality, interpretation may be adversely affected Normal sinus rhythm Minimal voltage criteria for LVH, may be normal variant Borderline ECG When compared with ECG of 20-AUG-2021 20:41, (unconfirmed) No significant change was found Confirmed by Norbert Eden ([id number]) on 08/21/2021 10:52:54 AM Referred By: REFERRED SELF Confirmed By:Ankit Eden
--- NOTE | 2021-08-21 11:37 | Anesthesiology Consultation ---
Date of Service August 21, 2021 Assessment & Plan Chart Review Chart Review: Pending: Refer to Additional Notes / Consult section (pt needs Na>129) and Patient NOT seen in Pre Admission Testing History Height/Weight Height: 5 ft 4 in Weight: 83.7 kg Allergies Allergy/AdvReac Type Severity Reaction Status Date / Time Penicillins Allergy Unknown Verified 08/20/21 18:18 Sulfa (Sulfonamide Allergy Unknown Verified 08/20/21 18:18 Antibiotics) amoxicillin AdvReac Hypotension Verified 08/20/21 18:18 Medications Home Medications Medication Instructions Recorded Confirmed Last Taken albuterol sulfate 90 mcg/actuation 1 - 2 puff INHALATION DAILY PRN 01/20/20 08/20/21 Unknown aerosol inhaler (Ventolin HFA) amlodipine 2.5 mg tablet 2.5 mg PO DAILY 01/20/20 08/20/21 Unknown lisinopril 20 mg tablet 20 mg PO BID 01/20/20 08/20/21 Unknown metoprolol tartrate 50 mg tablet 50 mg PO BID 01/20/20 08/20/21 Unknown simvastatin 20 mg tablet 20 mg PO HS 01/20/20 08/20/21 Unknown acetaminophen 500 mg tablet 250 mg PO ONCE PRN tab 02/13/20 08/20/21 Unknown (Tylenol Extra Strength) apixaban 5 mg tablet (Eliquis) 5 mg PO BID #60 tab 02/13/21 08/20/21 Unknown calcium carbonate 600 mg(1,500 1 tab PO DAILY 08/20/21 08/20/21 Unknown mg)-vitamin D3 800 unit chewable tablet (Caltrate 600 plus D) triamterene 75 1 tab PO DAILY 08/20/21 08/20/21 Unknown mg-hydrochlorothiazide 50 mg tablet Active Medications Generic Name Dose Route Start Last Admin Trade Name Freq PRN Reason Stop Dose Admin Amlodipine Besylate 2.5 mg 08/21/21 09:00 08/21/21 08:56 Amlodipine Besylate 5 Mg Tab PO 09/20/21 08:59 2.5 mg DAILY JANY Administration Lisinopril 20 mg 08/20/21 23:00 08/21/21 08:56 Lisinopril 20 Mg Tab PO 09/19/21 22:59 20 mg BID JANY Administration Metoprolol Tartrate 50 mg 08/21/21 09:00 08/21/21 08:56 Metoprolol Tartrate 50 Mg Tab PO 09/20/21 08:59 50 mg BID JANY Administration Morphine Sulfate 2 mg 08/20/21 23:00 08/20/21 23:28 Morphine Sulfate 2 Mg/Ml Carp IV 09/03/21 22:59 1 mg Q3H PRN Administration severe pain or not controlled Oxycodone HCl 5 mg 08/20/21 23:00 08/21/21 08:59 Oxycodone Hcl Ir 5 Mg Tab (Immediate Release) PO 09/03/21 22:59 5 mg Q4H PRN Administration MODERATE Pain (4,5,6) & Pre PT Senna/Docusate Sodium 2 tab 08/20/21 23:00 08/20/21 23:36 Docusate Sodium/Senna 50/8.6mg Tab PO 09/19/21 22:59 2 tab HS JANY Administration Simvastatin 20 mg 08/20/21 23:00 08/20/21 23:36 Simvastatin 20 Mg Tab PO 09/19/21 22:59 20 mg HS JANY Administration Past Medical History Medical History Anticoagulant long-term use Atrial fibrillation Chronic kidney disease Dyslipidemia Hypertension Past Family History Family History Other Diabetes Hypertension Past Surgical History Surgical History H/O wisdom tooth extraction History of tonsillectomy Social History Smoking Status: Never smoker Hx Alcohol Use: No Hx Substance Use: No Physical Exam Vital Signs Last Vital Signs Temp 36.9 C 08/21/21 07:33 Pulse 65 08/21/21 07:33 Resp 20 08/21/21 07:33 BP 146/70 H 08/21/21 07:33 Pulse Ox 93 08/21/21 07:33 Testing Laboratory Results 08/21/21 05:58 08/21/21 05:58 PT 9.8 Seconds (9.0-12.0) 08/20/21 18:10 INR 1.0 (0.9-1.1) 08/20/21 18:10 APTT 28.2 Seconds (21.0-31.0) 08/20/21 18:10 Urine Color Yellow 08/20/21 18:20 Urine Appearance Clear (Clear) 08/20/21 18:20 Urine pH 7.5 (4.5-7.5) 08/20/21 18:20 Ur Specific [place] 1.008 (1.000-1.030) 08/20/21 18:20 Urine Protein Negative (Negative) 08/20/21 18:20 Urine Glucose (UA) Negative (Negative) 08/20/21 18:20 Urine Ketones Negative (Negative) 08/20/21 18:20 Urine Nitrite Negative (Negative) 08/20/21 18:20 Ur Leukocyte Esterase Negative (Negative) 08/20/21 18:20 Urine WBC (Auto) 1-5 /hpf (0-5) 08/20/21 18:20 Urine RBC (Auto) 0-4 /hpf (0-4) 08/20/21 18:20 U Hyaline Cast (Auto) 0 /lpf (0-5) 08/20/21 18:20 U Epithel Cells (Auto) 0-5 /lpf (0-5) 08/20/21 18:20 Urine Bacteria (Auto) Negative (Negative) 08/20/21 18:20 Blood Type O Positive 08/20/21 18:18 Antibody Screen NEGATIVE 08/20/21 18:18
--- NOTE | 2021-08-21 12:46 | Hospitalist Progress Note ---
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 Pt remains NPO in anticipation of surgical intervention; however, last dose of Eliquis yesterday morning, would need to wait 48 hours prior to surgery. She would be candidate for surgical intervention after tomorrow morning. Will order her a diet for today and make her NPO after MN tonight. * Vitamin D level ordered * Continue pain control as ordered * Bedrest * UOC on consult * [place] inserted * PT/OT eval following surgery * CM consult for discharge planning - ?rehab (2) Fall: Plan: * On to left hip, as per above (3) Atrial fibrillation: Plan: Afib with RVR s/p conversion back to NSR. 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 Remains held for anticipated surgical intervention. May resume 8 hours after surgery. (5) Hypertension: Plan: * Triamterene/HCTZ held last PM for tonight with hyponatremia and mild hypovolemia * Continued on amlodopine * Contine Metoprolol * Continue Lisinopril - will need to be held POD#1 to avoid STACY/hypotension if pt receives spinal anesthesia (6) Chronic kidney disease: Plan: * CKD stage 3, creat at baseline (7) Hyponatremia: Plan: * Na+ down to 124 today, down from 130, with + fluid balance. * No further IVF at this time. * Triamterene/HCTZ on hold. * Repeat BMP this afternoon (8) Hypomagnesemia: Plan: * Replaced/resolved. (9) Right shoulder pain: Plan: * Obtain portable xray to eval right shoulder pain complaint Admission and Anticipated Discharge Date Admission Date: August 20, 2021 Subjective Mrs. Vigil was seen on rounds today. She remains hospitalized with acute L hip femoral neck fx s/p GLF. Pt also w/ a h/o Afib, was in RVR in ED and coverted back into NSR at 2030 on 08/20. On rounds, pt appears comfortable, she is resting in bed. Denies uncontrolled L hip pain. Did verbalize she was having some R shoulder pain to RN but not to me personally. She does admit to hitting her head when she fell, she is on DOAC (Eliquis for PAF), head CT in ED was negative. Pt denies headache. She denies cp, dyspnea, n/v/d, f/c, or gu symptoms. No other issues reported by RN. Review of Systems Review of Systems: All systems reviewed & are unremarkable except as noted in HPI & below Musculoskeletal: + joint pain (L hip, controlled with medication) Neurologic: no syncope and no headache(s) Physical Exam Constitutional: WD/WN, vitals as above Eyes: PERRL, conjunctivae normal, anicteric sclerae Respiratory: normal respiratory effort, lungs clear to auscultation Cardiovascular: RRR, no murmur, no edema Gastrointestinal (Abdomen): normal bowel sounds, soft, nontender, no hepatosplenomegaly Musculoskeletal: LLE slight external rotation and mildly shortened Skin: no rashes, warm and dry Psychiatric: A+Ox3, euthymic affect Results & Data Results & Data ([facility]) Vital Signs (Past 12 Hours) Vital Signs Temp Pulse Pulse Resp BP BP Pulse Ox 08/21/21 11:59 36.6 C 59 L 20 127/71 90 08/21/21 07:33 36.9 C 65 20 146/70 H 93 08/21/21 07:21 62 08/21/21 04:01 36.6 C 72 20 146/78 H 92 Laboratory Results 08/21/21 05:58 08/21/21 05:[address] 08/20/21 16:[address] DOSE: 537.48 mGy.cm HISTORY: fall, on Eliquis TECHNIQUE: Multiaxial CT images of the head were performed without the use of intravenous contrast. Automated exposure control was utilized for this study. A dose lowering technique was utilized adhering to the principles of ALARA. Comparison: None. Findings: Complete opacification of the visualized left maxillary sinus, left anterior ethmoid air cells, and left frontal sinus. Partial opacification of the right sphenoid sinus. The mastoid air cells are clear. The calvarium and skull base are intact. The ventricles and sulci are within normal limits. There is no mass, hematoma, midline shift, or acute infarct. Impression: No acute intracranial abnormality. Chronic sinus disease as described above. ACT 112: Negative or not required by law. Electronically signed by: Gio Grant M.D. 08/20/2021 5:18 PM Hip/Pelvis X-Ray 08/20/21 16:51 XR hip LT 2V w pelvis CLINICAL HISTORY: fall, left hip pain COMPARISON STUDY: None. FINDINGS: Slightly impacted subcapital left femoral neck fracture. No dislocation. The visualized pelvic bones and right hip are intact. IMPRESSION: Slightly impacted subcapital left femoral neck fracture. ACT 112: Negative or not required by law. Electronically signed by: Gio Grnat M.D. 08/20/2021 5:30 PM Chest X-Ray 08/20/21 17:42 XR chest 1V portable HISTORY: Hip fracture. Fall. COMPARISON: Chest 01/23/2020. FINDINGS: The lungs are clear. Cardiac silhouette is normal in size. No pleural effusions. No pneumothorax. Stable prominence of the central pulmonary arteries. Degenerative changes again noted within the shoulders. No acute fractures within the visualized osseous structures of the chest. IMPRESSION: No acute process. ACT 112: Negative or not required by law. Electronically signed by: Gio Grant M.D. 08/20/2021 6:48 PM Medications Administered Current Medications Acetaminophen (Acetaminophen 325 Mg Tab) 650 mg PO Q6H PRN PRN Reason: pain/fever Stop: 09/19/21 22:59 Albuterol (Albuterol Hfa 8 Gm Inhaler) 2 puffs INH Q6R PRN PRN Reason: sob/wheezing Stop: 09/19/21 22:59 Amlodipine Besylate (Amlodipine Besylate 5 Mg Tab) 2.5 mg PO DAILY JANY Stop: 09/20/21 08:59 Last Admin: 08/21/21 08:56 Dose: 2.5 mg Bisacodyl (Bisacodyl 10 Mg Supp) 10 mg OR DAILY PRN PRN Reason: Constipation Lisinopril (Lisinopril 20 Mg Tab) 20 mg PO BID JANY Stop: 09/19/21 22:59 Last Admin: 08/21/21 08:56 Dose: 20 mg Magnesium Hydroxide (Magnesium Hydroxide Susp 30 Ml Udc) 30 ml PO DAILY PRN PRN Reason: Constipation Stop: 09/19/21 22:59 Metoprolol Tartrate (Metoprolol Tartrate 50 Mg Tab) 50 mg PO BID JANY Stop: 09/20/21 08:59 Last Admin: 08/21/21 08:56 Dose: 50 mg Metoprolol Tartrate (Metoprolol Tartrate 1 Mg/Ml Vial) 5 mg IV Q2H PRN PRN Reason: HR > 110 Stop: 09/19/21 22:11 Morphine Sulfate (Morphine Sulfate 2 Mg/Ml Carp) 2 mg IV Q3H PRN PRN Reason: severe pain or not controlled Stop: 09/03/21 22:59 Last Admin: 08/20/21 23:28 Dose: 1 mg Naloxone HCl (Naloxone Hcl 0.4 Mg/1 Ml Vial/Carp) 0.1 mg IV UD PRN PRN Reason: Opiate Overdose Stop: 09/19/21 22:11 Oxycodone HCl (Oxycodone Hcl Ir 5 Mg Tab (Immediate Release)) 5 mg PO Q4H PRN PRN Reason: MODERATE Pain (4,5,6) & Pre PT Stop: 09/03/21 22:59 Last Admin: 08/21/21 08:59 Dose: 5 mg Senna/Docusate Sodium (Docusate Sodium/Senna 50/8.6mg Tab) 2 tab PO HS [facility] Stop: 09/19/21 22:59 Last Admin: 08/20/21 23:36 Dose: 2 tab Simvastatin (Simvastatin 20 Mg Tab) 20 mg PO HS [facility] Stop: 09/19/21 22:59 Last Admin: 08/20/21 23:36 Dose: 20 mg PG Care Time/CCT Total # of Minutes Spent Total Time Spent with Patient: Total time spent is greater than 50% in coordination of care (as documented) at patient's floor/unit and/or counseling patient: C[place] [address] Subseq Hosp Care Lvl 2 Patient Type Established History Expanded Problem Focused Exam Expanded Problem Focused Diagnoses 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 M80.059A Fall W19.XXXA Encounter type: initial encounter Atrial fibrillation I48.0 Atrial fibrillation type: paroxysmal Anticoagulant long-term use Z79.01 Hypertension I10 Hypertension type: essential hypertension Chronic kidney disease N18.9 Hyponatremia E87.1 Hypomagnesemia E83.42 Right shoulder pain M25.511 (1) Fall Encounter type: initial encounter Qualified Code(s): W19.XXXA - Unspecified fall, initial encounter (2) Atrial fibrillation Atrial fibrillation type: paroxysmal Qualified Code(s): I48.0 - Paroxysmal atrial fibrillation (3) Hypertension Hypertension type: essential hypertension Qualified Code(s): I10 - Essential (primary) hypertension
[2021-08-21 13:22] LABS: BUN Creatinine Ratio 18.3 (10-20); Calcium 9.2 mg/dl (8.5-10.1); Creatinine Clr Calc Pharmacy 45.1 ml/min; Est GFR (African American) 61.1 ml/min; Est GFR (Non-African American) 52.7 ml/min; Potassium 3.9 mmol/L (3.5-5.1)
--- NOTE | 2021-08-21 13:38 | XRay Report ---
XR shoulder RT min 2V routine HISTORY: 81 years-old Female r shoulder pain s/p fall acute right shoulder pain with limited range o f motion COMPARISON: Chest radiograph of same day TECHNIQUE: 3 views of the right shoulder FINDINGS: Limited study secondary to patient positioning. Moderate AC joint with severe glenohumeral osteoarthr itis. Evaluation for joint subluxation is limited secondary to positioning. No definite acute fractur e or dislocation. Cardiomegaly. IMPRESSION: 1. Limited exam secondary to positioning. 2. No definite acute fracture or dislocation identified considering limitations of the study. 3. Moderate AC joint with severe glenohumeral osteoarthritis. ACT 112: Negative or not required by law. The above report was generated using voice recognition software. It may contain grammatical, syntax o r spelling errors. Electronically signed by: Ariel Contreras M.D. 08/21/2021 1:37 PM
[2021-08-21] MEDS ORDERED: FUROSEMIDE 40 MG/4 ML VIAL IV ONE (15:49)
[2021-08-21] MEDS ORDERED: MICONAZOLE NITRATE POWDER 43 GM EXT PRN (17:10)
[2021-08-21] MEDS ORDERED: ONDANSETRON INJ 2 MG/ML 2 ML VIAL IV PRN (17:38)
--- NOTE | 2021-08-21 17:51 | Orthopedic Consultation ---
Date of Consultation August 21, 2021 Assessment & Plan (1) Subcapital fracture of left femur: I discussed the history of the patient's left hip pain. She states she has not had previous hip pain or left groin pain at any time previously. The first onset of any pain within the left hip is after the fall yesterday. Despite her having arthritic changes on x-ray, since she is not having any pain in the hip prior to her fall, we will proceed with open fixation of the left hip fracture with 3 cannulated screws. All potential risks, benefits, complications, alternatives, and rehab have been discussed with the patient and she wishes to proceed. Her Eliquis has been held and she should be able to proceed with surgery tomorrow afternoon. We will restart her Eliquis postoperatively for DVT prophylaxis. Thank you for consultation. We will follow with the patient postoperatively. History of Present Illness Reason for Consultation: Left hip pain Attending Physician: Greyson Paez MD History of Present Illness This is a patient who was at her home yesterday after getting home from grocery shopping. Her had turned and bumped into her and she lost her balance and fell. She fell onto her left side on the concrete. She had minimal pain but because of her history of chronic Eliquis use, they called EMS. She was brought to [facility] ER where x-rays were performed. She was noted to have an impacted, nondisplaced subcapital left hip fracture. She is currently being set up for surgical treatment. Allergies Allergy/AdvReac Type Severity Reaction Status Date / Time Penicillins Allergy Unknown Verified 08/20/21 18:18 Sulfa (Sulfonamide Allergy Unknown Verified 08/20/21 18:18 Antibiotics) amoxicillin AdvReac Hypotension Verified 08/20/21 18:18 Home Medications Medication Instructions Recorded Confirmed Type albuterol sulfate 90 mcg/actuation 1 - 2 puff INHALATION DAILY PRN 01/20/20 08/20/21 History aerosol inhaler (Ventolin HFA) amlodipine 2.5 mg tablet 2.5 mg PO DAILY 01/20/20 08/20/21 History lisinopril 20 mg tablet 20 mg PO BID 01/20/20 08/20/21 History metoprolol tartrate 50 mg tablet 50 mg PO BID 01/20/20 08/20/21 History simvastatin 20 mg tablet 20 mg PO HS 01/20/20 08/20/21 History acetaminophen 500 mg tablet 250 mg PO ONCE PRN tab 02/13/20 08/20/21 History (Tylenol Extra Strength) apixaban 5 mg tablet (Eliquis) 5 mg PO BID #60 tab 02/13/21 08/20/21 Rx calcium carbonate 600 mg(1,500 1 tab PO DAILY 08/20/21 08/20/21 History mg)-vitamin D3 800 unit chewable tablet (Caltrate 600 plus D) triamterene 75 1 tab PO DAILY 08/20/21 08/20/21 History mg-hydrochlorothiazide 50 mg tablet Patient History Medical History Anticoagulant long-term use Atrial fibrillation Chronic kidney disease Dyslipidemia Hypertension Surgical History H/O wisdom tooth extraction History of tonsillectomy Family History Other Diabetes Hypertension Social History (Updated 08/20/21 @ 22:55 by Mohamud Rocha) Smoking Status: Never smoker Hx Alcohol Use: No Hx Substance Use: No Preferred Language: Bolivian Communication Ability: Effective Tube Draw Helper Required: No Beliefs That Will Affect Care: None marital status: Current Living Situation: Spouse Current Living Situation Comment: [place] current occupational status: retired 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 [place] Other Information That Helps Us Care for You: No Feels Safe at Home: Yes Safety Concerns: Feels Safe At This Time Assistive Devices: Cane and Walker Physical Exam Constitutional: WD/WN, vitals as above no acute distress (Patient is sitting in bed eating dinner) ENMT: external ear and nose normal, oropharynx normal Neck: trachea midline Musculoskeletal: Hip: + limited ROM of hip (Left hip), + joint line tenderness (Left hip) and + log roll test positive (Left); no skin erythema and no ecchymosis Skin: no rashes, warm and dry Trauma: no evidence of skin trauma Neurologic: normal touch/pain/proprioception Psychiatric: A+Ox3, euthymic affect Speech: normal rate/rhythm/volume of speech Results & Data ([facility]) Vital Signs (Past 12 Hours) Vital Signs Temp Pulse Pulse Resp BP BP Pulse Ox 08/21/21 15:31 63 08/21/21 15:07 36.8 C 68 20 145/67 H 90 08/21/21 11:59 36.6 C 59 L 20 127/71 90 08/21/21 07:33 36.9 C 65 20 146/70 H 93 08/21/21 07:21 62
[2021-08-21] MEDS: DOCUSATE SODIUM/SENNA 50/8.6MG TAB PO SCH (20:55)
[2021-08-21] MEDS: SIMVASTATIN 20 MG TAB PO SCH (20:56)
[2021-08-22 07:32] LABS: Basophils # (auto) 0.03 K/uL (0-0.2); Basophils % (auto) 0.4 %; Eosinophils # (auto) 0.29 K/uL (0-0.5); Eosinophils % (auto) 3.4 %; Hematocrit (blood only) 34.8 % (37-47); Hemoglobin 12.2 g/dL (12.0-16.0); Immature Granulocytes # (auto) 0.02 K/uL (0.00-0.02); Immature Granulocytes % (auto) 0.2 %; Lymphocytes # (auto) 0.98 K/uL (1.2-3.4); Lymphocytes % (auto) 11.5 %; Mean Corpuscular Hemoglobin 29.5 pg (25-34); Mean Corpuscular Hgb Conc 35.1 g/dL (32-36); Mean Corpuscular Volume 84.1 fL (80-100); Mean Platelet Volume 8.6 fL (7.4-10.4); Monocytes # (auto) 0.89 K/uL (0.11-0.59); Monocytes % (auto) 10.5 %; Neutrophils # (auto) 6.28 K/uL (1.4-6.5); Platelet Count 216 K/uL (130-400); RDW Coefficient of Variation 13.6 % (11.5-14.5); RDW Standard Deviation 41.2 fL (36.4-46.3); Red Blood Count 4.14 M/uL (4.2-5.4); White Blood Count 8.49 K/uL (4.8-10.8)
[2021-08-22] MEDS: METOPROLOL TARTRATE 50 MG TAB PO SCH (08:14)
[2021-08-22] MEDS: amLODIPine BESYLATE 5 MG TAB PO SCH (08:15)
[2021-08-22] MEDS: lisinopril 20 MG TAB PO SCH ×2 (08:16→22:10)
[2021-08-22 08:21] LABS: BUN Creatinine Ratio 16.9 (10-20); Calcium 9.4 mg/dl (8.5-10.1); Creatinine Clr Calc Pharmacy 40.4 ml/min; Est GFR (African American) 53.2 ml/min; Est GFR (Non-African American) 45.9 ml/min; Magnesium 1.6 mg/dl (1.8-2.4); Potassium 3.3 mmol/L (3.5-5.1)
[2021-08-22] MEDS ORDERED: FUROSEMIDE INJ 20 MG/2 ML VIAL IV ONE (09:45)
[2021-08-22] MEDS ORDERED: POTASSIUM CHLORIDE 20 MEQ/15 ML UDC PO ONE (10:00)
[2021-08-22] MEDS: MAGNESIUM SULFATE / D5W 1 GM/100 ML BAG IV SCH ×2 (10:10→12:11)
--- NOTE | 2021-08-22 13:29 | Hospitalist Progress Note ---
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 Pt for OR this afternoon with Dr. Arenas for surgical repair. * Vitamin D level ordered - remains pending * Continue pain control as ordered * Bedrest * UOC on consult * [place] inserted * PT/OT eval following surgery * CM consult for discharge planning - ?rehab (2) Fall: Plan: * On to left hip, as per above (3) Atrial fibrillation: Plan: Afib with RVR s/p conversion back to NSR and now back in Fib rate 110-130s. RN to give IV Lopressor 5mg x1 now. 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 Remains held for anticipated surgical intervention. May resume 8 hours after surgery as long as hemostasis achieved. (5) Hypertension: Plan: BP controlled. * Triamterene/HCTZ on hold * Continued on amlodopine * Contine Metoprolol * Continue Lisinopril - hold POD#1 to avoid STACY/hypotension if pt receives spinal anesthesia (6) Chronic kidney disease: Plan: * CKD stage 3, creat at baseline (7) Hyponatremia: Plan: * Na+ slowly uptrending with diuresis. * No further IVF at this time. * Triamterene/HCTZ on hold. * Send urine and serum osmolality and random urine sodium (8) Hypomagnesemia: Plan: * 1.6 on AM labs, Mag Riders ordered. * Will start on daily supplementation. * Repeat labs in AM (9) Right shoulder pain: Plan: * Arthritic changes, nothing acute Admission and Anticipated Discharge Date Admission Date: August 20, 2021 Subjective Mrs. Vigil was seen on rounds today. She remains hospitalized with acute L hip femoral neck fx s/p GLF. Pt also w/ a h/o Afib, was in RVR in ED and converted back into NSR at 2030 on 08/20. On rounds, pt appears comfortable, she is resting in bed. Denies uncontrolled L hip pain. She does admit to hitting her head when she fell, she is on DOAC (Eliquis for PAF), head CT in ED was negative. Pt denies headache. She denies cp, dyspnea, n/v/d, f/c, gu symptoms (sutherland in place), or uncontrolled hip pain. Had c/o R shoulder pain yesterday to RN, xray ordered, no acute pathology (arthritic changes). For OR repair of hip fx this afternoon with Dr. Arenas. Per nursing, pt back in Afib, EKG ordered. Review of Systems Review of Systems: CONSTITUTIONAL: Denies weight loss/gain, fever and chills, fatigue, malaise, generalized weakness. HEENT: Denies changes in vision and hearing. RESPIRATORY: Denies SOB, cough, wheezing. CV: Denies palpitations, CP, lower extremity edema, orthopnea, PND. GI: Denies abdominal pain, nausea, vomiting and diarrhea. : Denies dysuria and urinary frequency, urgency, hesitancy. MUSCULOSKELETAL: Denies myalgia and joint pain. +L hip fx, reports stiffness SKIN: Denies rash and pruritus. NEUROLOGICAL: Denies headache, syncope, focal weakness, numbness, tingling. PSYCHIATRIC: Denies recent changes in mood. Denies anxiety and depression. Physical Exam Physical Exam: GENERAL: 81 yo elderly obese WF, pleasant. NAD. LUNGS: Clear to auscultation bilaterally. No accessory muscle use. No W/R/R. CARDIOVASCULAR: Regular rate and rhythm (at time of exam). No M/G/R. No JVD. ABDOMEN: Soft, non-tender and non-distended. No palpable masses. Bowel sounds normoactive x 4 quad. EXTREMITIES: No edema. Non-tender. Peripheral pulses +2/4. LLE slight external rotation and shortened. NEUROLOGIC: A&O x3. PSYCHIATRIC: Cooperative. Appropriate mood and affect. SKIN: Warm, dry, intact. No rashes or lesions. Results & Data Results & Data ([facility]) Vital Signs (Past 12 Hours) Vital Signs Temp Pulse Pulse Resp BP Pulse Ox 08/22/21 11:07 37.5 C 72 20 135/75 91 08/22/21 07:50 37.2 C 77 20 148/77 H 90 08/22/21 07:00 78 08/22/21 02:55 37.4 C 74 16 146/76 H 90 Laboratory Results Laboratory Results - last 24 hr 08/21/21 08/22/21 08/22/21 05:58 06:36 06:36 WBC 8.49 RBC 4.14 L Hgb 12.2 Hct 34.8 L MCV 84.1 MCH 29.5 MCHC 35.1 RDW Std Deviation 41.2 RDW Coeff of Anastasiya 13.6 Plt Count 216 MPV 8.6 Immature Gran % (Auto) 0.2 Neut % (Auto) 74.0 Lymph % (Auto) 11.5 Leon % (Auto) 10.5 Eos % (Auto) 3.4 Baso % (Auto) 0.4 Neut # (Auto) 6.28 Lymph # (Auto) 0.98 L Leon # (Auto) 0.89 H Eos # (Auto) 0.29 Baso # (Auto) 0.03 Immature Gran # (Auto) 0.02 Sodium 126 L Potassium 3.3 L D Chloride 89 L Carbon Dioxide 27 Anion Gap 10.0 BUN 19 H Creatinine 1.11 Est Cr Clr Drug Dosing 40.4 Est GFR ( Amer) 53.2 Est GFR (Non-Af Amer) 45.9 BUN/Creatinine Ratio 16.9 Glucose 100 H Calcium 9.4 Magnesium 1.6 L 25-OH Vitamin D Total 70.0 08/22/21 12:36 WBC RBC Hgb Hct MCV MCH MCHC RDW Std Deviation RDW Coeff of Anastasiya Plt Count MPV Immature Gran % (Auto) Neut % (Auto) Lymph % (Auto) Leon % (Auto) Eos % (Auto) Baso % (Auto) Neut # (Auto) Lymph # (Auto) Leon # (Auto) Eos # (Auto) Baso # (Auto) Immature Gran # (Auto) Sodium 130 L Potassium 3.7 Chloride 91 L Carbon Dioxide 28 Anion Gap 11.0 BUN 18 Creatinine 1.19 Est Cr Clr Drug Dosing 37.7 Est GFR ( Amer) 48.9 Est GFR (Non-Af Amer) 42.2 BUN/Creatinine Ratio 15.2 Glucose 104 H Calcium 9.8 Magnesium 25-OH Vitamin D Total Diagnostic Findings None today Medications Administered Current Medications Acetaminophen (Acetaminophen 325 Mg Tab) 650 mg PO Q6H PRN PRN Reason: pain/fever Stop: 09/19/21 22:59 Albuterol (Albuterol Hfa 8 Gm Inhaler) 2 puffs INH Q6R PRN PRN Reason: sob/wheezing Stop: 09/19/21 22:59 Amlodipine Besylate (Amlodipine Besylate 5 Mg Tab) 2.5 mg PO DAILY [facility] Stop: 09/20/21 08:59 Last Admin: 08/22/21 08:15 Dose: 2.5 mg Bisacodyl (Bisacodyl 10 Mg Supp) 10 mg AK DAILY PRN PRN Reason: Constipation Stop: 09/19/21 22:59 Magnesium Sulfate/Dextrose (Magnesium Sulfate / D5w) 1 gm in 100 mls @ 50 mls/hr IV Q2H JANY Stop: 08/22/21 13:44 Last Admin: 08/22/21 10:10 Dose: 50 mls/hr Lisinopril (Lisinopril 20 Mg Tab) 20 mg PO BID [facility] Stop: 09/19/21 22:59 Last Admin: 08/22/21 08:16 Dose: 20 mg Magnesium Hydroxide (Magnesium Hydroxide Susp 30 Ml Udc) 30 ml PO DAILY PRN PRN Reason: Constipation Stop: 09/19/21 22:59 Metoprolol Tartrate (Metoprolol Tartrate 50 Mg Tab) 50 mg PO BID [facility] Stop: 09/20/21 08:59 Last Admin: 08/22/21 08:14 Dose: 50 mg Documented by: Metoprolol Tartrate (Metoprolol Tartrate 1 Mg/Ml Vial) 5 mg IV Q2H PRN PRN Reason: HR > 110 Stop: 09/19/21 22:11 Miconazole Nitrate (Miconazole Nitrate Powder 43 Gm) 1 appln EXT PRN PRN PRN Reason: Affected Skin Folds Stop: 09/20/21 17:09 Last Admin: 08/21/21 20:56 Dose: 1 appln Morphine Sulfate (Morphine Sulfate 2 Mg/Ml Carp) 2 mg IV Q3H PRN PRN Reason: severe pain or not controlled Stop: 09/03/21 22:59 Last Admin: 08/20/21 23:28 Dose: 1 mg Naloxone HCl (Naloxone Hcl 0.4 Mg/1 Ml Vial/Carp) 0.1 mg IV UD PRN PRN Reason: Opiate Overdose Stop: 09/19/21 22:11 Ondansetron HCl (Ondansetron Inj 2 Mg/Ml 2 Ml Vial) 4 mg IV Q6H PRN PRN Reason: Nausea And Vomiting Stop: 09/20/21 17:37 Last Admin: 08/21/21 18:14 Dose: 4 mg Oxycodone HCl (Oxycodone Hcl Ir 5 Mg Tab (Immediate Release)) 5 mg PO Q4H PRN PRN Reason: MODERATE Pain (4,5,6) & Pre PT Stop: 09/03/21 22:59 Last Admin: 08/21/21 18:14 Dose: 5 mg Senna/Docusate Sodium (Docusate Sodium/Senna 50/8.6mg Tab) 2 tab PO HS JANY Stop: 09/19/21 22:59 Last Admin: 08/21/21 20:55 Dose: 2 tab Simvastatin (Simvastatin 20 Mg Tab) 20 mg PO HS [facility]ANY Stop: 09/19/21 22:59 Last Admin: 08/21/21 20:56 Dose: 20 mg PG Care Time/CCT Total # of Minutes Spent Total Time Spent with Patient: Total time spent is greater than 50% in coordination of care (as documented) at patient's floor/unit and/or counseling patient: Coding Level of Care Code 86304 Subseq Hosp Care Lvl 2 Diagnoses 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 M80.059A Fall W19.XXXA Encounter type: initial encounter Atrial fibrillation I48.0 Atrial fibrillation type: paroxysmal Anticoagulant long-term use Z79.01 Hypertension I10 Hypertension type: essential hypertension Chronic kidney disease N18.9 Hyponatremia E87.1 Hypomagnesemia E83.42 Right shoulder pain M25.511 (1) Fall Encounter type: initial encounter Qualified Code(s): W19.XXXA - Unspecified fall, initial encounter (2) Atrial fibrillation Atrial fibrillation type: paroxysmal Qualified Code(s): I48.0 - Paroxysmal atrial fibrillation (3) Hypertension Hypertension type: essential hypertension Qualified Code(s): I10 - Essential (primary) hypertension
[2021-08-22 13:32] LABS: BUN Creatinine Ratio 15.2 (10-20); Calcium 9.8 mg/dl (8.5-10.1); Creatinine Clr Calc Pharmacy 37.7 ml/min; Est GFR (African American) 48.9 ml/min; Est GFR (Non-African American) 42.2 ml/min; Potassium 3.7 mmol/L (3.5-5.1)
[2021-08-22] MEDS: METOPROLOL TARTRATE 1 MG/ML VIAL IV PRN ×2 (13:44→15:48)
[2021-08-22] MEDS ORDERED: dilTIAZem HCl 5 MG/ML 5 ML VIAL IV STA (15:46)
[2021-08-22] MEDS ORDERED: STAT IV Infusion **Titration per Protocol STA (15:46)
--- NOTE | 2021-08-22 15:53 | Orthopedic Progress Note ---
Date of Service August 22, 2021 Assessment & Plan (1) Subcapital fracture of left femur: Plan: The patient was kept n.p.o. for surgery today. However, her sodium was below her baseline. It was recommended that her surgery be held until her sodium gets to 129 or above. It reached that point today, however, her heart rate has become elevated throughout the day possibly from her paroxysmal A. fib. After discussion with anesthesia and the hospitalist, the surgery be held off until tomorrow morning. She restarted her diet today and once again kept n.p.o. after midnight tonight. Admission and Anticipated Discharge Date Admission Date: August 20, 2021 Subjective The patient states her pain is controlled in the left hip. She has been comfortable lying in bed. She is anxious to be able to eat today if she is unable to have surgery. Denies chest pain, shortness of breath, lightheadedness. Physical Exam Constitutional: WD/WN, vitals as above no acute distress ENMT: external ear and nose normal, oropharynx normal Neck: trachea midline Musculoskeletal: Hip: + limited ROM of hip (Left hip), + joint line tenderness (Left hip) and + log roll test positive (Left); no skin erythema and no ecchymosis Skin: no rashes, warm and dry Trauma: no evidence of skin trauma Neurologic: normal touch/pain/proprioception Psychiatric: A+Ox3, euthymic affect Speech: normal rate/rhythm/volume of speech Results & Data ([facility]) Vital Signs (Past 12 Hours) Vital Signs Temp Pulse Pulse Resp BP BP Pulse Ox 08/22/21 13:44 113 H 116/61 08/22/21 11:07 37.5 C 72 20 135/75 91 08/22/21 07:50 37.2 C 77 20 148/77 H 90 08/22/21 07:00 78
[2021-08-22] MEDS ORDERED: dilTIAZem HCL 125 MG in DEXTROSE 5% 100 ML IV SCH (16:00)
[2021-08-22] MEDS: ACETAMINOPHEN 325 MG TAB PO PRN (16:41)
[2021-08-22] MEDS: DOCUSATE SODIUM/SENNA 50/8.6MG TAB PO SCH ×2 (22:20→22:43)
[2021-08-22] MEDS: SIMVASTATIN 20 MG TAB PO SCH ×2 (22:43→22:44)
[2021-08-23 05:13] LABS: Basophils # (auto) 0.04 K/uL (0-0.2); Basophils % (auto) 0.5 %; Eosinophils # (auto) 0.35 K/uL (0-0.5); Eosinophils % (auto) 4.5 %; Hematocrit (blood only) 33.5 % (37-47); Hemoglobin 11.7 g/dL (12.0-16.0); Immature Granulocytes # (auto) 0.04 K/uL (0.00-0.02); Immature Granulocytes % (auto) 0.5 %; Lymphocytes # (auto) 1.28 K/uL (1.2-3.4); Lymphocytes % (auto) 16.6 %; Mean Corpuscular Hemoglobin 29.7 pg (25-34); Mean Corpuscular Hgb Conc 34.9 g/dL (32-36); Mean Platelet Volume 8.6 fL (7.4-10.4); Monocytes # (auto) 1.19 K/uL (0.11-0.59); Monocytes % (auto) 15.4 %; Neutrophils # (auto) 4.83 K/uL (1.4-6.5); Neutrophils % (auto) 62.5 %; Platelet Count 194 K/uL (130-400); RDW Coefficient of Variation 13.7 % (11.5-14.5); RDW Standard Deviation 42.8 fL (36.4-46.3); Red Blood Count 3.94 M/uL (4.2-5.4); White Blood Count 7.73 K/uL (4.8-10.8)
[2021-08-23 05:44] LABS: Calcium 8.8 mg/dl (8.5-10.1); Creatinine Clr Calc Pharmacy 32.3 ml/min; Est GFR (African American) 40.5 ml/min; Potassium 3.3 mmol/L (3.5-5.1)
[2021-08-23] MEDS ORDERED: fentaNYL citrate 100 MCG/2 ML VIAL ONE (07:11)
[2021-08-23] MEDS ORDERED: PROPOFOL IV EMULSION 10 MG/ML 20 ML VIAL IV ONE (07:15)
[2021-08-23] MEDS ORDERED: ONDANSETRON INJ 2 MG/ML 2 ML VIAL ONE (07:15)
[2021-08-23] MEDS ORDERED: LIDOCAINE 2% 2 ML VIAL/AMP(20MG/ML) INFIL ONE (07:15)
[2021-08-23] MEDS: oxyCODONE HCL IR 5 MG TAB (IMMEDIATE RELEASE) PO PRN ×3 (07:33→21:01)
--- NOTE | 2021-08-23 07:51 | Anesthesiology Consultation ---
Date of Service August 23, 2021 The patient fell and broke her hip on 08/20/21. She has a history of afib for which she takes apixaban. Her last dose of apixaban was at 0800 on 08/20/21 so she would be over 72 hours since her last dose prior to going to the OR. She has chronic hyponatremia but her surgery has been delayed due to significantly low sodium levels 124-126. Last night her sodium level was found to be 130 so she was going to have her surgery, however her HR went up into the 130s (afib with RVR) so her surgery was again delayed. She has been on a diltiazem gtt and her rate is now controlled. Sodium level this AM is 129 which is an acceptable level for surgery. She was hypomagnesemic but is now corrected. She is slightly hypokalemic with potassium of 3.3. She will be given potassium chloride IV en route to the OR. Assessment & Plan Chart Review Chart Review: Acceptable Risk for Surgery (necessary surgery) and Patient NOT seen in Pre Admission Testing Consults Requested none medicine is following the patient on the floor History Surgery Operation Date: 08/23/21 08:30 Proposed Procedures p Left Hip Cannulated Screws Open Reduction Internal Fixation - Dewey Arenas DO Height/Weight Height: 5 ft 4 in Weight: 84.5 kg Allergies Allergy/AdvReac Type Severity Reaction Status Date / Time Penicillins Allergy Unknown Unknown Verified 08/22/21 09:39 Sulfa (Sulfonamide Allergy Unknown Unknown Verified 08/22/21 09:39 Antibiotics) amoxicillin AdvReac Intermediate Hypotension Verified 08/22/21 09:39 Medications Home Medications Medication Instructions Recorded Confirmed Last Taken albuterol sulfate 90 mcg/actuation 1 - 2 puff INHALATION DAILY PRN 01/20/20 08/20/21 Unknown aerosol inhaler (Ventolin HFA) amlodipine 2.5 mg tablet 2.5 mg PO DAILY 01/20/20 08/20/21 Unknown lisinopril 20 mg tablet 20 mg PO BID 01/20/20 08/20/21 Unknown metoprolol tartrate 50 mg tablet 50 mg PO BID 01/20/20 08/20/21 Unknown simvastatin 20 mg tablet 20 mg PO HS 01/20/20 08/20/21 Unknown acetaminophen 500 mg tablet 250 mg PO ONCE PRN tab 02/13/20 08/20/21 Unknown (Tylenol Extra Strength) apixaban 5 mg tablet (Eliquis) 5 mg PO BID #60 tab 02/13/21 08/20/21 Unknown calcium carbonate 600 mg(1,500 1 tab PO DAILY 08/20/21 08/20/21 Unknown mg)-vitamin D3 800 unit chewable tablet (Caltrate 600 plus D) triamterene 75 1 tab PO DAILY 08/20/21 08/20/21 Unknown mg-hydrochlorothiazide 50 mg tablet Active Medications Generic Name Dose Route Start Last Admin Trade Name Freq PRN Reason Stop Dose Admin Acetaminophen 650 mg 08/20/21 23:00 08/22/21 16:41 Acetaminophen 325 Mg Tab PO 09/19/21 22:59 650 mg Q6H PRN Administration pain/fever Diltiazem HCl 125 mg/ Dextrose 125 mls @ 5 mls/hr 08/22/21 16:00 08/23/21 06:56 IV 09/21/21 15:59 5 mg/hr .Q24H JANY 5 mls/hr Titration Protocol 5 MG/HR Lisinopril 20 mg 08/20/21 23:00 08/22/21 22:10 Lisinopril 20 Mg Tab PO 09/19/21 22:59 Not Given BID JANY Miconazole Nitrate 1 appln 08/21/21 17:10 08/21/21 20:56 Miconazole Nitrate Powder 43 Gm EXT 09/20/21 17:09 1 appln PRN PRN Administration Affected Skin Folds Ondansetron HCl 4 mg 08/21/21 17:38 08/21/21 18:14 Ondansetron Inj 2 Mg/Ml 2 Ml Vial IV 09/20/21 17:37 4 mg Q6H PRN Administration Nausea And Vomiting Oxycodone HCl 5 mg 08/20/21 23:00 08/23/21 07:33 Oxycodone Hcl Ir 5 Mg Tab (Immediate Release) PO 09/03/21 22:59 5 mg Q4H PRN Administration MODERATE Pain (4,5,6) & Pre PT Senna/Docusate Sodium 2 tab 08/20/21 23:00 08/22/21 22:43 Docusate Sodium/Senna 50/8.6mg Tab PO 09/19/21 22:59 2 tab HS JANY Administration Simvastatin 20 mg 08/20/21 23:00 11/05/21 22:44 Simvastatin 20 Mg Tab PO 09/19/21 22:59 20 mg HS JANY Administration NPO Date Last Intake of Fluids: 08/21/21 Date Last Intake of Solids: 08/21/21 Past Medical History Medical History Anemia Anticoagulant long-term use Atrial fibrillation Chronic kidney disease Dyslipidemia Hypertension Hypomagnesemia Hyponatremia Past Family History Family History Other Diabetes Hypertension Past Surgical History Surgical History H/O wisdom tooth extraction History of tonsillectomy Social History Smoking Status: Never smoker Hx Alcohol Use: No Hx Substance Use: No Physical Exam Vital Signs Last Vital Signs Temp 37 C 08/22/21 20:00 Pulse 72 08/23/21 04:00 Resp 15 08/23/21 04:00 BP 138/55 L 08/23/21 04:00 Pulse Ox 90 08/23/21 04:00 Testing Laboratory Results 08/23/21 04:53 08/23/21 04:53 PT 9.8 Seconds (9.0-12.0) 08/20/21 18:10 INR 1.0 (0.9-1.1) 08/20/21 18:10 APTT 28.2 Seconds (21.0-31.0) 08/20/21 18:10 Urine Color Yellow 08/20/21 18:20 Urine Appearance Clear (Clear) 08/20/21 18:20 Urine pH 7.5 (4.5-7.5) 08/20/21 18:20 Ur Specific [place] 1.008 (1.000-1.030) 08/20/21 18:20 Urine Protein Negative (Negative) 08/20/21 18:20 Urine Glucose (UA) Negative (Negative) 08/20/21 18:20 Urine Ketones Negative (Negative) 08/20/21 18:20 Urine Nitrite Negative (Negative) 08/20/21 18:20 Ur Leukocyte Esterase Negative (Negative) 08/20/21 18:20 Urine WBC (Auto) 1-5 /hpf (0-5) 08/20/21 18:20 Urine RBC (Auto) 0-4 /hpf (0-4) 08/20/21 18:20 U Hyaline Cast (Auto) 0 /lpf (0-5) 08/20/21 18:20 U Epithel Cells (Auto) 0-5 /lpf (0-5) 08/20/21 18:20 Urine Bacteria (Auto) Negative (Negative) 08/20/21 18:20 Blood Type O Positive 08/20/21 18:18 Antibody Screen NEGATIVE 08/20/21 18:18 Electrocardiogram Date: 08/21/21 DICTATED BY:Norbert Eden MD Test Reason : Blood Pressure : / mmHG Vent. Rate : 064 BPM Atrial Rate : 064 BPM P-R Int : 168 ms QRS Dur : 082 ms QT Int : 412 ms P-R-T Axes : 061 007 016 degrees QTc Int : 425 ms Poor data quality, interpretation may be adversely affected Normal sinus rhythm Minimal voltage criteria for LVH, may be normal variant Borderline ECG When compared with ECG of 20-AUG-2021 20:41, (unconfirmed) No significant change was found Confirmed by Norbert Eden ([id number]) on 08/21/2021 10:52:54 AM Referred By: REFERRED SELF Confirmed By:Ankit Eden Signed By: 08/21/21 1053 Dictated:[id number] Chest X-Ray Date: 08/20/21 XR chest 1V portable HISTORY: Hip fracture. Fall. COMPARISON: Chest 01/23/2020. FINDINGS: The lungs are clear. Cardiac silhouette is normal in size. No pleural effusions. No pneumothorax. Stable prominence of the central pulmonary arteries. Degenerative changes again noted within the shoulders. No acute fractures within the visualized osseous structures of the chest. IMPRESSION: No acute process. ACT 112: Negative or not required by law. Electronically signed by: Gio Grant M.D. 08/20/2021 6:48 PM Dictated:[id number] Transcribed: [id number] Echocardiogram Date: 01/23/20 EF: 60-65 LV Function: normal Valvular Disease: + no significant valvular disease
[2021-08-23] MEDS ORDERED: HYDROmorphone INJ 1 MG/ML SYRINGE IV PRN (08:02)
[2021-08-23] MEDS ORDERED: ATROPINE SULFATE 0.1 MG/ML 10ML SYR IV PRN (08:02)
[2021-08-23] MEDS ORDERED: ONDANSETRON INJ 2 MG/ML 2 ML VIAL IV PRN (08:02)
[2021-08-23] MEDS ORDERED: fentaNYL citrate 100 MCG/2 ML VIAL IV PRN (08:02)
[2021-08-23] MEDS ORDERED: PHENYLEPHRINE 100MCG/ML 5ML SYR IV PRN (08:02)
[2021-08-23] MEDS ORDERED: LABETALOL HCL IV 5 MG/ML 20ML IV PRN (08:02)
[2021-08-23] MEDS ORDERED: ePHEDrine sulfate 50 MG/ML AMP IV PRN (08:02)
[2021-08-23] MEDS ORDERED: POTASSIUM CHLORIDE CRTAB 20 MEQ TABCR PO STA (08:23)
--- NOTE | 2021-08-23 08:37 | History & Physical Bridge Note ---
Date of Service August 23, 2021 History & Physical Bridge Note I have examined the patient, reviewed the History & Physical and in the interval since the performance of the History & Physical I have noted the following changes of clinical significance: no changes noted
[2021-08-23] MEDS ORDERED: ePHEDrine sulfate 50 MG/ML SYR ONE (09:37)
[2021-08-23] MEDS ORDERED: SODIUM CHLORIDE 0.9% INJ 10 ML VIAL ONE (09:37)
[2021-08-23] MEDS ORDERED: ceFAZolin 1000MG 1,000 MG/7.5 ML SYR IV ONE (09:47)
--- NOTE | 2021-08-23 09:52 | Post Operative Brief Note ---
Immediate Post Op Note v1 Date of Surgery August 23, 2021 Pre & Post Diagnosis Operation Date: 08/23/21 08:30 Pre-Op Diagnosis: Impacted Left Subcapital Femoral Neck Fracture Post-Op Diagnosis: Impacted Left Subcapital Femoral Neck Fracture I identified the patient and participated in the time-out.: Yes Procedure Operation Date: 08/23/21 08:30 Actual Procedures p Left Hip Open Reduction Internal Fixation impacted femoral neck fracture(Left) - Dewey Arenas DO Surgeon Dewey Arenas DO Crystalizer Luis Coronado PA-C Estimated Blood Loss 2 Findings Consistent with Post-Op Diagnosis Drains [place] Catheter Anesthesia Type Spinal MAC Complications none Disposition Accompanied Patient To Recovery: No
[2021-08-23] MEDS ORDERED: BUPIVACAINE 0.5 % 5 MG/1 ML MPF 30ML VIAL ONE (09:53)
[2021-08-23] MEDS ORDERED: NALOXONE HCL 0.4 MG/1 ML VIAL/CARP IV PRN (10:14)
--- NOTE | 2021-08-23 10:45 | Fluoroscopy Report ---
FL hip LT 2-3V HISTORY: 81 years-old Female LT CANNULATED SCREWS acute fracture of the left femoral neck COMPARISON: Pelvis and hip radiographs 08/20/2021 TECHNIQUE: 2 spot fluoroscopic images of the left hip were obtained utilizing 71.4 seconds fluoroscop y time FINDINGS: Status post placement of 3 cannulated screws traversing the left femoral neck fixating the acute femo ral neck fracture. The hardware appears intact. Satisfactory alignment. Moderate left hip osteoarthri tis. IMPRESSION: Fluoroscopic assistance as above. ACT 112: Negative or not required by law. The above report was generated using voice recognition software. It may contain grammatical, syntax o r spelling errors. Electronically signed by: Ariel Contreras M.D. 08/23/2021 10:44 AM
--- NOTE | 2021-08-23 10:47 | XRay Report ---
XR hip LT min 2V HISTORY: 81 years-old Female Post-Operative implant position acute fracture left femoral neck COMPARISON: Fluoroscopic images of the left hip of same day, left hip radiographs 08/20/2021 TECHNIQUE: 2 views of the left hip FINDINGS: Status post placement of 3 cannulated screws fixating the acute left femoral neck fracture. There is satisfactory alignment. The hardware appears intact. Expected postoperative soft tissue swelling. No unexpected opaque foreign body. Lateral skin william. There is at least moderate left hip osteoarthri tis. No additional acute fracture. IMPRESSION: Satisfactory alignment of the acute femoral neck fracture status post ORIF. ACT 112: Negative or not required by law. The above report was generated using voice recognition software. It may contain grammatical, syntax o r spelling errors. Electronically signed by: Ariel Contreras M.D. 08/23/2021 10:45 AM
--- NOTE | 2021-08-23 10:50 | Anesthesiology Progress Note ---
Date of Service August 23, 2021 Anesthesia Post Procedure Vital Signs Vital Signs: Temp Pulse Pulse Pulse Resp BP BP 08/23/21 10:40 78 17 109/50 L 08/23/21 10:30 81 16 121/76 08/23/21 10:20 68 12 104/54 L 08/23/21 10:10 78 15 94/44 L 08/23/21 10:04 36.0 C L 82 12 101/44 L 08/23/21 08:00 36.7 C 08/23/21 07:00 75 14 08/23/21 04:00 72 15 138/55 L 08/23/21 03:00 62 91/39 L 08/23/21 00:00 99 H 24 112/62 08/22/21 20:00 37 C 73 20 95/43 L 08/22/21 19:00 86 15 90/49 L 08/22/21 18:45 103 H 26 H 85/44 L 08/22/21 18:15 103 H 21 80/43 L 08/22/21 18:00 117 H 24 83/44 L 08/22/21 17:45 135 H 20 137/80 08/22/21 16:35 37.6 C H 103 H 16 08/22/21 15:48 84 117/75 08/22/21 13:44 113 H 116/61 08/22/21 11:07 37.5 C 72 20 BP Pulse Ox 08/23/21 10:40 94 08/23/21 10:30 94 08/23/21 10:20 100 08/23/21 10:10 99 08/23/21 10:04 96 08/23/21 08:00 08/23/21 07:00 91 08/23/21 04:00 90 08/23/21 03:00 92 08/23/21 00:00 95 08/22/21 20:00 91 08/22/21 19:00 90 08/22/21 18:45 93 08/22/21 18:15 90 08/22/21 18:00 90 08/22/21 17:45 90 08/22/21 16:35 108/70 91 08/22/21 15:48 08/22/21 13:44 08/22/21 11:07 135/75 91 Pain Intensity Left Hip: Pain Intensity: 3 Transfer of Care Handoff Completed per policy Notes Mental Status: alert / awake / arousable Patient Amnestic to Procedure: Yes Nausea / Vomiting: adequately controlled Pain: adequately controlled Airway Patency, RR, SpO2: stable & adequate BP & HR: stable & adequate Hydration State: stable & adequate Neuraxial Anesthesia: was administered and sensory block is resolving Anesthetic Complications: no major complications apparent and Pt Satisfied with anesthetic care Notes: The patient is awake and comfortable. Her vital signs are stable. I spoke to the patient about the very small risk of spinal hematoma due to her taking apixaban. I told her that if she develops any new numbness, weakness, or incontinence starting tomorrow that she is to tell her nurse immediately. She understood and agrees with this plan.
[2021-08-23] MEDS: POTASSIUM CHLORIDE / WTR 10 MEQ/100 ML PLCT IV SCH ×2 (11:08→11:11)
[2021-08-23] MEDS: METOPROLOL TARTRATE 25 MG TAB PO SCH ×2 (11:08→21:00)
--- NOTE | 2021-08-23 11:52 | Nephrology Consultation ---
Date of Consultation August 23, 2021 Assessment & Plan (1) Hyponatremia: Chronic hyponatremia for last 1 >year, Na around 125 to 130, high U osm. Admitted with a sodium 30 which dropped to 20 obtain slowly improved to 20 this in osmolality slightly low sodium. Currently otherwise asymptomatic. Hyponatremia due to combination of factors including Thiazide diuretics, pain, hypotension. Clinically she seems to be slightly volume depleted ? NPO status --encourage increase fluid intake and increase protein in diet, repeat Na and electrolyte this afternoon --liberalize salt in diet --In future avoid thiazide diuretics, if diuretics needed, suggest to use loop diuretics. Will follow Thank you for allowing me to participate in your patient's care. It was a pleasure to see Carlene. (2) Acute kidney injury: (3) Hypomagnesemia: (4) Anemia: (5) Hypertension: (6) Subcapital fracture of left femur: History of Present Illness Reason for Consultation: Hyponatremia, STACY Attending Physician: Greyson Paez MD History of Present Illness Carlene Vigil this 81 year past history significant stage IIIA CKD, Hyponatremia, hypertension, dyslipidemia paroxysmal AFib admitted to the hospital after fall at home and left hip fracture. She was noted to have hyponatremia and nephrology consult was requested for further management. EMR records reviewed during visit. Carlene Presented to hospital 3 days ago after she had a mechanical fall at and had left hip pain. On a she was noted to have displaced subcapital fracture of left femur. She is so found to AFib with RVR converted to sinus rhythm and rate became controlled. Initially planned to have surgery after admission but postponed because of hyponatremia. She had surgery this morning. Record review shows she has history of hyponatremia with serum sodium variable from 126 to 131. she was on triamterene hydrochlorothiazide which was discontinued on admission, sodium slightly improved to 130 and again dropped to 126 yesterday. This morning sodium improved again to 126. Urine osmolality 320 but urine sodium was low. Blood pressure has been extremely variable since admission, initially was elevated then she was persistently hypotensive. No history of hypothyroidism or adrenal insufficiency. Denies any recent acute illness, nausea, vomiting, weight loss. Magnesium was 1.6 which was replaced and increase to 2.1. K has been low as well. Renal function has been variable over last few years with repeated episodes of STACY, creatinine variable from 1.2-1.5. During this admission her creatinine was close to around 1.0 but this morning lab showed STACY with creatinine 1.4. She just had the hip surgery this morning however she denies any pain otherwise asymptomatic and seems comfortable. She have bowel last 3 days but denies abdominal pain, nausea. Allergies Allergy/AdvReac Type Severity Reaction Status Date / Time Penicillins Allergy Unknown Unknown Verified 08/22/21 09:39 Sulfa (Sulfonamide Allergy Unknown Unknown Verified 08/22/21 09:39 Antibiotics) amoxicillin AdvReac Intermediate Hypotension Verified 08/22/21 09:39 Home Medications Medication Instructions Recorded Confirmed Type albuterol sulfate 90 mcg/actuation 1 - 2 puff INHALATION DAILY PRN 01/20/20 08/20/21 History aerosol inhaler (Ventolin HFA) amlodipine 2.5 mg tablet 2.5 mg PO DAILY 01/20/20 08/20/21 History lisinopril 20 mg tablet 20 mg PO BID 01/20/20 08/20/21 History metoprolol tartrate 50 mg tablet 50 mg PO BID 01/20/20 08/20/21 History simvastatin 20 mg tablet 20 mg PO HS 01/20/20 08/20/21 History acetaminophen 500 mg tablet 250 mg PO ONCE PRN tab 02/13/20 08/20/21 History (Tylenol Extra Strength) apixaban 5 mg tablet (Eliquis) 5 mg PO BID #60 tab 02/13/21 08/20/21 Rx calcium carbonate 600 mg(1,500 1 tab PO DAILY 08/20/21 08/20/21 History mg)-vitamin D3 800 unit chewable tablet (Caltrate 600 plus D) triamterene 75 1 tab PO DAILY 08/20/21 08/20/21 History mg-hydrochlorothiazide 50 mg tablet Patient History Medical History (Updated 08/23/21 @ 11:51 by Sallie Newton MD) Acute kidney injury Anemia Anticoagulant long-term use Atrial fibrillation Chronic kidney disease Dyslipidemia Hypertension Hypomagnesemia Hyponatremia Surgical History H/O wisdom tooth extraction History of tonsillectomy Family History Other Diabetes Hypertension Social History (Updated 08/20/21 @ 22:55 by Mohamud Escobar Smoking Status: Never smoker Hx Alcohol Use: No Hx Substance Use: No Preferred Language: Italian Communication Ability: Effective Furniture Mover Required: No Beliefs That Will Affect Care: None marital status: Current Living Situation: Spouse Current Living Situation Comment: [place] current occupational status: retired 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 Physical Exam Constitutional: WD/WN, vitals as above no acute distress Eyes: + anicteric sclerae ENMT: Ears: no hearing impairment and no external ear abnormality Nose: nasal mucous membranes not dry Neck: normal visual inspection Thyroid: no thyromegaly Respiratory: normal respiratory effort; no respiratory distress and no cough Auscultation: lungs clear to auscultation bilaterally Cardiovascular: Rate/Rhythm: regular rate and regular rhythm Heart Sounds: normal S1 and normal S2 Extremities: no edema Gastrointestinal (Abdomen): Inspection/Auscultation: abdomen normal to inspection and normal bowel sounds Percussion/Palpation: abdomen soft; a bdomen nontender Musculoskeletal: Head/Neck/Chest: normocephalic, head atraumatic and neck supple left hip surgery Skin: normal turgor; no rashes Neurologic: no focal motor deficits and not confused Psychiatric: Orientation: alert and oriented x 3 Affect: euthymic affect Results & Data ([facility]) Vital Signs (Past 12 Hours) Vital Signs Temp Pulse Pulse Resp BP BP Pulse Ox 08/23/21 11:00 36.5 C 70 12 119/50 L 93 08/23/21 10:50 36.8 C 68 20 111/50 L 94 08/23/21 10:40 78 17 109/50 L 94 08/23/21 10:30 81 16 121/76 94 08/23/21 10:20 68 12 104/54 L 100 08/23/21 10:10 78 15 94/44 L 99 08/23/21 10:04 36.0 C L 82 12 101/44 L 96 08/23/21 08:00 36.7 C 08/23/21 07:00 75 14 91 11/06/21 04:00 72 15 138/55 L 90 08/23/21 03:00 62 91/39 L 92 08/23/21 00:00 99 H 24 112/62 95 PG Care Time/CCT Total # of Minutes Spent Total Time Spent with Patient: Total time spent is greater than 50% in coordination of care (as documented) at patient's floor/unit and/or counseling patient: Coding Level of Care Code 54010 Initial Inpt Care Lvl 3 Diagnoses Acute kidney injury N17.9 Hyponatremia E87.1 Hypomagnesemia E83.42 Anemia D64.9 Hypertension I10 Hypertension type: essential hypertension Subcapital fracture of left femur S72.012A (1) Hypertension Hypertension type: essential hypertension Qualified Code(s): I10 - Essential (primary) hypertension
--- NOTE | 2021-08-23 12:48 | Operative Report (OR) ---
DATE OF PROCEDURE: 08/23/2021. PREOPERATIVE DIAGNOSIS: Impacted left subcapital femoral neck fracture. POSTOPERATIVE DIAGNOSIS: Impacted left subcapital femoral neck fracture. PROCEDURE: Left hip open reduction and internal fixation of impacted femoral neck fracture. SURGEON: Dewey Arenas DO CORRUGATED SHEET MATERIAL SHEETER: Maryann Coronado PA-C, who was present for patient positioning, sterile prep and amado pe, management of retractors and instruments. He was present through the critical portions of the sravan e including wound closure, application of sterile dressing and transport of the patient to recovery. ANESTHESIA: Spinal with sedation and local. SPECIMENS: None. DRAINS: None. COMPLICATIONS: None. BLOOD LOSS: 2 mL. PERTINENT HISTORY: This is an 81-year-old female who sustained a mechanical fall, had left hip pain, difficulty with ambulating. Seen in the Emergency Department. Radiographs and CT scan demonstrate i mpacted left femoral neck fracture. The patient was then scheduled for surgery as indicated. All potential risks, benefits, complications, alternatives, potential for incomplete relief of sympto ms, need for further surgery, DVT, PE, , persistent pain, swelling, scarring, weakness, neurovas cular injury, wound complications, hardware failure, nonunion, malunion, and bone fracture were discu ssed with the patient. The patient decided to proceed with the procedure as indicated. DESCRIPTION OF PROCEDURE: The patient was taken to the operative suite, placed supine on the operatin g room table. The consent was reviewed and proper operative site was identified and then anesthesia w as administered appropriately. Next, the patient was placed on the fracture table. The affected limb was placed to padded boot traction and the unaffected leg was placed in a well leg parker, flexed and abducted and slightly externally rotated. The well leg was then padded and protected. All other bony prominences were properly padded and protected. The post was padded in the peroneum. Next, the affec eligio limb was placed under appropriate traction using the fracture table and initial reduction was per formed under live fluoroscopic assistance. Next, the affected hip was then sterilely prepped and drap ed in usual fashion. Next, the greater trochanter of the hip was visualized under C-arm fluoroscopy. A 10-blade scalpel incision was made along the lateral aspect of the hip inferior to the greater troc hanter. This incision was then carefully deepened through subcutaneous tissue. Meticulous hemostasis was achieved with electrocautery. Next, the iliotibial band was then incised with a 10-blade scalpel and appropriate bleeders were cauterized as well. Next, using live fluoroscopic assistance 7.3 mm can nulated guide pin was placed into the central aspect of the lateral femur directed into the inferior one-third of the femoral neck and head, inferior and central both confirmed with AP and lateral proje ctions. Next, the cannulated guide was then used to place 2 further 7.3 mm cannulated screw guide pin s superior anterior and superior posterior in relation to the inferiorly placed guide pin under AP an d lateral live fluoroscopic assistance. Next, the guide pins were all noted to be within 5 mm of the subchondral bone on AP and lateral projections. This was then followed by measurement of the appropri ate length for planned screw implantation and then the lateral cortex was drilled, this followed by c ountersinking of the planned screw sites followed by implantation of the 7.3 mm cannulated screws of appropriate length. This was confirmed under live fluoroscopic assistance. Next, a hand screwdriver w as used to tighten the screws to fully seat the fracture and compress it confirmed using x-ray. Next, the guide pins were removed. The wound was copiously irrigated with sterile normal saline. Final x-r ays obtained in both AP and lateral projections, followed by final irrigation with sterile normal amanda ine, closure of the fascia with interrupted #1 Vicryl sutures, closure of the dermis with buried inte rrupted 2-0 Vicryl. The skin was then closed using skin william. A sterile compressive dressing was a pplied. The patient was awakened and taken to recovery in stable condition. Job ID: [id number]
[2021-08-23 14:51] LABS: Albumin Level 2.8 gm/dl (3.4-5.0); BUN Creatinine Ratio 19.6 (10-20); Calcium 8.8 mg/dl (8.5-10.1); Creatinine Clr Calc Pharmacy 32.1 ml/min; Est GFR (African American) 40.9 ml/min; Est GFR (Non-African American) 35.3 ml/min; Phosphorus 2.9 mg/dl (2.5-4.9)
--- NOTE | 2021-08-23 17:29 | Hospitalist Progress Note ---
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 Underwent successful ORIF this morning. * Vitamin D level 70 = normal * Continue pain control w/ OxyIR * Remove sutherland POD #1 * PT/OT eval following surgery * CM consult for discharge planning - ?rehab * Hold ARMINDA POD#1 d/t spinal anesthesia * Resume Eliquis tonight (2) Fall: Plan: * On to left hip, as per above (3) Atrial fibrillation: Plan: * Patient required transfer to PCU bed yesterday as her Afib was refractory to IV Lopressor * Given a bolus of Cardizem 10mg IV x1 and started on Cardizem gtt * Patient converted back to NSR overnight but kept on low dose of 5 mg/hr of Cardizem while in OR * Lopressor dose uptitrated to 75mg BID, now off Cardizem gtt, HR remains stable in sinus * Resume Eliquis (4) Anticoagulant long-term use: Plan: Resume Eliquis this evening as noted above. (5) Hypertension: Plan: BP controlled. * Triamterene/HCTZ held, but will ultimately be discontinued d/t chronic hyponatremia. * Continued on amlodopine * Contine Metoprolol * Hold Lisinopril tomorrow. May resume POD #2 * Further adjustment in BP meds may be indicated with stopping Triamterene/HCTZ (6) Chronic kidney disease: Plan: * CKD stage 3, creat at baseline (7) Hyponatremia: Plan: * Chronic over the past year. * Stop Triamterene/HCTZ. * Urine osmol and serum osmol ordered - doesn't appear to be an SIADH issue. * Nephrology consulted, appreciate their recommendations. * Will monitor. (8) Hypomagnesemia: Plan: * Normalized at 2.0 today (9) Right shoulder pain: Plan: * Arthritic changes, nothing acute Plan: PT/OT. Pain control. DVT ppx (Eliquis being resumed this evening). CM consult for ?rehab v home with home PT/OT. Admission and Anticipated Discharge Date Admission Date: August 20, 2021 [address]ive Mrs. Vigil was seen on rounds this afternoon. She is currently resting comfortably in bed, accompanied by her . She underwent ORIF of L hip d/t impacted L subcapital femoral neck fracture by Dr. Arenas this morning. She is currently in pleasant spirits, reports minimal pain in L hip, she just requested something for pain and RN just medicated her with a dose of OxyIR. She denies cp, dyspnea, cough, n/v/d, f/c, headache. Sutherland catheter remains in place. She converted back to NSR, now off Dilt gtt. No other complaints/concerns verbalized by pt or at this time. Review of Systems Review of Systems: CONSTITUTIONAL: Denies weight loss/gain, fever and chills, fatigue, malaise, generalized weakness. RESPIRATORY: Denies SOB, cough, wheezing. CV: Denies palpitations, CP, lower extremity edema, orthopnea, PND. GI: Denies abdominal pain, nausea, vomiting and diarrhea. : No complaints, still has catheter in. MUSCULOSKELETAL: Denies myalgia. Mild L hip discomfort. SKIN: Denies rash and pruritus. NEUROLOGICAL: Denies headache, syncope, focal weakness, numbness, tingling. PSYCHIATRIC: Denies recent changes in mood. Denies anxiety and depression. Physical Exam Physical Exam: GENERAL: 81 yo elderly obese WF, pleasant. AAOx3. NAD. LUNGS: Right basilar crackles. No wheezes or rhonchi. Good air exchange. No accessory muscle use. CARDIOVASCULAR: Regular rate and rhythm. No M/G/R. No JVD. ABDOMEN: Soft, non-tender and non-distended. No palpable masses. Bowel sounds normoactive x 4 quad. EXTREMITIES: No edema. Non-tender. Peripheral pulses +2/4. Left hip incision dressed/dry. PSYCHIATRIC: Cooperative. Appropriate mood and affect. SKIN: Warm, dry, intact. No rashes or lesions. Results & Data Results & Data ([facility]) Vital Signs (Past 12 Hours) Vital Signs Temp Pulse Pulse Pulse Resp BP BP 08/23/21 16:16 36.5 C 77 18 142/71 H 08/23/21 13:52 36.5 C 65 18 125/76 08/23/21 12:30 60 22 91/40 L 08/23/21 12:00 65 20 102/42 L 08/23/21 11:30 74 12 133/48 L 08/23/21 11:00 36.5 C 70 12 119/50 L 08/23/21 10:50 36.8 C 68 20 111/50 L 08/23/21 10:40 78 17 109/50 L 08/23/21 10:30 81 16 121/76 08/23/21 10:20 68 12 104/54 L 08/23/21 10:10 78 15 94/44 L 08/23/21 10:04 36.0 C L 82 12 101/44 L 08/23/21 08:00 36.7 C 08/23/21 07:00 75 14 Pulse Ox 08/23/21 16:16 90 08/23/21 13:52 92 08/23/21 12:30 91 08/23/21 12:00 90 08/23/21 11:30 93 08/23/21 11:00 93 08/23/21 10:50 94 08/23/21 10:40 94 08/23/21 10:30 94 08/23/21 10:20 100 08/23/21 10:10 99 08/23/21 10:04 96 08/23/21 08:00 08/23/21 07:00 91 Laboratory Results 08/23/21 04:53 08/23/21 14:07 Medications Administered Current Medications Acetaminophen (Acetaminophen 325 Mg Tab) 650 mg PO Q6H PRN PRN Reason: pain/fever Stop: 09/19/21 22:59 Last Admin: 08/22/21 16:41 Dose: 650 mg Albuterol (Albuterol Hfa 8 Gm Inhaler) 2 puffs INH Q6R PRN PRN Reason: sob/wheezing Stop: 09/19/21 22:59 Apixaban (Apixaban 5 Mg Tablet) 5 mg PO BID JANY Stop: 09/22/21 20:59 Bisacodyl (Bisacodyl 10 Mg Supp) 10 mg NM DAILY PRN PRN Reason: Constipation Stop: 09/19/21 22:59 Lisinopril (Lisinopril 20 Mg Tab) 20 mg PO BID JANY Stop: 09/19/21 22:59 Last Admin: 08/22/21 22:10 Dose: Not Given Magnesium Hydroxide (Magnesium Hydroxide Susp 30 Ml Udc) 30 ml PO DAILY PRN PRN Reason: Constipation Stop: 09/19/21 22:59 Metoprolol Tartrate (Metoprolol Tartrate 25 Mg Tab) 75 mg PO BID JANY Stop: 09/22/21 08:59 Last Admin: 08/23/21 11:08 Dose: 75 mg Miconazole Nitrate (Miconazole Nitrate Powder 43 Gm) 1 appln EXT PRN PRN PRN Reason: Affected Skin Folds Stop: 09/20/21 17:09 Last Admin: 08/21/21 20:56 Dose: 1 appln Ondansetron HCl (Ondansetron Inj 2 Mg/Ml 2 Ml Vial) 4 mg IV Q6H PRN PRN Reason: Nausea And Vomiting Stop: 09/20/21 17:37 Last Admin: 08/21/21 18:14 Dose: 4 mg Oxycodone HCl (Oxycodone Hcl Ir 5 Mg Tab (Immediate Release)) 5 mg PO Q4H PRN PRN Reason: MODERATE Pain (4,5,6) & Pre PT Stop: 09/03/21 22:59 Last Admin: 08/23/21 15:19 Dose: 5 mg Senna/Docusate Sodium (Docusate Sodium/Senna 50/8.6mg Tab) 2 tab PO HS JANY Stop: 09/19/21 22:59 Last Admin: 08/22/21 22:43 Dose: 2 tab Simvastatin (Simvastatin 20 Mg Tab) 20 mg PO HS JANY Stop: 09/19/21 22:59 Last Admin: 08/22/21 22:44 Dose: 20 mg PG Care Time/CCT Total # of Minutes Spent Total Time Spent with Patient: Total time spent is greater than 50% in coordination of care (as documented) at patient's floor/unit and/or counseling patient: Coding Level of Care Code 38984 Subseq Hosp Care Lvl 2 Diagnoses 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 M80.059A Fall W19.XXXA Encounter type: initial encounter Atrial fibrillation I48.0 Atrial fibrillation type: paroxysmal Anticoagulant long-term use Z79.01 Hypertension I10 Hypertension type: essential hypertension Chronic kidney disease N18.9 Hyponatremia E87.1 Hypomagnesemia E83.42 Right shoulder pain M25.511 (1) Fall Encounter type: initial encounter Qualified Code(s): W19.XXXA - Unspecified fall, initial encounter (2) Atrial fibrillation Atrial fibrillation type: paroxysmal Qualified Code(s): I48.0 - Paroxysmal atrial fibrillation (3) Hypertension Hypertension type: essential hypertension Qualified Code(s): I10 - Essential (primary) hypertension
[2021-08-23] MEDS: APIXABAN 5 MG TABLET PO SCH (21:00)
[2021-08-23] MEDS: MAGNESIUM OXIDE 400 MG TAB PO SCH (21:01)
--- NOTE | 2021-08-23 23:02 | Electrocardiogram Report ---
Test Reason : Blood Pressure : / mmHG Vent. Rate : 112 BPM Atrial Rate : 288 BPM P-R Int : 000 ms QRS Dur : 078 ms QT Int : 302 ms P-R-T Axes : 000 005 -30 degrees QTc Int : 412 ms Atrial fibrillation with rapid ventricular response Minimal voltage criteria for LVH, may be normal variant Nonspecific ST and T wave abnormality Abnormal ECG When compared with ECG of 21-AUG-2021 09:21, Atrial fibrillation has replaced Sinus rhythm Vent. rate has increased BY 45 BPM T wave inversion now evident in Inferior leads Confirmed by Dario Buck [id number]) on 08/23/2021 11:01:34 PM Referred By: REFERRED SELF Confirmed By:Dario Buck
[2021-08-24] MEDS: ACETAMINOPHEN 325 MG TAB PO PRN ×2 (03:42→20:15)
[2021-08-24 07:54] LABS: Basophils # (auto) 0.03 K/uL (0-0.2); Basophils % (auto) 0.4 %; Eosinophils % (auto) 6.2 %; Hematocrit (blood only) 31.8 % (37-47); Hemoglobin 10.9 g/dL (12.0-16.0); Immature Granulocytes # (auto) 0.04 K/uL (0.00-0.02); Immature Granulocytes % (auto) 0.5 %; Lymphocytes # (auto) 1.42 K/uL (1.2-3.4); Lymphocytes % (auto) 17.6 %; Mean Corpuscular Hemoglobin 29.7 pg (25-34); Mean Corpuscular Hgb Conc 34.3 g/dL (32-36); Mean Corpuscular Volume 86.6 fL (80-100); Mean Platelet Volume 8.7 fL (7.4-10.4); Monocytes # (auto) 1.04 K/uL (0.11-0.59); Monocytes % (auto) 12.9 %; Neutrophils # (auto) 5.06 K/uL (1.4-6.5); Neutrophils % (auto) 62.4 %; Platelet Count 192 K/uL (130-400); RDW Coefficient of Variation 13.6 % (11.5-14.5); RDW Standard Deviation 43.6 fL (36.4-46.3); Red Blood Count 3.67 M/uL (4.2-5.4); White Blood Count 8.09 K/uL (4.8-10.8)
[2021-08-24] MEDS: APIXABAN 5 MG TABLET PO SCH ×2 (08:11→20:16)
[2021-08-24] MEDS: MAGNESIUM OXIDE 400 MG TAB PO SCH ×2 (08:11→20:15)
[2021-08-24] MEDS: METOPROLOL TARTRATE 25 MG TAB PO SCH ×2 (08:11→20:16)
[2021-08-24 08:40] LABS: BUN Creatinine Ratio 24.4 (10-20); Calcium 8.7 mg/dl (8.5-10.1); Creatinine Clr Calc Pharmacy 49.6 ml/min; Est GFR (African American) 67.6 ml/min; Est GFR (Non-African American) 58.3 ml/min; Magnesium 1.7 mg/dl (1.8-2.4); Potassium 3.7 mmol/L (3.5-5.1)
--- NOTE | 2021-08-24 09:39 | Orthopedic Progress Note ---
Date of Service August 24, 2021 Assessment & Plan (1) Subcapital fracture of left femur: Plan: POD #1 left hip cannulated screws Resumed eliquis. SCDs and TEDs TTWB Will likely need SNF upon discharge Admission and Anticipated Discharge Date Admission Date: August 20, 2021 Subjective POD #1 patient resting comfortably in bed. No complaints today. No CP, SOB, dizziness. She does note she has not had a BM yet and would like some medication Physical Exam Physical Exam: Toes mobile, NVI. Calves soft, non tender. Dressing in place to left hip Results & Data ([facility]) Vital Signs (Past 12 Hours) Vital Signs Temp Pulse Pulse Resp BP Pulse Ox 08/24/21 08:07 36.7 C 67 18 130/73 91 08/24/21 02:55 36.9 C 73 20 158/73 H 96 08/24/21 00:08 63 08/23/21 23:40 36.4 C L 62 22 158/87 H 94
[2021-08-24] MEDS: SODIUM CHLORIDE 1 GM TABLET PO SCH (09:46)
[2021-08-24] MEDS: oxyCODONE HCL IR 5 MG TAB (IMMEDIATE RELEASE) PO PRN (09:46)
[2021-08-24] MEDS: MAGNESIUM HYDROXIDE SUSP 30 ML UDC PO PRN (09:46)
--- NOTE | 2021-08-24 10:28 | Nephrology Progress Note ---
Date of Service August 24, 2021 Assessment & Plan (1) Hyponatremia: Plan: Chronic hyponatremia for last 1 >year, Na around 125 to 130, high U osm. Admitted with a sodium 30 which dropped to 20 obtain slowly improved to 20 this in osmolality slightly low sodium. Currently otherwise asymptomatic. Hyponatremia due to combination of factors including Thiazide diuretics, pain, hypotension. Clinically she seems to be slightly volume depleted ? NPO status Sodium dropped to 127 with urine osmolality above 300. Renal function close to baseline, STACY resolved. -- Sodium chloride 2 grams daily, 1st dose now, liberalize salt in diet, limit free water intake to less than 1500 mL per day --In future avoid thiazide diuretics, if diuretics needed, suggest to use loop diuretics. Will follow (2) Acute kidney injury: (3) Hypomagnesemia: (4) Anemia: (5) Hypertension: (6) Subcapital fracture of left femur: Admission and Anticipated Discharge Date Admission Date: August 20, 2021 Chaya Concepcion was seen and examined in her room this morning. Overall she has been feeling well, denies any pain. Sodium again dropped to 127, electrolyte acceptable, renal function improved, creatinine now at baseline. Review of Systems Review of Systems: Detail ROS was unremarkable. Physical Exam Constitutional: WD/WN, vitals as above no acute distress Neck: normal visual inspection Thyroid: no thyromegaly Respiratory: normal respiratory effort; no respiratory distress and no cough Auscultation: lungs clear to auscultation bilaterally Cardiovascular: Rate/Rhythm: regular rate and regular rhythm Heart Sounds: normal S1 and normal S2 Extremities: no edema Skin: normal turgor; no rashes Neurologic: no focal motor deficits and not confused Psychiatric: Orientation: alert and oriented x 3 Affect: euthymic affect Results & Data ([facility]) Vital Signs (Past 12 Hours) Vital Signs Temp Pulse Pulse Resp BP Pulse Ox 08/24/21 08:07 36.7 C 67 18 130/73 91 08/24/21 02:55 36.9 C 73 20 158/73 H 96 08/24/21 00:08 63 08/23/21 23:40 36.4 C L 62 22 158/87 H 94 PG Care Time/CCT Total # of Minutes Spent Total Time Spent with Patient: Total time spent is greater than 50% in coordination of care (as documented) at patient's floor/unit and/or counseling patient: Coding Level of Care Code 87427 Subseq Hosp Care Lvl 2 Diagnoses Hyponatremia E87.1 Acute kidney injury N17.9 Hypomagnesemia E83.42 Anemia D64.9 Hypertension I10 Hypertension type: essential hypertension Subcapital fracture of left femur S72.012A (1) Hypertension Hypertension type: essential hypertension Qualified Code(s): I10 - Essential (primary) hypertension
--- NOTE | 2021-08-24 12:51 | Anesthesiology Progress Note ---
Date of Service August 24, 2021 Anesthesia Post Procedure Vital Signs Vital Signs: Temp Pulse Pulse Resp BP Pulse Ox Pulse Ox 08/24/21 12:03 92 08/24/21 11:41 36.6 C 69 18 134/82 91 08/24/21 08:07 36.7 C 67 18 130/73 91 08/24/21 02:55 36.9 C 73 20 158/73 H 96 08/24/21 00:08 63 08/23/21 23:40 36.4 C L 62 22 158/87 H 94 08/23/21 19:49 36.2 C L 73 16 133/73 90 08/23/21 16:16 36.5 C 77 18 142/71 H 90 08/23/21 13:52 36.5 C 65 18 125/76 92 Pain Intensity Left Hip: Pain Intensity: 3 Notes Mental Status: alert / awake / arousable Patient Amnestic to Procedure: Yes Nausea / Vomiting: adequately controlled Pain: adequately controlled Airway Patency, RR, SpO2: stable & adequate BP & HR: stable & adequate Hydration State: stable & adequate Neuraxial Anesthesia: was administered and sensory block resolved Anesthetic Complications: no major complications apparent and Pt Satisfied with anesthetic care
--- NOTE | 2021-08-24 14:06 | Hospitalist Progress Note ---
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 Underwent successful ORIF, pod#1. * Vitamin D level 70 = normal * Continue pain control w/ OxyIR * Remove sutherland * Continue PT/OT * Incentive spirometry * CM consult for discharge planning - per PT will need acute rehab * Hold ARMINDA today, resume tomorrow * Eliquis resumed yesterday - providing DVT ppx (2) Fall: Plan: * On to left hip, as per above (3) Atrial fibrillation: Plan: * Patient required transfer to PCU bed 08/22 as her Afib was refractory to IV Lopressor * Given a bolus of Cardizem 10mg IV x1 and started on Cardizem gtt * Patient converted back to NSR overnight (08/22-08/23) but kept on low dose of 5 mg/hr of Cardizem while in OR * Lopressor dose uptitrated to 75mg BID yesterday, Cardizem gtt discontinued, HR remains stable in sinus * Eliquis resumed (4) Hypertension: Plan: BP controlled. * Triamterene/HCTZ held, but will ultimately be discontinued d/t chronic hyponatremia. * Continued on amlodopine * Contine Metoprolol * Lisinopril held today d/t spinal anesthesia, resume tomorrow. * Further adjustment in BP meds may be indicated with stopping Triamterene/HCTZ (5) Chronic kidney disease: Plan: * CKD stage 3, creat at baseline (6) Hyponatremia: Plan: * Chronic over the past year. * Stop Triamterene/HCTZ. * Urine osmol and serum osmol ordered - doesn't appear to be an SIADH issue. * Nephrology consulted, appreciate their recommendations. Appears renal started on salt tabs. * Will monitor. (7) Hypomagnesemia: Plan: * Mag 1.7 today, replacement ordered. * Started on Mag Ox 400mg BID. (8) Right shoulder pain: Plan: * Arthritic changes, nothing acute Plan: PT/OT. Pain control. DVT ppx (Eliquis being resumed this evening). CM consult for discharge planning as patient will require inpatient rehab prior to return home. Admission and Anticipated Discharge Date Admission Date: August 20, [address] Mrs[address] Vigil was seen this morning on rounds. She is resting comfortably in bed. Reports no complaints at this time. She is s/p ORIF L hip, pod #1 d/t subcapital femoral neck fracture. Surgery performed by Dr. Arenas, no complications. She denies uncontrolled L hip pain. Denies chest pain, dyspnea, n/v/d, f/c, headache, or gu symptoms. Sutherland catheter remains in place. No issues verbalized by nursing staff. Remains in normal sinus rhythm. Pt has no questions at this time. Review of Systems Review of Systems: CONSTITUTIONAL: Denies weight loss/gain, fever and chills, fatigue, malaise, generalized weakness. RESPIRATORY: Denies SOB, cough, wheezing. CV: Denies palpitations, CP, lower extremity edema, orthopnea, PND. GI: Denies abdominal pain, nausea, vomiting and diarrhea. : No complaints, still has catheter in. MUSCULOSKELETAL: Denies myalgia. Mild L hip discomfort. SKIN: Denies rash and pruritus. NEUROLOGICAL: Denies headache, syncope, focal weakness, numbness, tingling. PSYCHIATRIC: Denies recent changes in mood. Denies anxiety and depression. Physical Exam Physical Exam: GENERAL: 81 yo elderly obese WF, pleasant. AAOx3. NAD. LUNGS: Right basilar crackles. No wheezes or rhonchi. Good air exchange. No accessory muscle use. CARDIOVASCULAR: Regular rate and rhythm. No M/G/R. No JVD. ABDOMEN: Soft, non-tender and non-distended. No palpable masses. Bowel sounds normoactive x 4 quad. EXTREMITIES: No edema. Non-tender. Peripheral pulses +2/4. Left hip incision dressed/dry. PSYCHIATRIC: Cooperative. Appropriate mood and affect. SKIN: Warm, dry, intact. No rashes or lesions. Results & Data Results & Data ([facility]) Vital Signs (Past 12 Hours) Vital Signs Temp Pulse Resp BP Pulse Ox Pulse Ox 08/24/21 12:03 92 08/24/21 11:41 36.6 C 69 18 134/82 91 08/24/21 08:07 36.7 C 67 18 130/73 91 08/24/21 02:55 36.9 C 73 20 158/73 H 96 Laboratory Results 08/24/21 07:16 08/24/21 07:16 Ma.7 Diagnostic Findings None Medications Administered Current Medications Acetaminophen (Acetaminophen 325 Mg Tab) 650 mg PO Q6H PRN PRN Reason: pain/fever Stop: 09/19/21 22:59 Last Admin: 08/24/21 03:42 Dose: 650 mg Albuterol (Albuterol Hfa 8 Gm Inhaler) 2 puffs INH Q6R PRN PRN Reason: sob/wheezing Stop: 09/19/21 22:59 Apixaban (Apixaban 5 Mg Tablet) 5 mg PO BID JANY Stop: 09/22/21 20:59 Last Admin: 08/24/21 08:11 Dose: 5 mg Bisacodyl (Bisacodyl 10 Mg Supp) 10 mg SD DAILY PRN PRN Reason: Constipation Stop: 09/19/21 22:59 Magnesium Sulfate/Dextrose (Magnesium Sulfate / D5w) 1 gm in 100 mls @ 50 mls/hr IV ONE ONE Stop: 08/24/21 16:14 Magnesium Hydroxide (Magnesium Hydroxide Susp 30 Ml Udc) 30 ml PO DAILY PRN PRN Reason: Constipation Stop: 09/19/21 22:59 Last Admin: 08/24/21 09:46 Dose: 30 ml Magnesium Oxide (Magnesium Oxide 400 Mg Tab) 400 mg PO BID [facility] Stop: 09/22/21 20:59 Last Admin: 08/24/21 08:11 Dose: 400 mg Metoprolol Tartrate (Metoprolol Tartrate 25 Mg Tab) 75 mg PO BID [facility] Stop: 09/22/21 08:59 Last Admin: 08/24/21 08:11 Dose: 75 mg Miconazole Nitrate (Miconazole Nitrate Powder 43 Gm) 1 appln EXT PRN PRN PRN Reason: Affected Skin Folds Stop: 09/20/21 17:09 Last Admin: 08/21/21 20:56 Dose: 1 appln Ondansetron HCl (Ondansetron Inj 2 Mg/Ml 2 Ml Vial) 4 mg IV Q6H PRN PRN Reason: Nausea And Vomiting Stop: 09/20/21 17:37 Last Admin: 08/21/21 18:14 Dose: 4 mg Oxycodone HCl (Oxycodone Hcl Ir 5 Mg Tab (Immediate Release)) 5 mg PO Q4H PRN PRN Reason: MODERATE Pain (4,5,6) & Pre PT Stop: 09/03/21 22:59 Last Admin: 08/24/21 09:46 Dose: 5 mg Senna/Docusate Sodium (Docusate Sodium/Senna 50/8.6mg Tab) 2 tab PO HS JANY Stop: 09/19/21 22:59 Last Admin: 08/22/21 22:43 Dose: 2 tab Simvastatin (Simvastatin 20 Mg Tab) 20 mg PO HS JANY Stop: 09/19/21 22:59 Last Admin: 08/22/21 22:44 Dose: 20 mg Sodium Chloride (Sodium Chloride 1 Gm Tablet) 2 gm PO DAILY JANY Stop: 09/23/21 08:59 Last Admin: 08/24/21 09:46 Dose: 2 gm PG Care Time/CCT Total # of Minutes Spent Total Time Spent with Patient: Total time spent is greater than 50% in coordination of care (as documented) at patient's floor/unit and/or counseling patient: Coding Level of Care Code 43916 Subseq Hosp Care Lvl 2 Diagnoses 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 M80.059A Fall W19.XXXA Encounter type: initial encounter Atrial fibrillation I48.0 Atrial fibrillation type: paroxysmal Hypertension I10 Hypertension type: essential hypertension Chronic kidney disease N18.9 Hyponatremia E87.1 Hypomagnesemia E83.42 Right shoulder pain M25.511 (1) Fall Encounter type: initial encounter Qualified Code(s): W19.XXXA - Unspecified fall, initial encounter (2) Atrial fibrillation Atrial fibrillation type: paroxysmal Qualified Code(s): I48.0 - Paroxysmal atrial fibrillation (3) Hypertension Hypertension type: essential hypertension Qualified Code(s): I10 - Essential (primary) hypertension
[2021-08-24] MEDS ORDERED: MAGNESIUM SULFATE / D5W 1 GM/100 ML BAG IV ONE (14:15)
[2021-08-24] MEDS: DOCUSATE SODIUM/SENNA 50/8.6MG TAB PO SCH (20:16)
[2021-08-24] MEDS: SIMVASTATIN 20 MG TAB PO SCH (20:16)
[2021-08-24] MEDS ORDERED: METOPROLOL TARTRATE 1 MG/ML VIAL IV STA (23:51)
[2021-08-25] MEDS: oxyCODONE HCL IR 5 MG TAB (IMMEDIATE RELEASE) PO PRN ×4 (03:11→22:03)
[2021-08-25 06:42] LABS: BUN Creatinine Ratio 21.5 (10-20); Blood Urea Nitrogen 21 mg/dl (7-18); Calcium 9.1 mg/dl (8.5-10.1); Carbon Dioxide 29 mmol/L (21-32); Chloride 94 mmol/L (98-107); Est GFR (African American) 61.1 ml/min; Est GFR (Non-African American) 52.7 ml/min; Glucose 101 mg/dl (70-99); Sodium 127 mmol/L (136-145)
[2021-08-25 07:29] LABS: Basophils # (auto) 0.04 K/uL (0-0.2); Basophils % (auto) 0.5 %; Eosinophils # (auto) 0.39 K/uL (0-0.5); Eosinophils % (auto) 5.1 %; Hemoglobin 11.4 g/dL (12.0-16.0); Immature Granulocytes # (auto) 0.03 K/uL (0.00-0.02); Immature Granulocytes % (auto) 0.4 %; Lymphocytes # (auto) 1.23 K/uL (1.2-3.4); Lymphocytes % (auto) 16.1 %; Mean Corpuscular Hemoglobin 29.2 pg (25-34); Mean Corpuscular Volume 87.2 fL (80-100); Mean Platelet Volume 8.8 fL (7.4-10.4); Monocytes # (auto) 1.34 K/uL (0.11-0.59); Monocytes % (auto) 17.6 %; Neutrophils # (auto) 4.59 K/uL (1.4-6.5); Neutrophils % (auto) 60.3 %; Platelet Count 229 K/uL (130-400); RDW Coefficient of Variation 13.6 % (11.5-14.5); RDW Standard Deviation 43.6 fL (36.4-46.3); White Blood Count 7.62 K/uL (4.8-10.8)
[2021-08-25 07:43] LABS: Mean Corpuscular Hgb Conc 33.5 g/dL (32-36)
[2021-08-25] MEDS: METOPROLOL TARTRATE 25 MG TAB PO SCH ×2 (09:03→19:53)
[2021-08-25] MEDS: MAGNESIUM OXIDE 400 MG TAB PO SCH ×3 (09:03→20:03)
[2021-08-25] MEDS: lisinopril 20 MG TAB PO SCH (09:04)
[2021-08-25] MEDS: SODIUM CHLORIDE 1 GM TABLET PO SCH (09:04)
[2021-08-25] MEDS: APIXABAN 5 MG TABLET PO SCH ×2 (09:04→19:52)
--- NOTE | 2021-08-25 10:16 | Orthopedic Progress Note ---
Date of Service August 25, 2021 Assessment & Plan (1) Subcapital fracture of left femur: Plan: POD #2 left hip cannulated screws PT/OT TTWB Resumed eliquis. SCDs and TEDs Pain management as written. Possible need for Rehab vs SNF pending PT results. Ortho will sign off at this time. Instructions placed in DC section. Please call with any questions. Admission and Anticipated Discharge Date Admission Date: August 20, 2021 Subjective POD 2 Pt sitting up in bed awake and alert. States the incision gives her a little pain off and on. Pain controlled at present. No other complaints. Physical Exam Physical Exam: Dressing C/D/I. Minimal to no swelling. No erythema. Thigh NT on palpation. Calves soft, NT. NV intact. Results & Data ([facility]) Vital Signs (Past 12 Hours) Vital Signs Temp Pulse Pulse Resp BP BP BP 08/25/21 07:44 36.5 C 75 18 136/79 08/25/21 07:24 63 08/25/21 03:12 36.7 C 67 18 148/64 H 08/25/21 00:00 69 144/81 H 08/24/21 23:00 65 08/24/21 22:49 37.4 C 66 19 115/68 Pulse Ox 08/25/21 07:44 94 08/25/21 07:24 08/25/21 03:12 94 08/25/21 00:00 08/24/21 23:00 08/24/21 22:49 92 Laboratory Results Laboratory Results WBC 7.62 K/uL (4.8-10.8) 08/25/21 06:45 RBC 3.90 M/uL (4.2-5.4) L 08/25/21 06:45 Hgb 11.4 g/dL (12.0-16.0) L 08/25/21 06:45 Hct 34.0 % (37-47) L 08/25/21 06:45 MCV 87.2 fL (80-100) 08/25/21 06:45 MCH 29.2 pg (25-34) 08/25/21 06:45 MCHC 33.5 g/dL (32-36) 08/25/21 06:45 RDW Std Deviation 43.6 fL (36.4-46.3) 08/25/21 06:45 RDW Coeff of Anastasiya 13.6 % (11.5-14.5) 08/25/21 06:45 Plt Count 229 K/uL (130-400) 08/25/21 06:45 MPV 8.8 fL (7.4-10.4) 08/25/21 06:45 Immature Gran % (Auto) 0.4 % 08/25/21 06:45 Neut % (Auto) 60.3 % 08/25/21 06:45 Lymph % (Auto) 16.1 % 08/25/21 06:45 [place] % (Auto) 17.6 % 08/25/21 06:45 Eos % (Auto) 5.1 % 08/25/21 06:45 Baso % (Auto) 0.5 % 08/25/21 06:45 Neut # (Auto) 4.59 K/uL (1.4-6.5) 08/25/21 06:45 Lymph # (Auto) 1.23 K/uL (1.2-3.4) 08/25/21 06:45 [place] # (Auto) 1.34 K/uL (0.11-0.59) H 08/25/21 06:45 Eos # (Auto) 0.39 K/uL (0-0.5) 08/25/21 06:45 Baso # (Auto) 0.04 K/uL (0-0.2) 08/25/21 06:45 Immature Gran # (Auto) 0.03 K/uL (0.00-0.02) H 08/25/21 06:45 Absolute Nucleated RBC Cancelled 08/25/21 05:38 Nucleated RBC % (auto) Cancelled 08/25/21 05:38 Neutrophils % (Manual) Cancelled 08/25/21 05:38 Band Neutrophils % Cancelled 08/25/21 05:38 Lymphocytes % (Manual) Cancelled 08/25/21 05:38 Prolymphocyte % Cancelled 08/25/21 05:38 Reactive Lymphs % (Man) Cancelled 08/25/21 05:38 Monocytes % (Manual) Cancelled 08/25/21 05:38 Eosinophils % (Manual) Cancelled 08/25/21 05:38 Basophils % (Manual) Cancelled 08/25/21 05:38 Metamyelocytes % (Man) Cancelled 08/25/21 05:38 Myelocytes % (Man) Cancelled 08/25/21 05:38 Promyelocytes % (Man) Cancelled 08/25/21 05:38 Blast Cells % (Manual) Cancelled 08/25/21 05:38 Plasma Cell % (Manual) Cancelled 08/25/21 05:38 Other Cells % Cancelled 08/25/21 05:38 Nucleated RBC % Cancelled 08/25/21 05:38 Neutrophils # (Manual) Cancelled 08/25/21 05:38 Band Neutrophils # Cancelled 08/25/21 05:38 Total Absolute Neuts Cancelled 08/25/21 05:38 Lymphocytes # (Manual) Cancelled 08/25/21 05:38 Prolymphocyte # Cancelled 08/25/21 05:38 Reactive Lymphs # Cancelled 08/25/21 05:38 Total Abs Lymphocytes Cancelled 08/25/21 05:38 Monocytes # (Manual) Cancelled 08/25/21 05:38 Eosinophils # (Manual) Cancelled 08/25/21 05:38 Basophils # (Manual) Cancelled 08/25/21 05:38 Metamyelocytes # (Man) Cancelled 08/25/21 05:38 Myelocytes # (Manual) Cancelled 08/25/21 05:38 Promyelocytes # (Man) Cancelled 08/25/21 05:38 Blast Cells # (Man) Cancelled 08/25/21 05:38 Plasma Cell # (Manual) Cancelled 08/25/21 05:38 Other Cells # Cancelled 08/25/21 05:38 Nucleated RBCs # (Man) Cancelled 08/25/21 05:38 Hypersegmented Neuts Cancelled 08/25/21 05:38 Hyposegmented Neuts Cancelled 08/25/21 05:38 Hypogranular Neuts Cancelled 08/25/21 05:38 Large Granular Lymphs Cancelled 08/25/21 05:38 # Lrg Granular Lymphs Cancelled 08/25/21 05:38 Hairy Cells Cancelled 08/25/21 05:38 Smudge Cells Cancelled 08/25/21 05:38 Toxic Granulation Cancelled 08/25/21 05:38 Toxic Vacuolation Cancelled 08/25/21 05:38 Dohle Bodies Cancelled 08/25/21 05:38 Harpreet Rods Cancelled 08/25/21 05:38 Platelet Estimate Cancelled 08/25/21 05:38 Hypogranular Platelets Cancelled 08/25/21 05:38 Clumped Platelets Cancelled 08/25/21 05:38 Giant Platelets Cancelled 08/25/21 05:38 Platelet Satelliting Cancelled 08/25/21 05:38 RBC Morphology Cancelled 08/25/21 05:38 Polychromasia Cancelled 08/25/21 05:38 Hypochromasia Cancelled 08/25/21 05:38 Poikilocytosis Cancelled 08/25/21 05:38 Basophilic Stippling Cancelled 08/25/21 05:38 Anisocytosis Cancelled 08/25/21 05:38 Microcytosis Cancelled 08/25/21 05:38 Macrocytosis Cancelled 08/25/21 05:38 Spherocytes Cancelled 08/25/21 05:38 Pappenheimer Bodies Cancelled 08/25/21 05:38 Sickle Cells Cancelled 08/25/21 05:38 Target Cells Cancelled 08/25/21 05:38 Tear Drop Cells Cancelled 08/25/21 05:38 Ovalocytes Cancelled 08/25/21 05:38 Stomatocytes Cancelled 08/25/21 05:38 [place] Bodies Cancelled 08/25/21 05:38 Echinocytes Cancelled 08/25/21 05:38 Acanthocytes (Spur) Cancelled 08/25/21 05:38 Rouleaux Cancelled 08/25/21 05:38 RBC Agglutinates Cancelled 08/25/21 05:38 Schistocytes Cancelled 08/25/21 05:38 RBC Morph Comment Cancelled 08/25/21 05:38 Sezary Cell Cancelled 08/25/21 05:38 PT 9.8 Seconds (9.0-12.0) 08/20/21 18:10 INR 1.0 (0.9-1.1) 08/20/21 18:10 APTT 28.2 Seconds (21.0-31.0) 08/20/21 18:10 PTT Ratio 1.1 08/20/21 18:10 Sodium 127 mmol/L (136-145) L 08/25/21 05:38 Potassium TNP 08/25/21 05:38 Chloride 94 mmol/L (98-107) L 08/25/21 05:38 Carbon Dioxide 29 mmol/L (21-32) 08/25/21 05:38 Anion Gap 4.0 (3-11) 08/25/21 05:38 BUN 21 mg/dl (7-18) H 08/25/21 05:38 Creatinine 0.99 mg/dl (0.6-1.2) 08/25/21 05:38 Est Cr Clr Drug Dosing 46.0 ml/min 08/25/21 05:38 Est GFR ( Amer) 61.1 ml/min 08/25/21 05:38 Est GFR (Non-Af Amer) 52.7 ml/min 08/25/21 05:38 BUN/Creatinine Ratio 21.5 (10-20) H 08/25/21 05:38 Glucose 101 mg/dl (70-99) H 08/25/21 05:38 Osmolality 274 mOsm/kg (280-300) L 08/22/21 13:55 Calcium 9.1 mg/dl (8.5-10.1) 08/25/21 05:38 Phosphorus 2.9 mg/dl (2.5-4.9) 08/23/21 14:07 Magnesium TNP 08/25/21 05:38 Total Bilirubin 0.4 mg/dl (0.2-1) 08/20/21 18:10 AST 48 U/L (15-37) H 08/20/21 18:10 ALT 47 U/L (12-78) 08/20/21 18:10 Alkaline Phosphatase 180 U/L (45-117) H 08/20/21 18:10 Total Protein 8.2 gm/dl (6.4-8.2) 08/20/21 18:10 Albumin 2.8 gm/dl (3.4-5.0) L 08/23/21 14:07 Globulin 4.2 gm/dl (2.5-4.0) H 08/20/21 18:10 Albumin/Globulin Ratio 1.0 (0.9-2) 08/20/21 18:10 25-OH Vitamin D Total 70.0 ng/ml (30-100) 08/21/21 05:58 Urine Color Yellow 08/20/21 18:20 Urine Appearance Clear (Clear) 08/20/21 18:20 Urine pH 7.5 (4.5-7.5) 08/20/21 18:20 Ur Specific [place] 1.008 (1.000-1.030) 08/20/21 18:20 Urine Protein Negative (Negative) 08/20/21 18:20 Urine Glucose (UA) Negative (Negative) 08/20/21 18:20 Urine Ketones Negative (Negative) 08/20/21 18:20 Urine Blood Trace (Negative) H 08/20/21 18:20 Urine Nitrite Negative (Negative) 08/20/21 18:20 Urine Bilirubin Negative (Negative) 08/20/21 18:20 Urine Urobilinogen Negative (Negative) 08/20/21 18:20 Ur Leukocyte Esterase Negative (Negative) 08/20/21 18:20 Urine WBC (Auto) 1-5 /hpf (0-5) 08/20/21 18:20 Urine RBC (Auto) 0-4 /hpf (0-4) 08/20/21 18:20 U Hyaline Cast (Auto) 0 /lpf (0-5) 08/20/21 18:20 U Epithel Cells (Auto) 0-5 /lpf (0-5) 08/20/21 18:20 Urine Bacteria (Auto) Negative (Negative) 08/20/21 18:20 Urine Osmolality 164 mOsm/kg (500-800) L 08/24/21 Unknown Ur Random Sodium 17 mmol/L 08/22/21 15:30 COVID-19 Eval Order Covid19 at [facility] 08/20/21 18:28 SARS-CoV-2 (PCR) NEGATIVE (Negative) 08/20/21 18:28 Blood Type O Positive 08/20/21 18:18 Antibody Screen NEGATIVE 08/20/21 18:18
--- NOTE | 2021-08-25 12:16 | Electrocardiogram Report ---
Test Reason : Blood Pressure : / mmHG Vent. Rate : 102 BPM Atrial Rate : 102 BPM P-R Int : 200 ms QRS Dur : 076 ms QT Int : 340 ms P-R-T Axes : 041 008 011 degrees QTc Int : 443 ms Sinus rhythm with paroxysms of atrial tachycardia Septal infarct , age undetermined Abnormal ECG When compared with ECG of 22-AUG-2021 13:30, Significant changes have occurred Confirmed by Nasir Lane ([id number]) on 08/25/2021 12:15:25 PM Referred By: REFERRED SELF Confirmed By:Nasir Lane
--- NOTE | 2021-08-25 12:31 | Nephrology Progress Note ---
Date of Service August 25, 2021 Assessment & Plan (1) Hyponatremia: Plan: Chronic hyponatremia for last 1 >year, Na around 125 to 130, high U osm. Admitted with a sodium 30 which dropped to 20 obtain slowly improved to 20 this in osmolality slightly low sodium. Currently otherwise asymptomatic. Hyponatremia due to combination of factors including Thiazide diuretics, pain, hypotension. Clinically she seems to be slightly volume depleted ? NPO status Sodium dropped to 127. Renal function close to baseline, STACY resolved. -- continue on Sodium chloride 2 grams daily, liberalize salt in diet, limit free water intake to less than 1500 mL per day, repeat Na this afternoon. --In future avoid thiazide diuretics, if diuretics needed, suggest to use loop diuretics. Will follow (2) Acute kidney injury: (3) Hypomagnesemia: (4) Anemia: (5) Hypertension: (6) Subcapital fracture of left femur: Admission and Anticipated Discharge Date Admission Date: August 20, 2021 Chaya Concepcion was seen and examined in her room this morning. Overall she has been feeling well, denies any pain. She has been participating in physical therapy. Sodium again dropped to 127, electrolyte acceptable, renal function improved, creatinine at baseline. Review of Systems Review of Systems: Detail ROS was unremarkable. Physical Exam Constitutional: WD/WN, vitals as above no acute distress Eyes: + anicteric sclerae Respiratory: normal respiratory effort; no respiratory distress and no cough Auscultation: lungs clear to auscultation bilaterally Cardiovascular: Rate/Rhythm: regular rate and regular rhythm Heart Sounds: normal S1 and normal S2 Extremities: no edema Skin: normal turgor; no rashes Neurologic: no focal motor deficits and not confused Psychiatric: Orientation: alert and oriented x 3 Affect: euthymic affect Results & Data ([facility]) Vital Signs (Past 12 Hours) Vital Signs Temp Pulse Pulse Resp BP BP Pulse Ox 08/25/21 11:00 36.8 C 73 18 129/72 92 08/25/21 07:44 36.5 C 75 18 136/79 94 08/25/21 07:24 63 08/25/21 03:12 36.7 C 67 18 148/64 H 94 PG Care Time/CCT Total # of Minutes Spent Total Time Spent with Patient: Total time spent is greater than 50% in coordination of care (as documented) at patient's floor/unit and/or counseling patient: Coding Level of Care Code 83005 Subseq Hosp Care Lvl 2 Diagnoses Hyponatremia E87.1 Acute kidney injury N17.9 Hypomagnesemia E83.42 Anemia D64.9 Hypertension I10 Hypertension type: essential hypertension Subcapital fracture of left femur S72.012A (1) Hypertension Hypertension type: essential hypertension Qualified Code(s): I10 - Essential (primary) hypertension
--- NOTE | 2021-08-25 17:15 | Hospitalist Progress Note ---
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 every 4 hours as needed Continue PT OT Case management consulted, pending rehab placement ARMINDA resumed Eliquis resumed (2) Fall: Plan: As above (3) Atrial fibrillation: Plan: Patient with refractory A. fib 08/22, treated with Cardizem gtt. and converted to NSR Currently on Lopressor 75 mg p.o. twice daily, Cardizem discontinued Adequate rate control in sinus today Eliquis resumed (4) Hypertension: Plan: Adequate control today - Triamterene/HCTZ discontinued do not continue on discharge 2/2 hyponatremia. Continue home amlodipine Metoprolol as above Lisinopril resumed Continue to follow (5) Chronic kidney disease: Plan: * CKD stage 3, creat at baseline (6) Hyponatremia: Plan: - Chronic over the past year. - Stoppred Triamterene/HCTZ. Nephrology consulted. Recommend sodium chloride 2 g daily, liberalize salt in diet, limit free water to 1500 cc daily and avoiding thiazides in future BMP daily (7) Hypomagnesemia: Plan: Continue Mag-Ox 400 mg p.o. twice daily (8) Right shoulder pain: Plan: - Arthritic changes, nothing acute Admission and Anticipated Discharge Date Admission Date: August 20, 2021 Subjective 48 new seen at the bedside today. She reports she was out of bed earlier today and did well, with some pain in her left hip with prolonged movement and weight Otherwise denies pain and reports she is ready to go to rehab when able. Fever, chills, sweats, difficulty breathing, shortness of breath, lightheadedness, dizziness, numbness, tingling. Pleasant, no questions or concerns at time of assessment. She denies palpitations/heart racing. Review of Systems Review of Systems: All systems reviewed & are unremarkable except as noted in Subjective Physical Exam Physical Exam: General: A&Ox3. NAD. Cooperative. HEENT: Atraumatic, normocephalic. Pulm: CTAB A&P. -wheezes, -rales, -rhonchi. Symmetrical chest rise. No increase work of breathing. No respiratory distress. Cardiac: RRR, -mrg. Radial pulses intact and symmetrical. Abdominal: Nontender, nondistended, soft. BS present. 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 M80.059A Fall W19.XXXA Encounter type: initial encounter Atrial fibrillation I48.0 Atrial fibrillation type: paroxysmal Hypertension I10 Hypertension type: essential hypertension Chronic kidney disease N18.9 Hyponatremia E87.1 Hypomagnesemia E83.42 Right shoulder pain M25.511 (1) Fall Encounter type: initial encounter Qualified Code(s): W19.XXXA - Unspecified fall, initial encounter (2) Atrial fibrillation Atrial fibrillation type: paroxysmal Qualified Code(s): I48.0 - Paroxysmal atrial fibrillation (3) Hypertension Hypertension type: essential hypertension Qualified Code(s): I10 - Essential (primary) hypertension
[2021-08-25] MEDS: SIMVASTATIN 20 MG TAB PO SCH (19:52)
[2021-08-25] MEDS: DOCUSATE SODIUM/SENNA 50/8.6MG TAB PO SCH (20:01)
[2021-08-26 07:08] LABS: Basophils # (auto) 0.02 K/uL (0-0.2); Basophils % (auto) 0.3 %; Eosinophils # (auto) 0.27 K/uL (0-0.5); Eosinophils % (auto) 3.4 %; Hematocrit (blood only) 31.6 % (37-47); Hemoglobin 10.9 g/dL (12.0-16.0); Immature Granulocytes # (auto) 0.02 K/uL (0.00-0.02); Immature Granulocytes % (auto) 0.3 %; Lymphocytes # (auto) 1.52 K/uL (1.2-3.4); Mean Corpuscular Hemoglobin 29.5 pg (25-34); Mean Corpuscular Hgb Conc 34.5 g/dL (32-36); Mean Corpuscular Volume 85.4 fL (80-100); Mean Platelet Volume 8.3 fL (7.4-10.4); Monocytes # (auto) 0.97 K/uL (0.11-0.59); Monocytes % (auto) 12.2 %; Neutrophils # (auto) 5.18 K/uL (1.4-6.5); Neutrophils % (auto) 64.8 %; Platelet Count 244 K/uL (130-400); RDW Coefficient of Variation 13.9 % (11.5-14.5); RDW Standard Deviation 43.5 fL (36.4-46.3); White Blood Count 7.98 K/uL (4.8-10.8)
[2021-08-26 07:45] LABS: Albumin Level 2.3 gm/dl (3.4-5.0); BUN Creatinine Ratio 23.5 (10-20); Calcium 8.9 mg/dl (8.5-10.1); Creatinine Clr Calc Pharmacy 47.7 ml/min; Est GFR (African American) 64.2 ml/min; Est GFR (Non-African American) 55.4 ml/min; Phosphorus 2.7 mg/dl (2.5-4.9); Potassium 3.8 mmol/L (3.5-5.1)
[2021-08-26] MEDS: MAGNESIUM OXIDE 400 MG TAB PO SCH ×2 (08:32→19:41)
[2021-08-26] MEDS: oxyCODONE HCL IR 5 MG TAB (IMMEDIATE RELEASE) PO PRN ×2 (08:32→19:40)
[2021-08-26] MEDS: METOPROLOL TARTRATE 25 MG TAB PO SCH ×2 (08:33→19:40)
[2021-08-26] MEDS: lisinopril 20 MG TAB PO SCH (08:33)
[2021-08-26] MEDS: APIXABAN 5 MG TABLET PO SCH ×2 (08:33→19:41)
[2021-08-26] MEDS: SODIUM CHLORIDE 1 GM TABLET PO SCH (08:33)
[2021-08-26] MEDS ORDERED: TOLVAPTAN 15 MG TABLET PO STA (10:28)
--- NOTE | 2021-08-26 10:31 | Nephrology Progress Note ---
Date of Service August 26, 2021 Assessment & Plan (1) Hyponatremia: Plan: Chronic hyponatremia for last 1 >year, Na around 125 to 130, high U osm. Admitted with a sodium 30 which dropped to 20 obtain slowly improved to 20 this in osmolality slightly low sodium. Currently otherwise asymptomatic. Hyponatremia due to combination of factors including Thiazide diuretics, pain, hypotension. Clinically she seems to be slightly volume depleted ? NPO status Sodium dropped to 128. Renal function close to baseline, STACY resolved. -- continue on Sodium chloride 2 grams daily, liberalize salt in diet --tolvaptan 15 mg po x 1 dose now Will follow (2) Acute kidney injury: (3) Hypomagnesemia: (4) Anemia: (5) Hypertension: (6) Subcapital fracture of left femur: Admission and Anticipated Discharge Date Admission Date: August 20, 2021 Subjective Carlene was seen this morning, she feels otherwise well, denies any acute distress. Has been participating with physical therapy. On salt tablet but sodium again dropped to 128, blood pressure acceptable, other electrolyte acceptable. Review of Systems Review of Systems: Detail ROS was unremarkable. Physical Exam Constitutional: WD/WN, vitals as above no acute distress Eyes: + anicteric sclerae Respiratory: normal respiratory effort; no respiratory distress and no cough Auscultation: lungs clear to auscultation bilaterally Cardiovascular: Rate/Rhythm: regular rate and regular rhythm Heart Sounds: normal S1 and normal S2 Extremities: no edema Skin: normal turgor; no rashes Neurologic: no focal motor deficits and not confused Psychiatric: Orientation: alert and oriented x 3 Affect: euthymic affect Results & Data ([facility]) Vital Signs (Past 12 Hours) Vital Signs Temp Pulse Pulse Resp BP Pulse Ox 08/26/21 08:00 37.3 C 82 20 156/71 H 95 08/26/21 07:48 70 08/26/21 04:08 37.0 C 71 18 149/75 H 94 08/26/21 01:00 66 08/25/21 23:26 37.0 C 65 18 146/79 H 91 PG Care Time/CCT Total # of Minutes Spent Total Time Spent with Patient: Total time spent is greater than 50% in coordination of care (as documented) at patient's floor/unit and/or counseling patient: Coding Level of Care Code 83282 Subseq Hosp Care Lvl 2 Diagnoses Hyponatremia E87.1 Acute kidney injury N17.9 Hypomagnesemia E83.42 Anemia D64.9 Hypertension I10 Hypertension type: essential hypertension Subcapital fracture of left femur S72.012A (1) Hypertension Hypertension type: essential hypertension Qualified Code(s): I10 - Essential (primary) hypertension
--- NOTE | 2021-08-26 18:21 | Hospitalist Progress Note ---
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 every 4 hours as needed Continue PT OT Case management consulted, pending rehab placement. Referrals placed, [facility] for [facility] and [facility]. ARMINDA resumed Eliquis resumed Patient febrile 2x today, without infectious symptoms. Tension bullae are present at Tegaderm site, but do not appear infected without overlying signs of cellulitis. Surgical incision is clean, dry, intact without purulence or erythema. Diminished air movement in bases, improves with effort and forced cough. Suspect febrile likely due to atelectasis, encouraged to use incentive spirometer and will continue to follow clinically at this time. (2) Fall: Plan: As above (3) Atrial fibrillation: Plan: Patient with refractory A. fib 08/22, treated with Cardizem gtt. and converted to NSR Currently on Lopressor 75 mg p.o. twice daily, Cardizem discontinued Adequate rate control in sinus today Eliquis resumed (4) Hypertension: Plan: Adequate control today - Triamterene/HCTZ discontinued do not continue on discharge 2/2 hyponatremia. Continue home amlodipine Metoprolol as above Lisinopril resumed Continue to follow (5) Chronic kidney disease: Plan: * CKD stage 3, creat at baseline (6) Hyponatremia: Plan: - Chronic over the past year. - Stoppred Triamterene/HCTZ. Nephrology consulted. Recommend sodium chloride 2 g daily, liberalize salt in diet, limit free water to 1500 cc daily and avoiding thiazides in future BMP daily (7) Hypomagnesemia: Plan: Continue Mag-Ox 400 mg p.o. twice daily (8) Right shoulder pain: Plan: - Arthritic changes, nothing acute Admission and Anticipated Discharge Date Admission Date: August 20, 2021 Subjective Pleasant, no acute distress. Reports some pain in her hip when engaging with rehab, not at time of assessment. Patient reports her pain is improved from prior. She denies shortness of breath, difficulty breathing, cough, fever, chills, Sweats, rigors, nausea, vomiting, diarrhea. She has not been using her incentive spirometer. Review of Systems Review of Systems: All systems reviewed & are unremarkable except as noted in Subjective Physical Exam Physical Exam: General: A&Ox3. NAD. Cooperative. HEENT: Atraumatic, normocephalic. Pupils equal and reactive to light and accommodation. Patient with resting strabismus/exotropia which corrects with intention focus. Pulm: Moderate air movement somewhat diminished in the bases without overt - wheezes, -rales, -rhonchi. Symmetrical chest rise. No increase work of breathing. No respiratory distress. Cardiac: RRR, -mrg. Radial pulses intact and symmetrical. Abdominal: Nontender, nondistended, soft. BS present. Extremity: Left hip surgical site with fresh bandage, clean/dry/intact. Some tension bullae at border of prior tegaderm with clear fluid without purulence/erythema suggestive of cellulitis. Nontender to palpation. 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 M80.059A Fall W19.XXXA Encounter type: initial encounter Atrial fibrillation I48.0 Atrial fibrillation type: paroxysmal Hypertension I10 Hypertension type: essential hypertension Chronic kidney disease N18.9 Hyponatremia E87.1 Hypomagnesemia E83.42 Right shoulder pain M25.511 (1) Fall Encounter type: initial encounter Qualified Code(s): W19.XXXA - Unspecified fall, initial encounter (2) Atrial fibrillation Atrial fibrillation type: paroxysmal Qualified Code(s): I48.0 - Paroxysmal atrial fibrillation (3) Hypertension Hypertension type: essential hypertension Qualified Code(s): I10 - Essential (primary) hypertension
[2021-08-26] MEDS: SIMVASTATIN 20 MG TAB PO SCH (19:41)
[2021-08-26] MEDS: DOCUSATE SODIUM/SENNA 50/8.6MG TAB PO SCH (19:43)
[2021-08-27] MEDS: oxyCODONE HCL IR 5 MG TAB (IMMEDIATE RELEASE) PO PRN ×2 (02:06→22:04)
[2021-08-27 05:44] LABS: Basophils # (auto) 0.03 K/uL (0-0.2); Basophils % (auto) 0.3 %; Eosinophils # (auto) 0.33 K/uL (0-0.5); Eosinophils % (auto) 3.5 %; Hematocrit (blood only) 31.6 % (37-47); Hemoglobin 10.9 g/dL (12.0-16.0); Immature Granulocytes # (auto) 0.06 K/uL (0.00-0.02); Immature Granulocytes % (auto) 0.6 %; Lymphocytes # (auto) 1.54 K/uL (1.2-3.4); Lymphocytes % (auto) 16.5 %; Mean Corpuscular Hemoglobin 30.5 pg (25-34); Mean Corpuscular Hgb Conc 34.5 g/dL (32-36); Mean Corpuscular Volume 88.5 fL (80-100); Mean Platelet Volume 8.5 fL (7.4-10.4); Monocytes # (auto) 1.15 K/uL (0.11-0.59); Monocytes % (auto) 12.3 %; Neutrophils # (auto) 6.23 K/uL (1.4-6.5); Neutrophils % (auto) 66.8 %; Platelet Count 254 K/uL (130-400); RDW Standard Deviation 45.7 fL (36.4-46.3); Red Blood Count 3.57 M/uL (4.2-5.4); White Blood Count 9.34 K/uL (4.8-10.8)
[2021-08-27 06:18] LABS: BUN Creatinine Ratio 21.4 (10-20); Calcium 8.9 mg/dl (8.5-10.1); Creatinine Clr Calc Pharmacy 38.4 ml/min; Est GFR (African American) 49.4 ml/min; Est GFR (Non-African American) 42.6 ml/min; Potassium 4.5 mmol/L (3.5-5.1)
[2021-08-27] MEDS: APIXABAN 5 MG TABLET PO SCH ×2 (08:12→20:33)
[2021-08-27] MEDS: lisinopril 20 MG TAB PO SCH (08:12)
[2021-08-27] MEDS: SODIUM CHLORIDE 1 GM TABLET PO SCH (08:12)
[2021-08-27] MEDS: MAGNESIUM OXIDE 400 MG TAB PO SCH ×2 (08:13→20:34)
[2021-08-27] MEDS: METOPROLOL TARTRATE 25 MG TAB PO SCH ×2 (08:13→20:34)
--- NOTE | 2021-08-27 09:08 | Hospitalist Progress Note ---
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 every 4 hours as needed Continue PT OT Case management consulted, pending rehab placement. Referrals placed, [facility] and [facility]. ARMINDA resumed Eliquis resumed (2) Fall: Plan: As above (3) Atrial fibrillation: Plan: Patient with refractory A. fib 08/22, treated with Cardizem gtt. and converted to NSR Currently on Lopressor 75 mg p.o. twice daily, Cardizem discontinued Adequate rate control in sinus today Eliquis resumed (4) Hypertension: Plan: Adequate control today - Triamterene/HCTZ discontinued do not continue on discharge 2/2 hyponatremia. Continue home amlodipine Metoprolol as above Lisinopril resumed Continue to follow (5) Chronic kidney disease: Plan: * CKD stage 3, creat at baseline (6) Hyponatremia: Plan: - Chronic over the past year. - Stoppred Triamterene/HCTZ. Nephrology consulted. Recommend sodium chloride 2 g daily, liberalize salt in diet, limit free water to 1500 cc daily and avoiding thiazides in future BMP daily (7) Hypomagnesemia: Plan: Continue Mag-Ox 400 mg p.o. twice daily (8) Right shoulder pain: Plan: - Arthritic changes, nothing acute (9) UTI (urinary tract infection): Plan: - Pt febrile 2x as previously noted. Developed dysuria today - Urine with foul odor - Suspect UTI - UA pending, UC pending that was a noise - Empiric rocephin 1g daily. Pt tolerated periop cefalexin without allergy/rnx Admission and Anticipated Discharge Date Admission Date: August 20, 2021 Subjective Patient is seen at the bedside today. She reports she feels okay, but has developed some difficulty urinating this morning and some burning with urination. Per nursing urine had a foul smell. UA collected and sent, suspect UTI likely the cause of her symptoms and previous fevers. Tolerated. Keflex well despite past history of amoxicillin/penicillin allergy. Discussed we will treat with ceftriaxone empirically and check urine culture. Today patient continues to have some itching at the bandage at her surgical site, but otherwise reports she feels well. Denies fever/chills/sweats this morning. Denies abdominal pain. Denies nausea/vomiting. Review of Systems Review of Systems: All systems reviewed & are unremarkable except as noted in Subjective Physical Exam Physical Exam: General: A&Ox3. NAD. Cooperative. HEENT: Atraumatic, normocephalic. Pupils equal and reactive to light and accommodation. Patient with resting strabismus/exotropia which corrects with intention focus. Pulm: Moderate air movement somewhat diminished in the bases without overt - wheezes, -rales, -rhonchi. Symmetrical chest rise. No increase work of breathing. No respiratory distress. Cardiac: RRR, -mrg. Radial pulses intact and symmetrical. Abdominal: Nontender, nondistended, soft. BS present. Extremity: Left hip surgical site with fresh bandage, clean/dry/intact. Some tension bullae at border of prior tegaderm with clear fluid without purulence/erythema suggestive of cellulitis. Nontender to palpation. 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 (1) Atrial fibrillation Atrial fibrillation type: paroxysmal Qualified Code(s): I48.0 - Paroxysmal atrial fibrillation (2) Hypertension Hypertension type: essential hypertension Qualified Code(s): I10 - Essential (primary) hypertension (3) Fall Encounter type: initial encounter Qualified Code(s): W19.XXXA - Unspecified fall, initial encounter
[2021-08-27] MEDS ORDERED: cefTRIAXone SODIUM 1,000 MG in DEXTROSE 5% 50 ML IV SCH (09:15)
[2021-08-27] MEDS: MAGNESIUM HYDROXIDE SUSP 30 ML UDC PO PRN (09:31)
[2021-08-27] MEDS: cefTRIAXone SODIUM 2,000 MG in DEXTROSE 5% 50 ML IV SCH (10:35)
--- NOTE | 2021-08-27 10:39 | Nephrology Progress Note ---
Date of Service August 27, 2021 Assessment & Plan (1) Hyponatremia: Plan: Chronic hyponatremia for last 1 >year, Na around 125 to 130, high U osm. Admitted with a sodium 30 which dropped to 20 obtain slowly improved to 20 this in osmolality slightly low sodium. Currently otherwise asymptomatic. Hyponatremia due to combination of factors including Thiazide diuretics, pain, hypotension. Clinically she seems to be slightly volume depleted ? NPO status Sodium improved to 132. Renal function close to baseline, STACY resolved. -- continue on Sodium chloride 2 grams daily, liberalize salt in diet Will sign off. (2) Acute kidney injury: (3) Hypomagnesemia: (4) Anemia: (5) Hypertension: (6) Subcapital fracture of left femur: Admission and Anticipated Discharge Date Admission Date: August 20, 2021 Chaya Concepcion was seen this morning, she feels otherwise well, denies any acute distress. Has been participating with physical therapy. On salt tablet and had 1 dose of Tolvaptan yesterday sodium improved to 132, blood pressure acceptable, other electrolyte acceptable. C/O dysuria this am. Review of Systems Review of Systems: Detail ROS was unremarkable. Physical Exam Constitutional: WD/WN, vitals as above no acute distress Eyes: + anicteric sclerae Respiratory: normal respiratory effort; no respiratory distress and no cough Auscultation: lungs clear to auscultation bilaterally Cardiovascular: Rate/Rhythm: regular rate and regular rhythm Extremities: no edema Skin: normal turgor; no rashes Neurologic: no focal motor deficits and not confused Psychiatric: Orientation: alert and oriented x 3 Affect: euthymic affect Results & Data ([facility]) Vital Signs (Past 12 Hours) Vital Signs Temp Pulse Pulse Pulse Resp BP Pulse Ox 08/27/21 07:35 36.5 C 88 18 117/76 92 08/27/21 07:00 74 08/27/21 03:02 72 16 08/26/21 23:00 78 PG Care Time/CCT Total # of Minutes Spent Total Time Spent with Patient: Total time spent is greater than 50% in coordination of care (as documented) at patient's floor/unit and/or counseling patient: Coding Level of Care Code 91578 Subseq Hosp Care Lvl 2 Diagnoses Hyponatremia E87.1 Acute kidney injury N17.9 Hypomagnesemia E83.42 Anemia D64.9 Hypertension I10 Hypertension type: essential hypertension Subcapital fracture of left femur S72.012A (1) Hypertension Hypertension type: essential hypertension Qualified Code(s): I10 - Essential (primary) hypertension
[2021-08-27 13:42] LABS: Appearance Urine Cloudy (Clear); Bacteria Urine Automated 1+ (Negative); Bilirubin Urine Negative (Negative); Blood Urine 2+ (Negative); Color Urine Yellow; Glucose Urine UA Negative (Negative); Ketones Urine Negative (Negative); Leukocyte Esterase Urine 3+ (Negative); Nitrite Urine Positive (Negative); Specific Gravity Urine 1.011 (1.000-1.030); Urobilinogen Urine Negative (Negative); WBC Urine Automated >30 /hpf (0-5); pH Urine 7.5 (4.5-7.5)
[2021-08-27 13:47] LABS: Protein Urine Trace (Negative)
[2021-08-27 15:14] LABS: RBC Urine Automated 0-4 /hpf (0-4)
[2021-08-27] MEDS: SIMVASTATIN 20 MG TAB PO SCH (20:35)
[2021-08-27] MEDS: DOCUSATE SODIUM/SENNA 50/8.6MG TAB PO SCH (20:37)
[2021-08-28] MEDS: oxyCODONE HCL IR 5 MG TAB (IMMEDIATE RELEASE) PO PRN ×3 (05:34→20:14)
[2021-08-28 06:38] LABS: Basophils # (auto) 0.02 K/uL (0-0.2); Basophils % (auto) 0.2 %; Eosinophils % (auto) 4.7 %; Hematocrit (blood only) 31.3 % (37-47); Hemoglobin 10.4 g/dL (12.0-16.0); Immature Granulocytes # (auto) 0.04 K/uL (0.00-0.02); Immature Granulocytes % (auto) 0.5 %; Lymphocytes # (auto) 1.15 K/uL (1.2-3.4); Lymphocytes % (auto) 13.5 %; Mean Corpuscular Hemoglobin 29.5 pg (25-34); Mean Corpuscular Hgb Conc 33.2 g/dL (32-36); Mean Corpuscular Volume 88.9 fL (80-100); Mean Platelet Volume 8.4 fL (7.4-10.4); Monocytes # (auto) 1.27 K/uL (0.11-0.59); Monocytes % (auto) 14.9 %; Neutrophils # (auto) 5.64 K/uL (1.4-6.5); Neutrophils % (auto) 66.2 %; Platelet Count 297 K/uL (130-400); RDW Coefficient of Variation 13.9 % (11.5-14.5); RDW Standard Deviation 45.6 fL (36.4-46.3); Red Blood Count 3.52 M/uL (4.2-5.4); White Blood Count 8.52 K/uL (4.8-10.8)
[2021-08-28 07:11] LABS: BUN Creatinine Ratio 24.7 (10-20); Calcium 9.1 mg/dl (8.5-10.1); Est GFR (Non-African American) 56.1 ml/min; Potassium 3.9 mmol/L (3.5-5.1)
[2021-08-28] MEDS: cefTRIAXone SODIUM 2,000 MG in DEXTROSE 5% 50 ML IV SCH (09:20)
[2021-08-28] MEDS: APIXABAN 5 MG TABLET PO SCH ×2 (09:20→20:11)
[2021-08-28] MEDS: MAGNESIUM OXIDE 400 MG TAB PO SCH ×2 (09:20→20:11)
[2021-08-28] MEDS: METOPROLOL TARTRATE 25 MG TAB PO SCH ×2 (09:20→20:11)
[2021-08-28] MEDS: SODIUM CHLORIDE 1 GM TABLET PO SCH (09:20)
[2021-08-28] MEDS: lisinopril 20 MG TAB PO SCH (09:20)
--- NOTE | 2021-08-28 12:01 | Hospitalist Progress Note ---
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 every 4 hours as needed Continue PT OT Case management consulted, pending rehab placement. Referrals placed, [facility] and [facility]. Continue ARMINDA Continue Eliquis (2) Fall: Plan: As above (3) Atrial fibrillation: Plan: Patient with refractory A. fib 08/22, treated with Cardizem gtt. and converted to NSR Currently on Lopressor 75 mg p.o. twice daily, Cardizem discontinued Adequate rate control in sinus today Continue Eliquis (4) Hypertension: Plan: Adequate control today - Triamterene/HCTZ discontinued do not continue on discharge 2/2 hyponatremia. Continue home amlodipine Metoprolol as above Continue lisinopril Continue to follow (5) Chronic kidney disease: Plan: * CKD stage 3, creat at baseline (6) Hyponatremia: Plan: - Chronic over the past year. - Stoppred Triamterene/HCTZ. Nephrology consulted. Recommend continuing sodium chloride 2 g daily, liberalize salt in diet, limit free water to 1500 cc daily and avoiding thiazides in future BMP daily (7) Hypomagnesemia: Plan: Continue Mag-Ox 400 mg p.o. twice daily (8) Right shoulder pain: Plan: - Arthritic changes, nothing acute (9) UTI (urinary tract infection): Plan: - Pt febrile 2x as previously noted. Developed dysuria and urine with foul odor during admission - Suspect UTI. Dysuria resolved 08/28 with treatment below, afebrile. UC positive for GNB, GPC mixed - Empiric rocephin 1g daily. Pt tolerated periop cefalexin without allergy/rnx Admission and Anticipated Discharge Date Admission Date: August 20, 2021 Subjective Patient reports she feels well today. She no longer has burning with urination. She feels she is peeing normally. No fever/chills/sweats. She continues to have some pain in her left hip after ambulation, but overall improved from prior. Denies abdominal pain. Ate breakfast well without nausea/vomiting. No additional questions or concerns, aware she is pending placement at this time. Review of Systems Review of Systems: All systems reviewed & are unremarkable except as noted in Subjective Physical Exam Physical Exam: General: A&Ox3. NAD. Cooperative. HEENT: Atraumatic, normocephalic. Pupils equal and reactive to light and accommodation. Patient with resting strabismus/exotropia which corrects with intention focus. Pulm: Moderate air movement without overt -wheezes, -rales, -rhonchi. Sym metrical chest rise. No increase work of breathing. No respiratory distress. Cardiac: RRR, -mrg. Radial pulses intact and symmetrical. Abdominal: Nontender, nondistended, soft. BS present. Extremity: Left hip surgical site with fresh bandage, clean/dry/intact. Some tension bullae at border of prior tegaderm with clear fluid without purulence/erythema. Improved from prior. Nontender to palpation. 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 (1) Fall Encounter type: initial encounter Qualified Code(s): W19.XXXA - Unspecified fall, initial encounter (2) Atrial fibrillation Atrial fibrillation type: paroxysmal Qualified Code(s): I48.0 - Paroxysmal atrial fibrillation (3) Hypertension Hypertension type: essential hypertension Qualified Code(s): I10 - Essential (primary) hypertension
[2021-08-28] MEDS: SIMVASTATIN 20 MG TAB PO SCH (20:11)
[2021-08-28] MEDS: DOCUSATE SODIUM/SENNA 50/8.6MG TAB PO SCH (20:11)
[2021-08-29] MEDS: oxyCODONE HCL IR 5 MG TAB (IMMEDIATE RELEASE) PO PRN ×2 (02:57→09:35)
[2021-08-29 07:14] LABS: BUN Creatinine Ratio 23.7 (10-20); Calcium 9.6 mg/dl (8.5-10.1); Creatinine Clr Calc Pharmacy 43.6 ml/min; Est GFR (African American) 56.9 ml/min; Est GFR (Non-African American) 49.1 ml/min
[2021-08-29] MEDS: APIXABAN 5 MG TABLET PO SCH (09:21)
[2021-08-29] MEDS: METOPROLOL TARTRATE 25 MG TAB PO SCH (09:21)
[2021-08-29] MEDS: SODIUM CHLORIDE 1 GM TABLET PO SCH (09:21)
[2021-08-29] MEDS: MAGNESIUM OXIDE 400 MG TAB PO SCH (09:21)
[2021-08-29] MEDS: lisinopril 20 MG TAB PO SCH (09:21)
[2021-08-29] MEDS: cefTRIAXone SODIUM 2,000 MG in DEXTROSE 5% 50 ML IV SCH (09:25)
--- NOTE | 2021-08-29 10:41 | Discharge Summary ---
Date of Service August 29, 2021 Admission HPI Per Admitting Provider 81 YOF with past medical history: Afib (on Eliquis), HTN, HLD, CKD III, Pneumonia in January 2020 with ICU admission, obesity. Patient comes to the emergency room today after suffering a fall at home. The patient was walking in to the house following grocery shopping behind her and he accidentally bumped into her, she then fell on to her left side on the concrete. She had minimal pain to her hip she says, but because she was on the Eliquis she called EMS. In the EMD she had minimal pain with movement. She had a X-ray of her pelvis and left hip, that revealed Slightly impacted subcapital left femoral neck fracture. Currently her pain is controlled and there is no dislocation or malpositioning. Her HR is in afib with RVR 120-140, she was given 2 doses of IV metoprolol with minimal effect. Her magnesium is 1.6 so will replace and continue with rate controlling agents. Patient will be admitted for pain control, will hold her Apixaban, Orthopaedics consult, and rate control. Patient history of Afib noted on admission in 02/04 following admission for sepsis and PNA. She was rate controlled with amiodarone and started on Eliquis- subsequently converted back to NSR and was discharged on 30 day event monitor. This was reviewed predominantly NSR with afib events and controlled HR while on her Metoprolol 50mg PO BID. She was then placed back on Eliquis for anticoagulation. Her last dose of Eliquis was on 08/20/21 in the morning. She does walk with a cane and uses a walker when it rains or is wet outside. She denies any chest pain or palpitations when she is walking or doing her physical therapy. She is able to go up 4-5 steps but stops secondary to her ankle pain that she has following ankle surgery repair in 2019. She denies any dyspnea at rest or with any exertion or orthopnea. She had an ECHO done in 02/04 with EF 60- 65% normal LV function and ventricular wall thickness and no valve abnormalities. Her asthma is well controlled and she reports using her inhaler 1-2 times per week. Her perioperative risk of perioperative myocardial infraction or cardiac arrest of 0.22%, and Revised Cardiac Risk assessment of NH, Pulmonary edema, VFib/ca rdiac arrest is 0.4%. Patient has had her COVID vaccination and her COVID test on admission is: NEGATIVE Admission Exam Per Admitting Provider PHYSICAL EXAM: General: awake, alert, no apparent distress Head: Normocephalic, atraumatic ENT: PERRL, EOMI, no pharyngeal exudate, mucous membranes moist Neuro: AAO x 3, speech clear and appropriate, strength intact bilaterally 5/5, sensation intact and equal all extremities and dermatomes, no pronator drift Chest: equal rise and fall of the chest, no accessory muscle use, no heaves or thrills, Clear to auscultation, on room air, Cardiac: irregular rate and rhythm, telemetry reviewed- afib with RVR, skin warm dry, cap refill <3 seconds, peripheral pulses +2 no JVD, no murmur, no edema GI: NABS x 4 quadrants, soft, nontender to palpation, no rebound, guarding or tenderness : Spontaneously voiding, no pain, no CVA tenderness, Extremities: left hip pain, currently controlled mild left leg shortening- strong pulses and normal sensation throughout Psych: Normal mood and affect Skin: no rash or erythema Principal Diagnosis Left subcapital hip fracture Discharge Exam General: A&Ox3. NAD. Cooperative. HEENT: Atraumatic, normocephalic. Pupils equal and reactive to light and accommodation. Patient with resting strabismus/exotropia which corrects with intention focus. Pulm: Good air movement without overt -wheezes, -rales, -rhonchi. Symmetrical chest rise. No increase work of breathing. No respiratory distress. Cardiac: RRR, -mrg. Radial pulses intact and symmetrical. Abdominal: Nontender, nondistended, soft. BS present. Extremity: Left hip surgical site bandage clean/dry/intact. Some tension bullae at border of prior tegaderm with clear fluid without purulence/erythema. Improved from prior. Nontender to palpation. Discharge Data Allergies Allergy/AdvReac Type Severity Reaction Status Date / Time Penicillins Allergy Unknown Unknown Verified 08/22/21 09:39 Sulfa (Sulfonamide Allergy Unknown Unknown Verified 08/22/21 09:39 Antibiotics) amoxicillin AdvReac Intermediate Hypotension Verified 08/22/21 09:39 Consultations 08/20/21 17:43 Consult Orthopedic Surgery Routine 08/20/21 17:48 ED Decision to Admit Stat 08/20/21 22:12 Consult Anesthesiology Routine Consult Orthopedic Surgery Routine 08/23/21 08:04 Consult Nephrology Routine Procedures Performed Operation Date: 08/23/21 08:30 Actual Procedures p Left Hip Cannulated Screws Open Reduction Internal Fixation(Left) - Dewey Arenas DO Ordered Studies 08/20/21 16:51 CT head/brain wo con Stat 08/23/21 [place] hip LT 2-3V Routine Hospital Course (1) 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 Repeat BMP/CBC within 1 week 2. Complete 5-day course of antibiotics for UTI with ciprofloxacin to 50 mg p.o. twice daily. Patient with normal QT interval during admission. 3. Outpatient rehab at senior care facility 4. Down titration of narcotic analgesia, use as needed for pain. 5. Follow sodium, adjust sodium tablets as needed based on BMP for hyponatremia Left hip fracture 2/2 osteoporosis Status post ORIF 08/23/2021 Continue pain control with oxycodone 5 mg p.o. every 4 hours as needed decrease to every 6 hours as needed on discharge Underwent PT OT during admission Patient declined for acute rehab, ultimately discharged to SNF Continue ARMINDA Continue Eliquis (2) Fall: As above (3) Atrial fibrillation: Patient with refractory A. fib 08/22, treated with Cardizem gtt. and converted to NSR Patient Lopressor increased from 50 mg to 75 mg p.o. twice daily, Cardizem discontinued Adequate rate control in sinus following above Continue Eliquis (4) Hypertension: Adequate control today - Triamterene/HCTZ discontinued do not continue on discharge 2/2 hyponatremia. Continue home amlodipine Metoprolol as above Continue lisinopril Continue to follow (5) Chronic kidney disease: * CKD stage 3, creat at baseline (6) Hyponatremia: - Chronic over the past year. - Stoppred Triamterene/HCTZ. Nephrology consulted. Recommend continuing sodium chloride 2 g daily, liberalize salt in diet, limit free water to 1500 cc daily and avoiding thiazides in future BMP daily (7) Hypomagnesemia: Continue Mag-Ox 400 mg p.o. twice daily (8) Right shoulder pain: - Arthritic changes, nothing acute (9) UTI (urinary tract infection): - Pt febrile 2x as previously noted. Developed dysuria and urine with foul odor during admission - Suspect UTI. Dysuria resolved 08/28 with treatment below, afebrile. UC positive for Citrobacter and Enterococcus. - Empiric rocephin tolerated well, narrowed to ciprofloxacin based on above urine culture and sensitivities, discharged to complete 3 additional days to complete 5-day course of antibiotics. Patient defervesced and did clinically well with above treatment. Total Time Total Time Spent Total Time Spent (In Minutes): Total time spent preparing discharge 35 minutes including documentation, direct patient care, coordination of care, review of labs and images. Discharge Plan Discharge Items Patient Disposition: Transfer Longterm Fac Reason For Visit: IMPACTED SUBCAPITAL LEFT FEMORAL NECK FRACTURE Discharge Diagnosis: L Femoral Neck Fracture Activity: Per Instructions section Weightbearing: Left toe touch Weightbearing Comment: with walker or crutches Non-emergency contact: Surgeon Call non-emergency contact if: you have any medication questions, your pain is not controlled, your temperature is above 101.5 and your wound has increased redness Follow-up/Referrals: Paresh Myers MD [Primary Care Provider] - Dewey Arenas DO [Surgeon] - (Follow up in 10-14 days from the day of surgery for a wound check.) Dago-Annel Dubose CRNP [Nurse Practitioner] - (Follow up in 6 weeks for osteoporosis check up. ) Diet: Regular Addtl Attending Provider Instructions: You are seen in the hospital for hip fracture. You are treated with surgery and additional recommendations from the surgery team have been made as noted below. During admission you were noted to have developed a urinary tract infection and were placed on antibiotics. You have been discharged on antibiotics as below You are found to have a urinary tract infection during admission. You are treated with antibiotics during admission, you have been discharged to complete 3 additional days of antibiotics as outpatient. Please take ciprofloxacin 250 mg every 12 hours for 3 additional days to complete a 5-day course of treatment. Your blood pressure medicines have been adjusted as noted below. Your metoprolol tartrate has been increased to 75 mg p.o. twice daily. Please stop taking triameterene-hctz at this time due to low sodium levels. Due to low sodium levels you have been prescribed salt tablets by nephrology. Please take sodium chloride 2 g by mouth daily. You should have repeat BMP performed at the [facility] facility within 1 week. A follow-up appointment is being scheduled for you with your primary care provider, Dr. Myers. You should be seen within 2 weeks. You should receive a call to confirm your appointment. If you do not receive a call, please call his office at the number above. Appointments are being scheduled for you with orthopedics as noted above. You should receive a call to confirm these appointments. If you do not receive a call, please contact their office at the phone numbers above. If you develop any new or worsening symptoms including fever, chills, sweats, chest pain, chest pressure, difficulty breathing, uncontrolled nausea/vomiting, rash, wheezing, passing out or nearly passing out, bleeding, black/bloody bowel movements, or other new or concerning symptoms please call your primary care physician, or call 911 for re-evaluation in the emergency department if you are very concerned. Addtl Outside Machinist Apprentice Provider Instructions: [facility] DISCHARGE INSTRUCTIONS: HIP FRACTURE SELF CARE INSTRUCTIONS: A. You are to ambulate with a walker or crutches for approximately 6 weeks. B. You are WEIGHT BEARING TOLERATE/ PARTIAL WEIGHT BEARING/ TOE TOUCH WEIGHT BEARING on your operative lower extremity for at least 6 weeks. C. Wear low heeled shoes with non-slip soles D. Be sure that your floors are free of things that could trip you throw rugs, electrical cords, and small objects. Avoid wet and waxed floors, especially with crutches/walker/cane. E. Try to walk several times a day with rest periods between. F. You may shower 48 hours after surgery and get the incision area wet, but DO NOT soak or submerge incision area in water. (No baths, swimming pools, hot tubs) G. You may have a large, band-aid like dressing over your incision (Aquacel). This will remain on your incision for 7 days, and then can be removed. You CAN shower with this on. If incision is leaking through the dressing, please call the office . H. Do NOT apply soap or any ointment/lotions directly over incision. I. You may use ice as needed to operative site. SPECIAL CARE INSTRUCTIONS: VERY IMPORTANT TO READ AND REVIEW A. You may be at risk for phlebitis or blood clots. a. Wear surgical stockings (AZALIA hose) for 2 weeks after surgery to improve circulation and reduce swelling. b. Take APIXABAN 5MG TWICE DAILY or as directed by your phyisician. This is your blood thinner. c. If you are on Coumadin- you will have daily/weekly blood work to monitor your levels. This will be done by either your family physician/devulcanizer operator (if you are on Coumadin chronically) versus your orthopedic surgeon. Expect a phone call the day of or the day after your blood work is drawn to adjust your dose accordingly. B. There are a few signs you need to watch for after you are home. Call [facility] at [phone] if you experience any of the following: a. If you have a temperature of 101 degrees or higher. b. Sudden increase in pain in your hip not relieved by rest or pain medication. c. Any fluid or drainage from the incision; redness of the incision. d. Shortness of breath or chest pain. C. Pain Medication: a. You will be prescribed pain medication upon discharge that should last till your first post-operative appointment. b. If you experience nausea and/or skin rash, dis continue this medication and contact our office for an alternative medication. c. Caution- narcotic pain medication can cause constipation. FOLLOW UP VISIT: Please call [facility] at [phone] to schedule a follow up appointment 10-14 days from the date of your surgery date. Pending Studies at Discharge: No Stand-Alone Forms: My [facility] Skilled Items Patient informed of condition?: Yes DNR: No Discharge Level of Care: Skilled Communicable Disease: No Discharge Prognosis: Stable Lines: None Urinary Catheter: No Medications and DC Order Prescriptions: New oxycodone 5 mg Tablet 5 mg PO Q6H PRN (Reason: pain) Qty: 20 RF: 0 sodium chloride 1 gram Tablet 2 g PO DAILY 30 Days Qty: 60 RF: 0 ciprofloxacin HCl 250 mg tablet 250 mg PO BID 3 Days Qty: 6 RF: 0 Continued Eliquis 5 mg tablet 5 mg PO BID Qty: 60 RF: 11 Hold Instructions: No documented atrial fibrillation acetaminophen [Tylenol Extra Strength] 500 mg tablet 250 mg PO ONCE PRN (Reason: Pain) RF: 0 lisinopril 20 mg Tablet 20 mg PO BID RF: 0 amlodipine 2.5 mg Tablet 2.5 mg PO DAILY RF: 0 simvastatin 20 mg Tablet 20 mg PO HS RF: 0 albuterol sulfate [Ventolin HFA] 90 mcg/actuation Hfa Aerosol Inhaler 1 - 2 puff INHALATION DAILY PRN (Reason: sob/wheezing) RF: 0 Caltrate 600 plus D 600 mg (1,500 mg)-800 unit Tablet,Chewable 1 tab PO DAILY RF: 0 Changed metoprolol tartrate 50 mg Tablet 75 mg PO BID 30 Days Qty: 0 RF: 0 Discontinued triamterene-hydrochlorothiazid 75-50 mg tablet 1 tab PO DAILY RF: 0 Discharge Orders: Discharge Order (Routine); Ordered 08/29/21 Ordered By: Mike Dutta Admission Data Admit Date/Time: 08/20/21 19:13 Attending Provider: Mike Dutta Admit Provider: Mohamud Rocha Primary Care Provider: Paresh Myers Other Providers: Sedrick Osullivan ; Dewey Arenas ; Mahamed Spaulding ; Emelia Forte Thomas J ; Maryann Arnold ; Heath Long ; Maximino Brandt ; Girish Mckinnon Andrew J. ; Maximino Walter ; Joe Luque ; Paul Florian ; Vaughn Jimenes ; Luis Loza ; Maryann Coronado ; Ray Edmondson ; Yaakov Bird ; Annel Perkins John ; Lynette Sidhu ; Ariel Hoskins ; Mohamud Rocha ; Sosa Patterson ; Bailey Lopez ; Ivon Marie ; Amanda Noland ; Sonja Porter ; Ron Austin ; Ever Naidu ; Jeo Hayward ; Gio Song ; Jennifer Song ; Julio C Pate ; Alycia Grubbs ; Daniel Lopez ; Min Salmeron ; Presley Arzola ; Sami Tanner ; Yaritza Galo ; Girish Watson ; Lillian Banks ; Lynette Watson ; Rommel Shanks ; Genia Rodriguez ; Calixto Valdez ; Venessa Peralta ; Skyla Bhatt ; Genia Lorenzo ; Ynia Rubi ; Rohith Prado ; Shelby Weir ; Jazmin Marin ; Li Esqueda ; Zehra Patel ; Klever Patel V ; Kanu Talbert ; Bailey Lafleur ; Mahamed Quezada ; Lupe Felipe ; Elizabeth Chung ; Klever Youssef ; Varun Galo ; Umang Flaherty ; Corina Jauregui ; Kalyn Clifford ; Klever Wong ; Li Dela Cruz ; Robert Yang ; Eligio Tanner ; Christa Connell ; Maximino Olivares ; Bird Johnson ; David Mike ; Robert Wallace ; Maximino Esquivel ; Ron Kaplan Jr ; Delores Ballard ; Stacy Vanessa ; Louis Dumont ; Mohamud Lacey ; Sallie Newton ; Sanya Clinton ; [facility] ; [facility] Coding Level of Care Code D/C DAY MANAGEMENT >30 MINS Diagnoses 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
== END 2021-08-29 11:43 | DRG 481 ==
LOC: ED 16:20 → SUATTDRO 19:13 → 2N 19:13 → 1E 08-22 17:31 → 2N 08-23 10:11